=== PATIENT | female | born 1950 | race Caucasian/White ===

== ENCOUNTER 2020-02-29 08:02 | Outpatient (REF) | payer MEDICARE, OTHER, SELFPAY ==
--- NOTE | 2020-02-29 08:07 | MM_ITS ---
EXAMINATION: BONE DENSITOMETRY CLINICAL INDICATION: Age-related osteoporosis without current pathological fracture. COMPARISON: This is the patient's baseline examination. TECHNIQUE: Using a [employer] DXA System (software version: 13.1) manufactured by [employer], dual-energy x-ray absorptiometry was performed of the lumbar spine and left hip. The images are of good technical quality. Summary results are attached. FINDINGS: AP SPINE L1-L4: Current: BMD 1.035 g/cm2, Z-score 0.3, T-score -1.2, osteopenia, 3.2% increase from previous, 4.9% increase from baseline (<5% change is not significant). Prior: BMD 1.003 g/cm2. Baseline: BMD 0.987 g/cm2. LEFT FEMUR, NECK: Current: BMD 0.689 g/cm2, Z-score -1.0, T-score -2.5, osteoporosis. Prior: BMD 0.681 g/cm2. Baseline: BMD 0.738 g/cm2. LEFT FEMUR, TOTAL: Current: BMD 0.679 g/cm2, Z-score -1.3, T-score -2.6, osteoporosis, 3.3% decrease from previous, 9.2% decrease from baseline (<5% change is not significant). Prior: BMD 0.702 g/cm2. Baseline: BMD 0.748 g/cm2. IDENTIFIED RISK FACTORS: Osteoporosis. HISTORY OF FRACTURE: None listed. MEDICATIONS: Calcium supplements or multivitamin, bisphosphonates. MM/XR DEXA axial skeleton IMPRESSION: 1. DIAGNOSIS: Osteoporosis based on the lowest T-score value of -2.6 in the total femur applying World Health Organization criteria. 2. 10-YEAR FRACTURE RISK PREDICTION, FRAX: Major osteoporotic fracture (clinical spine, forearm, hip or shoulder) 14.8%. Hip fracture 3.7%. 3. Treatment Recommendations: NOF guidelines recommend consideration for treatment in postmenopausal women and men age 50 and older presenting with the following: -A hip or vertebral (clinical or morphometric) fracture. -T-score less than or equal to -2.5 at the femoral neck or spine after appropriate evaluation to exclude secondary causes. -Low bone mass at the hip or spine and a 10-year fracture probability by FRAX of greater than or equal to 3% for hip fracture or greater than or equal to 20% for major osteoporotic fracture based on the [place] adapted WHO algorithm. 4. Other Recommendations: All treatment decisions require clinical judgment and consideration of individual patient factors, including patient preferences, comorbidities, previous drug use, risk factors not captured in the FRAX model (e.g. frailty, falls, vitamin D deficiency, increased bone turnover, interval significant decline in bone density) and possible under or overestimation of fracture risk by FRAX. Additional medical evaluation for secondary cause of low bone mineral density may be appropriate. FUTURE SCAN RECOMMENDATION: People with diagnosed cases of osteoporosis or at high risk for fracture should have regular bone mineral density tests. For patients eligible for Medicare, routine testing is allowed once every 2 years. The testing frequency can be increased to one year for patients who have rapidly progressing disease, those who are receiving or discontinuing medical therapy to restore bone mass, or have additional risk factors.
== END 2020-02-29 08:03 | disposition home or self-care (01) ==
LOC: HO.MAMMO 08:02
PROVIDERS: PCP Internal Medicine; Visit Provider Internal Medicine
DX: M81.0 Age-related osteoporosis without current pathological fracture (principal)
CPT/HCPCS: 77080

== ENCOUNTER → 2020-07-25 11:41 | Outpatient (BNVA) | payer MEDICARE, OTHER, SELFPAY | PROVIDERS: PCP Internal Medicine; Visit Provider Internal Medicine | DX: Z13.89 Encounter for screening for other disorder (principal) | CPT/HCPCS: Q3014 ==

== ENCOUNTER 2020-07-29 07:05 | Outpatient (REF) | payer MEDICARE, OTHER, SELFPAY ==
--- NOTE | ~2020-07-29 | MR_ITS ---
EXAMINATION: MR PELVIS WITHOUT AND WITH CONTRAST CLINICAL INFORMATION: Pelvic and perineal pain. Previous exams indicates history of ovarian neoplasm. COMPARISON: Previous CT of the abdomen and pelvis February 2009 and previous pelvic ultrasounds most recent November 2017 TECHNIQUE: Sagittal, axial and coronal sequences through the pelvis with and without gadolinium. The patient received 6.5 mL intravenous Gadavist contrast. FINDINGS: The uterus is normal in size and shape measuring 5.3 x 2.9 x 4.6 cm in sagittal, AP and transverse dimension. No focal uterine lesion is seen. The endometrium does not appear thickened measuring 0.1 cm. There are nabothian cysts in the cervix. There is a small 7 x 8 mm lesion in the left adnexa measuring 7 x 8 mm. This is low signal on T1-weighted sequences, high signal on T2-weighted sequences and does not demonstrate enhancement. Appearance is suggestive of a small left ovarian cyst. The previously identified calcification in the right adnexa is not appreciated by MRI. Adnexa otherwise appear unremarkable. No ascites or adenopathy is seen. Visualized bowel is unremarkable. Vascular structures are unremarkable. No hernia is seen. There is a right hip replacement. There is a small amount of fluid seen in the soft tissues adjacent to the right hip joint anteriorly adjacent to the right iliopsoas muscle. There is severe arthritis at the left hip joint with joint space narrowing, small osteophytes and subchondral cyst formation. The left labrum appears irregular and may be torn. There is edema seen in the left femoral head and neck. A fracture is not appreciated. There are degenerative changes of the visualized lower lumbar spine. MR/MR pelvis wo/w con IMPRESSION: 7 x 8 mm simple left adnexal cyst. Severe left hip arthritis with joint space narrowing and subchondral cyst formation. There is edema in the left femoral head and neck and likely abnormal left labrum. No fracture is appreciated. This could be better evaluated with dedicated left hip MRI if clinically indicated..
[2020-07-29 08:06] LABS: Alanine Aminotransferase 13 U/L (0-31); Albumin Level 4.2 g/dL (3.5-5.0); Alkaline Phosphatase 83 U/L (39-117); Anion Gap 9 (12-20); Aspartate Amino Transferase 15 U/L (5-31); Bilirubin Total 0.8 mg/dL (0.0-1.0); Blood Urea Nitrogen 22 mg/dL (9-16); Calcium 9.3 mg/dL (8.4-10.2); Carbon Dioxide 29 mmol/L (22-29); Chloride 106 mmol/L (96-108); Estimated Glomerular Filt Rate > 60; Glucose Random 79 mg/dL (60-115); Phosphorus 3.3 mg/dL (2.7-4.5); Potassium 3.9 mmol/L (3.3-5.1); Sodium 140 mmol/L (135-145); Total Protein 6.6 g/dL (6.5-8.0)
[2020-07-29 08:26] LABS: Free T4 (Free Thyroxine) 1.32 ng/dL (0.71-1.85); Thyroid Stimulating Hormone 1.04 uIU/mL (0.32-4.0); Vitamin D 25-OH Total 38.3 ng/mL (>30)
[2020-07-30 11:17] LABS: Calcium (PTHI) 9.2 mg/dL (8.6-10.4); PTHI 39 pg/mL (14-64)
[2020-07-31 08:41] LABS: Calcium, Ionized 5.1 mg/dL (4.8-5.6)
[2020-07-31 18:02] LABS: Prot Elec - Albumin 4.2 g/dL (3.8-4.8); Prot Elec - Alpha1 0.3 g/dL (0.2-0.3); Prot Elec - Alpha2 0.6 g/dL (0.5-0.9); Prot Elec - Beta 1 0.3 g/dL (0.4-0.6); Prot Elec - Beta 2 0.3 g/dL (0.2-0.5); Prot Elec - Gamma 0.8 g/dL (0.8-1.7); Prot Elec - Total Protein 6.5 g/dL (6.1-8.1)
[2020-08-02 16:46] LABS: Alkaline Phosphatase Bone 14.9 mcg/L (5.6-29.0)
== END 2020-07-29 07:06 | disposition home or self-care (01) ==
LOC: HO.MRI 07:05
PROVIDERS: Absent Provider Internal Medicine; PCP Internal Medicine; Visit Provider Internal Medicine
DX: R10.2 Pelvic and perineal pain (principal); S39.013A Strain of muscle, fascia and tendon of pelvis, initial encounter; M81.0 Age-related osteoporosis without current pathological fracture; E55.9 Vitamin D deficiency, unspecified
CPT/HCPCS: 36415; 72197; 80053; 82306; 82330; 83970; 84075; 84100; 84155; 84165; 84439; 84443; A9585

== ENCOUNTER 2020-07-31 06:44 | Outpatient (REF) | payer MEDICARE, OTHER, SELFPAY ==
[2020-07-31 11:05] LABS: Creatinine, mg/dL 126.25
[2020-07-31 13:13] LABS: Creatinine, 24Hr Urine 0.7 G/Day (1.0-2.0); Total Volume 24 Hour Urine 575 mL
[2020-08-01 18:37] LABS: Calcium, 24 Hr Urine 71 mg/24 h; Calcium/Creatinine Ratio 108 mg/g creat (30-275); Creatinine 24Hr Urine 0.66 g/24 h (0.50-2.15)
== END 2020-07-31 06:45 | disposition home or self-care (01) ==
LOC: HO.LNP 06:44
PROVIDERS: Visit Provider Internal Medicine
DX: M81.0 Age-related osteoporosis without current pathological fracture (principal)
CPT/HCPCS: 82340; 82570

== ENCOUNTER 2020-07-31 07:00 | Outpatient (RCR) | payer MEDICARE, OTHER, SELFPAY ==
--- NOTE | 2020-07-31 08:07 | MHC.PT.DC ---
[facility] [place] Office [place] Office [place] Office [address] [phone] F: [phone] F: [phone] F: [phone] F: [phone] Physical Therapy Discharge Report Diagnosis: LEFT HIP STRAIN Date of Surgery: NA Date of Evaluation: 05/28/20 Date of Discharge: 07/31/20 Treatments to Date: 16 Cancellations to Date: 0 No Shows to Date: 0 Discharge Status: Achieved Goals Improved Function Independent with HEP Patient Elected to Stop Discharge Summary: Jenelle had a Hip/pelvis MRI and it showed a labral tear and severe hip arthritis. The patient was given a HEP for hip strengthening. We discharged from skilled PT due to pt plateauing with pain levels. She has made improvements in movement patterns and motion, but she was still having pain with certain hip motions, pain upon initial standing. Electronically signed by: Enriqueta King PT DPT Please sign and return to therapist. Thank you for your referral.
== END 2020-09-17 08:00 | disposition home or self-care (01) ==
LOC: HO.PT 07:00
PROVIDERS: PCP Internal Medicine; Visit Provider Physician Assistant
DX: S39.013A Strain of muscle, fascia and tendon of pelvis, initial encounter (principal)
CPT/HCPCS: 97035; 97110; 97112; 97116; 97140; 97162; 97535

== ENCOUNTER 2020-09-10 06:54 | Outpatient (REF) | payer MEDICARE, OTHER, SELFPAY ==
[2020-09-10 08:13] LABS: Alanine Aminotransferase 11 U/L (0-31); Albumin Level 3.9 g/dL (3.5-5.0); Alkaline Phosphatase 72 U/L (39-117); Anion Gap 11 (12-20); Aspartate Amino Transferase 16 U/L (5-31); Bilirubin Total 0.7 mg/dL (0.0-1.0); Blood Urea Nitrogen 20 mg/dL (9-16); Calcium 9.4 mg/dL (8.4-10.2); Carbon Dioxide 27 mmol/L (22-29); Chloride 108 mmol/L (96-108); Cholesterol 222 mg/dL; Estimated Glomerular Filt Rate > 60; Glucose Fasting 101 mg/dL (60-99); HDL Cholesterol 65 mg/dL; LDL Cholesterol Calculated 147 mg/dl; Sodium 142 mmol/L (135-145); Total Protein 6.2 g/dL (6.5-8.0); Triglycerides 51 mg/dL
== END 2020-09-10 06:55 | disposition home or self-care (01) ==
LOC: HO.LAB 06:54
PROVIDERS: Absent Provider Internal Medicine; PCP Internal Medicine; Visit Provider Internal Medicine
DX: E78.5 Hyperlipidemia, unspecified (principal); E78.00 Pure hypercholesterolemia, unspecified; E03.9 Hypothyroidism, unspecified
CPT/HCPCS: 36415; 80053; 80061; 84443

== ENCOUNTER 2020-10-08 06:40 | Day surgery (SDC) | payer MEDICARE, OTHER, SELFPAY ==
--- NOTE | 2020-10-07 09:31 | HO.ANESPROP2 ---
Documented by User: Suzie Burrell 10/07/20 09:31 HPI - Anesthesia Eval Consult details Narrative: 70yo F for Colonoscopy PMFSH Active Problems Active Problems: All Active Problems (Updated 09/12/20 @ 09:09 by Brittney Cruz MD) Dyslipidemia (Acute) Hip pain (Acute) Vitamin D deficiency (Acute) Pelvic pain in female (Acute) Strain of left inguinal muscle (Acute) Osteoporosis (Acute) Depression with anxiety (Acute) Hypothyroidism (Acute) Past Medical History Medical History Depression with anxiety Dyslipidemia Hip pain History of breast cancer Hypothyroidism Osteoporosis Pelvic pain in female Vitamin D deficiency Family History Family History Father FH: prostate cancer Mother Stroke Hypertension Osteoporosis Sister COPD (chronic obstructive pulmonary disease) Surgical History Surgical History History of section History of hip replacement History of lumpectomy of right breast Social History Social History Housing: House Alcohol intake: never Patient Tobacco Use Status: Never used Tobacco Second Hand Smoke Exposure: No Use of substances other than those prescribed or required for medical reasons: No Are you DNR?: No Advance Directives: Yes Advance Directives on File: Yes Advance Directives Date on File: 10/08/20 service: No Current occupational status: employed (self employed) Meds Allergies Allergy/AdvReac Type Severity Reaction Status Date / Time No Known Allergies Allergy Verified 09/12/20 08:18 Home Medications Medication Instructions Recorded Confirmed Last Taken Type aspirin 81 mg tablet,delayed 81 mg PO DAILY 01/04/20 09/12/20 09/24/20 History release Exam Exam Date and Time: October 07, 2020 0931 Pertinent Lab Results Pertinent Lab Results: Laboratory Tests 09/10/20 07:12 Sodium 142 Potassium 4.0 Chloride 108 Carbon Dioxide 27 BUN 20 H Creatinine 0.83 Assessment and Plan Assessment Anesthesia Assessment: Chart Reviewed Documented by User: Kristin Ramirez 10/08/20 08:09 PMFSH Past Medical History Medical History Depression with anxiety Dyslipidemia Hip pain History of breast cancer Hypothyroidism Osteoporosis Pelvic pain in female Vitamin D deficiency Family History Family History Father FH: prostate cancer Mother Stroke Hypertension Osteoporosis Sister COPD (chronic obstructive pulmonary disease) Surgical History Surgical History History of section History of hip replacement History of lumpectomy of right breast Social History Social History Housing: House Alcohol intake: never Patient Tobacco Use Status: Never used Tobacco Second Hand Smoke Exposure: No Use of substances other than those prescribed or required for medical reasons: No Are you DNR?: No Advance Directives: Yes Advance Directives on File: Yes Advance Directives Date on File: 10/08/20 service: No Current occupational status: employed (self employed) Meds Allergies Allergy/AdvReac Type Severity Reaction Status Date / Time No Known Allergies Allergy Verified 09/12/20 08:18 Home Medications Medication Instructions Recorded Confirmed Last Taken Type aspirin 81 mg tablet,delayed 81 mg PO DAILY 01/04/20 09/12/20 09/24/20 History release Exam Airway Mallampati Class: I TM Dist: >3cm Neck ROM: Full Loose/Missing/Broken Teeth: No Heart: RRR Lungs: CTA Assessment and Plan Assessment Anesthesia Assessment: Anesthesia Plan Discussed and Chart Reviewed Final Anesthetic Review NPO: Yes ASA Class: II Final Preanesthetic Review: Meds/Allgs Chart Reviewed, Consent Obtained/Reviewed and Anes Risks/Benef Reviewed Patient Risk: Low Procedure Risk: Low Anesthetic Plan Anesthetic Plan: MAC: Disposition: Standard PACU
[2020-10-08 07:05] VITALS: BP 128/73; PULSE 70; RESP 16; TEMP 36.1; O2SAT 99; BMI 22.5
[2020-10-08] MEDS: Lactated Ringers 1,000 ML 100 ML IVCONT (07:16)
--- NOTE | 2020-10-08 07:59 | MHC.SHP ---
Pre-Procedural Eval Section A Date of Service: 10/08/20 Section B Chief Complaint: Screening Details of Present Illness: see H&P no changes Relevant Family History (Specify if Yes): No Relevant Social History: None Present Medications: see Short Stay Collaborative assessment Medical History: No relevant PMH History of Previous Operations: No relevant previous surgery Allergies: Allergies Allergy/AdvReac Type Severity Reaction Status Date / Time No Known Allergies Allergy Verified 09/12/20 08:18 Review of Systems Sugical H&P ROS: Negative: Constitution, Cardiovascular, Respiratory, Neurological, Psychiatric, Hem-Onc, Allergic/Immunologic, Gastrointestinal, Genitourinary, Musculoskeletal, Integumentary, Endocrine and Eyes/Ears/Nose/Throat Exam Surgical H&P Exam: Normal: HEENT, Normal: Heart, Normal: Lungs, Normal: Extremities, Normal: Abdomen, Normal: Skin and Normal: Neurological Plan Diagnosis/Plan: Unchanged I have reviewed the history and physical and performed a pertinent physical examination on my patient. No changes have occurred unless specified.
[2020-10-08 08:35] VITALS: BP 101/55; PULSE 65; RESP 18; TEMP 36.1; O2SAT 100
--- NOTE | 2020-10-08 08:36 | PM.OP ---
Brief Operative Note Date of Service: 10/08/20 Pre-op diagnosis: screening Post-op diagnosis: same (colon polyp) Procedure: colonoscopy Surgeon: Ankur Hull Anesthesia: MAC Was an Forging Dies Final Finisher used for this Procedure?: No Estimated blood loss (mL): 2 Pathology: other (rectal polyp) Condition: stable Disposition: PACU
[2020-10-08 08:50] VITALS: BP 95/62; PULSE 71; RESP 16; TEMP 36.1; O2SAT 99
--- NOTE | 2020-10-08 08:56 | OP_ITS ---
SURGEON: Ankur Hull MD INDICATIONS: Colon cancer screening and prior history of adenomatous colon polyps. PREOPERATIVE DIAGNOSIS: POSTOPERATIVE DIAGNOSIS: PROCEDURE PERFORMED: ESTIMATED BLOOD LOSS: COMPLICATIONS: ANESTHESIA: ASSISTANTS: SPECIMENS: PROCEDURE: Colonoscopy to the terminal ileum with biopsy. MEDICATIONS: Monitored anesthesia care. DESCRIPTION OF PROCEDURE: History and physical performed. The risks and benefits of the procedure were explained to the patient. Informed consent was obtained. The patient was placed in the left lateral decubitus position. A digital rectal exam was performed and was found to be normal. The Olympus pediatric video colonoscope was introduced into the rectum and advanced to the cecum without difficulty. The cecum was identified by transillumination, palpation, and identification of the ileocecal valve. Examination was performed and the scope was removed. She tolerated the procedure well and was taken to recovery area in stable condition. FINDINGS: The terminal ileum was normal. The visualized colonic mucosa was within normal limits without evidence of masses or ulcers. There was some liquid stool, which was washed and suctioned. A single polyp measuring less than 5 mm that appeared hyperplastic was located in the rectum. This was removed with biopsy forceps. No other polyps were identified. There was very minimal diverticulosis of the sigmoid. Retroflexed examination showed some internal hemorrhoids. IMPRESSION: Colon polyp. RECOMMENDATION: Follow up the biopsy results. MD TORREY Abel/MATT / [id number]
== END 2020-10-08 09:50 | disposition home or self-care (01) ==
PROVIDERS: PCP Internal Medicine; Visit Provider Internal Medicine Gastroenterology
PROC: 0DJD8ZZ Inspection of Lower Intestinal Tract, Via Natural or Artificial Opening Endoscopic (ICD-10-PCS; CPT 45378; principal; 2020-10-08 08:10)
DX: Z12.11 Encounter for screening for malignant neoplasm of colon (principal); Z86.010 Personal history of colon polyps; K62.1 Rectal polyp; K57.30 Diverticulosis of large intestine without perforation or abscess without bleeding; K64.8 Other hemorrhoids; E78.5 Hyperlipidemia, unspecified; E03.9 Hypothyroidism, unspecified; E55.9 Vitamin D deficiency, unspecified; Z85.3 Personal history of malignant neoplasm of breast; Z79.899 Other long term (current) drug therapy; Z79.82 Long term (current) use of aspirin
CPT/HCPCS: 45380; 88305

== ENCOUNTER → 2020-10-09 07:25 | Outpatient (BNVA) | payer MEDICARE, OTHER, SELFPAY | PROVIDERS: PCP Internal Medicine; Visit Provider Internal Medicine | DX: M81.0 Age-related osteoporosis without current pathological fracture (principal); E03.9 Hypothyroidism, unspecified; E55.9 Vitamin D deficiency, unspecified | CPT/HCPCS: 99212 ==

== ENCOUNTER 2021-01-18 08:13 | Outpatient (REF) | payer MEDICARE, OTHER, SELFPAY ==
[2021-01-18 09:17] LABS: Alanine Aminotransferase 44 U/L (0-31); Albumin Level 4.3 g/dL (3.5-5.0); Alkaline Phosphatase 112 U/L (39-117); Anion Gap 12 (12-20); Aspartate Amino Transferase 30 U/L (5-31); Bilirubin Total 0.6 mg/dL (0.0-1.0); Blood Urea Nitrogen 21 mg/dL (9-16); Calcium 9.8 mg/dL (8.4-10.2); Carbon Dioxide 29 mmol/L (22-29); Chloride 105 mmol/L (96-108); Cholesterol 218 mg/dL; Estimated Glomerular Filt Rate > 60; Glucose Fasting 90 mg/dL (60-99); HDL Cholesterol 57 mg/dL; LDL Cholesterol Calculated 149 mg/dl; Potassium 4.8 mmol/L (3.3-5.1); Sodium 141 mmol/L (135-145); Total Protein 7.2 g/dL (6.5-8.0); Triglycerides 64 mg/dL
[2021-01-18 09:38] LABS: TSH reflex Free T4 3.03 uIU/mL (0.32-4.0)
[2021-01-18 09:39] LABS: Thyroid Stimulating Hormone 3.33 uIU/mL (0.32-4.0)
[2021-01-23 17:40] LABS: Vitamin D 25-OH, D2 <4 ng/mL; Vitamin D 25-OH, D3 47 ng/mL; Vitamin D 25-OH, Total 47 ng/mL (30-100)
== END 2021-01-18 08:14 | disposition home or self-care (01) ==
LOC: HO.LAB 08:13
PROVIDERS: PCP Internal Medicine; Visit Provider Internal Medicine
DX: E78.00 Pure hypercholesterolemia, unspecified (principal); E78.5 Hyperlipidemia, unspecified; E55.9 Vitamin D deficiency, unspecified
CPT/HCPCS: 36415; 80053; 80061; 82306; 84443

== ENCOUNTER 2021-06-16 07:12 | Outpatient (REF) | payer MEDICARE, OTHER, SELFPAY ==
[2021-06-16 08:43] LABS: Alanine Aminotransferase 21 U/L (0-31); Albumin Level 4.1 g/dL (3.5-5.0); Alkaline Phosphatase 73 U/L (39-117); Anion Gap 13 (12-20); Aspartate Amino Transferase 19 U/L (5-31); Bilirubin Total 0.9 mg/dL (0.0-1.0); Blood Urea Nitrogen 21 mg/dL (9-16); Calcium 9.7 mg/dL (8.4-10.2); Carbon Dioxide 26 mmol/L (22-29); Chloride 108 mmol/L (96-108); Cholesterol 222 mg/dL; Estimated Glomerular Filt Rate > 60; Glucose Fasting 86 mg/dL (60-99); HDL Cholesterol 62 mg/dL; LDL Cholesterol Calculated 148 mg/dl; Phosphorus 3.5 mg/dL (2.7-4.5); Potassium 4.5 mmol/L (3.3-5.1); Sodium 142 mmol/L (135-145); Total Protein 6.6 g/dL (6.5-8.0); Triglycerides 62 mg/dL
[2021-06-16 09:08] LABS: Free T4 (Free Thyroxine) 1.34 ng/dL (0.71-1.85); Thyroid Stimulating Hormone 0.68 uIU/mL (0.32-4.0); Vitamin D 25-OH Total 41.2 ng/mL (>30)
[2021-06-17 11:56] LABS: Calcium (PTHI) 9.6 mg/dL (8.6-10.4); PTHI 38 pg/mL (16-77)
[2021-06-18 08:20] LABS: Calcium, Ionized 5.2 mg/dL (4.8-5.6)
[2021-06-19 14:16] LABS: Alkaline Phosphatase Bone 14.8 mcg/L (5.6-29.0)
[2021-06-19 18:22] LABS: N-Telopeptide 47 (see note); NTXCreaRU 93 mg/dL (20-275)
== END 2021-06-16 07:13 | disposition home or self-care (01) ==
LOC: HO.LAB 07:12
PROVIDERS: Internal Medicine; PCP Internal Medicine; Visit Provider Internal Medicine
DX: M81.0 Age-related osteoporosis without current pathological fracture (principal); E55.9 Vitamin D deficiency, unspecified; E78.5 Hyperlipidemia, unspecified
CPT/HCPCS: 36415; 80053; 80061; 82306; 82330; 82523; 83970; 84075; 84100; 84439; 84443

== ENCOUNTER 2021-06-18 08:13 | Outpatient (REF) | payer MEDICARE, OTHER, SELFPAY ==
[2021-06-18 14:14] LABS: Creatinine, 24Hr Urine 0.6 G/Day (1.0-2.0); Total Volume 24 Hour Urine 575 mL
[2021-06-20 15:40] LABS: Calcium, 24 Hr Urine 61 mg/24 h; Calcium/Creatinine Ratio 100 mg/g creat (30-275); Creatinine 24Hr Urine 0.61 g/24 h (0.50-2.15)
== END 2021-06-18 08:14 | disposition home or self-care (01) ==
LOC: HO.HMGCLNP 08:13
PROVIDERS: Visit Provider Internal Medicine
DX: M81.0 Age-related osteoporosis without current pathological fracture (principal); E03.9 Hypothyroidism, unspecified; E55.9 Vitamin D deficiency, unspecified
CPT/HCPCS: 82340; 82570; 99212

== ENCOUNTER → 2021-07-31 12:36 | Outpatient (BNVA) | payer MEDICARE, OTHER, SELFPAY | PROVIDERS: PCP Internal Medicine; Visit Provider Internal Medicine Endocrinology, Diabetes & Metabolism | DX: M81.0 Age-related osteoporosis without current pathological fracture (principal) | CPT/HCPCS: 96372; J0897 ==

== ENCOUNTER 2021-09-01 06:57 | Outpatient (REF) | payer MEDICARE, OTHER, SELFPAY ==
[2021-09-01 07:59] LABS: Alanine Aminotransferase 13 U/L (0-31); Albumin Level 4.2 g/dL (3.5-5.0); Alkaline Phosphatase 72 U/L (39-117); Anion Gap 11 (12-20); Aspartate Amino Transferase 14 U/L (5-31); Bilirubin Total 0.6 mg/dL (0.0-1.0); Blood Urea Nitrogen 28 mg/dL (9-16); Calcium 9.8 mg/dL (8.4-10.2); Carbon Dioxide 25 mmol/L (22-29); Chloride 106 mmol/L (96-108); Estimated Glomerular Filt Rate > 60; Glucose Random 118 mg/dL (60-115); Potassium 4.5 mmol/L (3.3-5.1); Sodium 137 mmol/L (135-145); Total Protein 6.7 g/dL (6.5-8.0)
[2021-09-01 08:22] LABS: Free T4 (Free Thyroxine) 1.04 ng/dL (0.71-1.85); Thyroid Stimulating Hormone 2.58 uIU/mL (0.32-4.0); Vitamin D 25-OH Total 38.9 ng/mL (>30)
[2021-09-02 14:16] LABS: Calcium (PTHI) 10.1 mg/dL (8.6-10.4); PTHI 38 pg/mL (16-77)
== END 2021-09-01 06:58 | disposition home or self-care (01) ==
LOC: HO.LAB 06:57
PROVIDERS: PCP Internal Medicine; Visit Provider Internal Medicine
DX: E03.9 Hypothyroidism, unspecified (principal); E55.9 Vitamin D deficiency, unspecified; M81.0 Age-related osteoporosis without current pathological fracture
CPT/HCPCS: 36415; 80053; 82306; 83970; 84439; 84443

== ENCOUNTER 2021-11-05 06:48 | Outpatient (REF) | payer MEDICARE, OTHER, SELFPAY ==
[2021-11-05 07:46] LABS: Alanine Aminotransferase 16 U/L (0-31); Alkaline Phosphatase 46 U/L (39-117); Anion Gap 11 (12-20); Aspartate Amino Transferase 17 U/L (5-31); Bilirubin Total 0.6 mg/dL (0.0-1.0); Blood Urea Nitrogen 17 mg/dL (9-16); Calcium 9.2 mg/dL (8.4-10.2); Carbon Dioxide 27 mmol/L (22-29); Chloride 107 mmol/L (96-108); Cholesterol 207 mg/dL; Estimated Glomerular Filt Rate > 60; Glucose Fasting 91 mg/dL (60-99); HDL Cholesterol 58 mg/dL; LDL Cholesterol Calculated 138 mg/dl; Potassium 4.3 mmol/L (3.3-5.1); Sodium 141 mmol/L (135-145); Total Protein 6.2 g/dL (6.5-8.0); Triglycerides 58 mg/dL
[2021-11-05 08:07] LABS: Thyroid Stimulating Hormone 0.88 uIU/mL (0.32-4.0)
[2021-11-12 20:55] LABS: N-Telopeptide 21 (see note); NTXCreaRU 88 mg/dL (20-275)
== END 2021-11-05 06:49 | disposition home or self-care (01) ==
LOC: HO.LAB 06:48
PROVIDERS: Internal Medicine; PCP Internal Medicine; Visit Provider Internal Medicine
DX: E78.5 Hyperlipidemia, unspecified (principal); E03.9 Hypothyroidism, unspecified; E55.9 Vitamin D deficiency, unspecified; M81.0 Age-related osteoporosis without current pathological fracture
CPT/HCPCS: 36415; 80053; 80061; 82306; 82523; 84443

== ENCOUNTER 2022-02-09 06:48 | Outpatient (REF) | payer MEDICARE, OTHER, SELFPAY ==
[2022-02-09 07:58] LABS: Alanine Aminotransferase 17 U/L (0-31); Albumin Level 4.3 g/dL (3.5-5.0); Alkaline Phosphatase 59 U/L (39-117); Anion Gap 15 (12-20); Aspartate Amino Transferase 19 U/L (5-31); Bilirubin Total 0.9 mg/dL (0.0-1.0); Blood Urea Nitrogen 26 mg/dL (9-16); Calcium 9.7 mg/dL (8.4-10.2); Carbon Dioxide 26 mmol/L (22-29); Chloride 105 mmol/L (96-108); Estimated Glomerular Filt Rate > 60; Glucose Random 85 mg/dL (60-115); Potassium 4.2 mmol/L (3.3-5.1); Sodium 142 mmol/L (135-145); Total Protein 6.7 g/dL (6.5-8.0)
[2022-02-09 08:19] LABS: Thyroid Stimulating Hormone 2.91 uIU/mL (0.32-4.0)
[2022-02-10 10:56] LABS: Calcium (PTHI) 9.8 mg/dL (8.6-10.4); PTHI 35 pg/mL (16-77)
== END 2022-02-09 06:49 | disposition home or self-care (01) ==
LOC: HO.LAB 06:48
PROVIDERS: Internal Medicine; PCP Internal Medicine; Visit Provider Internal Medicine
DX: E03.9 Hypothyroidism, unspecified (principal); M81.0 Age-related osteoporosis without current pathological fracture
CPT/HCPCS: 36415; 80053; 83970; 84443; 96372; J0897

== ENCOUNTER 2022-02-24 07:07 | Outpatient (REF) | payer MEDICARE, OTHER, SELFPAY ==
[2022-02-24 08:33] LABS: Estimated Glomerular Filt Rate > 60
[2022-02-26 14:14] LABS: Calcium (PTHI) 9.4 mg/dL (8.6-10.4); PTHI 60 pg/mL (16-77)
== END 2022-02-24 07:08 | disposition home or self-care (01) ==
LOC: HO.LAB 07:07
PROVIDERS: PCP Internal Medicine; Visit Provider Internal Medicine
DX: M81.0 Age-related osteoporosis without current pathological fracture (principal)
CPT/HCPCS: 36415; 82565; 83970

== ENCOUNTER 2022-05-18 06:45 | Outpatient (REF) | payer MEDICARE, OTHER, SELFPAY ==
[2022-05-18 08:28] LABS: Alanine Aminotransferase 31 U/L (0-31); Albumin Level 3.9 g/dL (3.5-5.0); Alkaline Phosphatase 77 U/L (39-117); Anion Gap 12 (12-20); Aspartate Amino Transferase 24 U/L (5-31); Bilirubin Total 0.5 mg/dL (0.0-1.0); Blood Urea Nitrogen 28 mg/dL (9-16); Calcium 9.3 mg/dL (8.4-10.2); Carbon Dioxide 26 mmol/L (22-29); Chloride 108 mmol/L (96-108); Cholesterol 203 mg/dL; Estimated Glomerular Filt Rate > 60; Glucose Fasting 83 mg/dL (60-99); HDL Cholesterol 56 mg/dL; LDL Cholesterol Calculated 139 mg/dl; Potassium 4.4 mmol/L (3.3-5.1); Sodium 142 mmol/L (135-145); Total Protein 6.4 g/dL (6.5-8.0); Triglycerides 42 mg/dL
[2022-05-18 08:35] LABS: Thyroid Stimulating Hormone 3.67 uIU/mL (0.32-4.0)
== END 2022-05-18 06:46 | disposition home or self-care (01) ==
LOC: HO.LAB 06:45
PROVIDERS: Internal Medicine; PCP Internal Medicine; Visit Provider Internal Medicine
DX: E03.9 Hypothyroidism, unspecified (principal); E78.5 Hyperlipidemia, unspecified; E78.00 Pure hypercholesterolemia, unspecified
CPT/HCPCS: 36415; 80053; 80061; 84443

== ENCOUNTER 2022-08-11 10:56 | Outpatient (REF) | payer MEDICARE, OTHER, SELFPAY ==
[2022-08-11 12:22] LABS: Alanine Aminotransferase 19 U/L (0-31); Albumin Level 4.3 g/dL (3.5-5.0); Alkaline Phosphatase 60 U/L (39-117); Anion Gap 12 (12-20); Aspartate Amino Transferase 20 U/L (5-31); Blood Urea Nitrogen 19 mg/dL (9-16); Calcium 9.7 mg/dL (8.4-10.2); Carbon Dioxide 28 mmol/L (22-29); Chloride 110 mmol/L (96-108); Estimated Glomerular Filt Rate > 60; Glucose Random 88 mg/dL (60-115); Phosphorus 3.5 mg/dL (2.7-4.5); Potassium 4.9 mmol/L (3.3-5.1); Sodium 145 mmol/L (135-145); Total Protein 6.8 g/dL (6.5-8.0)
[2022-08-11 12:38] LABS: Free T4 (Free Thyroxine) 1.13 ng/dL (0.71-1.85); Thyroid Stimulating Hormone 1.52 uIU/mL (0.32-4.0); Vitamin D 25-OH Total 55.5 ng/mL (>30)
[2022-08-12 14:08] LABS: Calcium (PTHI) 9.7 mg/dL (8.6-10.4); PTHI 60 pg/mL (16-77)
== END 2022-08-11 10:57 | disposition home or self-care (01) ==
LOC: HO.LAB 10:56
PROVIDERS: PCP Internal Medicine; Visit Provider Internal Medicine
DX: E03.9 Hypothyroidism, unspecified (principal); M81.0 Age-related osteoporosis without current pathological fracture; E55.9 Vitamin D deficiency, unspecified
CPT/HCPCS: 36415; 80053; 82306; 83970; 84100; 84439; 84443

== ENCOUNTER → 2022-08-12 07:15 | Outpatient (BNVA) | payer MEDICARE, OTHER, SELFPAY | PROVIDERS: PCP Internal Medicine; Visit Provider Internal Medicine | DX: E03.9 Hypothyroidism, unspecified (principal); M81.0 Age-related osteoporosis without current pathological fracture; E55.9 Vitamin D deficiency, unspecified; Z79.620 Long term (current) use of immunosuppressive biologic | CPT/HCPCS: 96372; 99212; J0897 ==

== ENCOUNTER 2022-11-24 07:06 | Outpatient (REF) | payer MEDICARE, OTHER, SELFPAY ==
[2022-11-24 08:16] LABS: Albumin Level 4.2 g/dL (3.5-5.0); Calcium 9.8 mg/dL (8.4-10.2); Estimated Glomerular Filt Rate > 60
[2022-11-25 16:38] LABS: Calcium (PTHI) 9.6 mg/dL (8.6-10.4); PTHI 34 pg/mL (16-77)
== END 2022-11-24 07:07 | disposition home or self-care (01) ==
LOC: HO.LAB 07:06
PROVIDERS: PCP Internal Medicine; Visit Provider Internal Medicine
DX: M81.0 Age-related osteoporosis without current pathological fracture (principal)
CPT/HCPCS: 36415; 82040; 82310; 82565; 83970

== ENCOUNTER 2023-01-19 08:25 | Outpatient (AMB) | payer MEDICARE, OTHER, SELFPAY ==
[2023-01-19 08:32] VITALS: BP 126/72; PULSE 73; O2SAT 99; BMI 23.2
--- NOTE | 2023-01-19 08:32 | A.OFFPC_ITS ---
Vital Signs 01/19/23 08:32 Height 5 ft 7 in Weight 148 lb BMI 23.2 BP 126/72 Blood Pressure Location Lt brachial Position Sitting Pulse 73 Pulse Source Pulse Oximeter Pulse Oximetry (%) 99 Oxygen Delivery Method Room Air Intake Visit Reasons: PE Intake Note: Patient here for a physical exam Machine Wood Sander Required: No Accompanied by: Self / Same As Patient Allergies No Known Allergies Allergy (Verified 01/19/23 08:41) Medication List - Last Reconciled 01/19/23 by Brittney Cruz MD aspirin (Adult Low Dose Aspirin) 81 mg PO DAILY calcium carbonate (Calcium) 1,200 mg PO DAILY citalopram 30 mg (1.5 x 20 mg) PO DAILY 90 days denosumab (Prolia) 60 mg subcut [id number] levothyroxine 100 mcg PO DAILY 90 days omega [id number] oil 60-90-500 mg (Fish Oil) 1 cap PO DAILY propranolol 20 mg PO BID Tobacco use date assessed: 05/20/22 Fall risk assessment: No Falls in past year Last assessed Fall Risk: 01/19/23 Dental Screening Dental Screen Date: 01/19/23 Did you have a dental visit in the last 12 months?: Yes Did you have a dental problem in the last 6 months where you did not have access to dental care?: No Was dental information given to patient?: Patient has dentist HPI HPI Comments History of Present Illness Details This is a 72-year-old female with mild major depression that comes for her physical exam. Depression stable with citalopram. Last mammogram was November 2022 and was normal. Last colonoscopy was 2020 showing hyperplastic polyp. Last bone density was 2019 showing osteoporosis and bone density test will be repeated. Osteoporosis follow by Endocrinology. Denies any chest pain or shortness of breath. No need for Pap smears due to age. [facility] Medical History (Updated 01/19/23 @ 09:59 by Brittney Cruz MD) Right hip pain Pure hypercholesterolemia Constipation by delayed colonic transit Mild major depression, single episode MEHRAN (generalized anxiety disorder) Mass of right hand Dyslipidemia Hip pain Vitamin D deficiency Pelvic pain in female History of breast cancer Osteoporosis Depression with anxiety Hypothyroidism Surgical History History of left hip replacement History of lumpectomy of right breast History of section History of hip replacement Family History Father FH: prostate cancer Mother Stroke Hypertension Osteoporosis Sister COPD (chronic obstructive pulmonary disease) Social History Housing: House Alcohol intake: current Alcohol intake frequency: holidays/special occasions only Alcohol type: wine Patient Tobacco Use Status: Never used Tobacco e-Cigarette/Vaping Use: Never Used Second Hand Smoke Exposure: No Advance Directives Date on File: 10/08/20 service: No Current occupational status: employed Current occupational exposures/hazards: No Cognitive needs: No Hearing needs: No Vision needs: No Questionnaire Thrive Questionnaire Date Thrive assessed: 05/20/22 MEHRAN-7 AMB Questionnaire MEHRAN-7 Date MEHRAN - 7 assessed: 05/20/22 Source: Developed by Drs. Sebastian Mejia, Nazanin Whitt, Martin Wilson and colleagues, with an educational raffi from [employer]. Review of Systems Const All systems reviewed & are unremarkable except as noted in HPI and below Eyes Reports no additional complaints, Denies change in vision and Denies other visual disturbances Card Denies chest pain at rest, Denies chest pain with activity, Denies edema, Denies irregular heart rhythm, Denies claudication, Denies dyspnea, Denies dyspnea on exertion, Denies orthopnea, Denies paroxysmal nocturnal dyspnea and Denies slow heart rate Resp Denies cough, Denies dyspnea and Denies dyspnea on exertion GI Denies abdominal pain, Denies change in bowel habits, Denies excessive flatus, Denies nausea and Denies vomiting Denies urinary incontinence, Denies urinary hesitancy and Denies urinary urgency Musc Denies abnormal gait, Denies atrophy, Denies deformity and Denies limited range of motion Skin/Breast Denies bleeding lesions, Denies changing lesions and Denies rash Neuro Denies abnormal gait, Denies behavioral changes, Denies confusion and Denies lack of coordination Psych Denies behavioral changes and Denies confusion Physical exam (Primary Care) Vital Signs: Last Vital Signs Pulse 73 01/19/23 08:32 BP 126/72 01/19/23 08:32 Pulse Ox 99 01/19/23 08:32 Oxygen Delivery Method Room Air 01/19/23 08:32 BMI result Body Mass Index 23.2 Tobacco/Smoking Status: Tobacco use Status Tobacco use date assessed 05/20/22 01/19/23 08:36 Patient Tobacco Use Status Never used Tobacco 01/19/23 08:36 e-Cigarette/Vaping Use Never Used 01/19/23 08:36 Thrive Assessment: Date of Thrive Assessment Date Thrive assessed 05/20/22 01/19/23 08:36 Const General: No confusion Orientation/consciousness: patient oriented x3 and No confusion HENMT Head: Yes normal to inspection, Yes normocephalic and Yes atraumatic Ears: external ears normal Eyes General: appearance normal, both eyes and all related structures Eyelids: Yes eyelids normal Conjunctivae: conjunctivae normal Neck Neck: Yes normal visual inspection and Yes supple Resp Effort & Inspection: normal respiratory effort Auscultation: clear to auscultation bilaterally Cardio Jugular venous distension: no JVD Rate: regular rate Rhythm: regular rhythm Heart sounds: S1 normal heart sound present and S2 normal heart sound present GI Inspection: Yes normal to inspection Palpation (GI): Soft to palpation and nontender Auscultation: normal bowel sounds Skin General skin exam: no rashes or lesions noted Neuro General: patient oriented x3, no focal motor deficits and No confusion Extrem General: Yes full ROM Psych Appearance: grossly normal Assessment and Plan Assessment & Plan (1) Physical exam: Code(s): Z00.00 - Encounter for general adult medical examination without abnormal findings Plan: Repeat in a year. (2) Mild major depression, single episode: Code(s): F32.0 - Major depressive disorder, single episode, mild Plan: Continue citalopram. Orders: Orders XR DEXA axial skeleton Today N95.9 - Unspecified menopausal and perimenopausal disorder Comprehensive [place]. Panel Fast Today E78.00 - Pure hypercholesterolemia, unspecified Thyroid Stimulating Hormone Today E03.9 - Hypothyroidism, unspecified Lipid Panel Today E78.00 - Pure hypercholesterolemia, unspecified, E78.5 - Hyperlipidemia, unspecified Medications: New sumatriptan succinate do not exceed 8 doses per 24 hrs 25 mg PO Q2-4H PRN 9 tabs 0RF migraine headache 30 days Refilled propranolol 20 mg PO BID 180 tabs 0RF Coding Level of Care Code Est Pt Prev Care >65y(60190) Diagnoses Physical exam Z00.00 Mild major depression, single episode F32.0 Time Spent (min) 31
== END 2023-01-19 08:57 | disposition home or self-care (01) ==
LOC: HO.HMGH 08:25
PROVIDERS: PCP Internal Medicine; Visit Provider Internal Medicine
DX: Z00.00 Encounter for general adult medical examination without abnormal findings (principal); F32.0 Major depressive disorder, single episode, mild
CPT/HCPCS: 99397

== ENCOUNTER 2023-02-04 08:34 | Outpatient (REF) | payer MEDICARE, OTHER, SELFPAY ==
--- NOTE | ~2023-02-04 | MM_ITS ---
EXAMINATION: BONE DENSITOMETRY CLINICAL INDICATION: Menopause. COMPARISON: Previous BD dated 02/29/2020 and baseline BD dated 03/29/2008. TECHNIQUE: Using a [employer] DXA System (software version: 13.1) manufactured by [employer] dual-energy x-ray absorptiometry was performed of the lumbar spine and left forearm radius 33%. Patient with bilateral hip replacements. The images are of good technical quality. Summary results are attached. FINDINGS: AP SPINE L1-L4: Current: BMD 1.115 g/cm2, Z-score 1.1, T-score -0.5, normal, 7.7% increase from previous, 13.0% increase from baseline (<5% change is not significant). Prior: BMD 1.035 g/cm2. Baseline: BMD 0.987 g/cm2. LEFT FOREARM RADIUS 33%: BMD 0.643 g/cm2, Z-score -0.7, T-score -2.7, osteoporosis. IDENTIFIED RISK FACTORS: Menopause, osteoporosis. HISTORY OF FRACTURE: None listed. MEDICATIONS: Calcium, Prolia. MM/XR DEXA axial skeleton IMPRESSION: 1. DIAGNOSIS: Osteoporosis based on the lowest T-score value of -2.7 in the forearm radius 33% applying World Health Organization criteria. 2. 10-YEAR FRACTURE RISK PREDICTION, FRAX: According to the guidelines, FRAX calculation should only be performed on patients in the osteopenia bone density category. Therefore, FRAX was not performed on this patient. 3. Treatment Recommendations: NOF guidelines recommend consideration for treatment in postmenopausal women and men age 50 and older presenting with the following: -A hip or vertebral (clinical or morphometric) fracture. -T-score less than or equal to -2.5 at the femoral neck or spine after appropriate evaluation to exclude secondary causes. -Low bone mass at the hip or spine and a 10-year fracture probability by FRAX of greater than or equal to 3% for hip fracture or greater than or equal to 20% for major osteoporotic fracture based on the [place] adapted WHO algorithm. 4. Other Recommendations: All treatment decisions require clinical judgment and consideration of individual patient factors, including patient preferences, comorbidities, previous drug use, risk factors not captured in the FRAX model (e.g. frailty, falls, vitamin D deficiency, increased bone turnover, interval significant decline in bone density) and possible under or overestimation of fracture risk by FRAX. Additional medical evaluation for secondary cause of low bone mineral density may be appropriate. FUTURE SCAN RECOMMENDATION: People with diagnosed cases of osteoporosis or at high risk for fracture should have regular bone mineral density tests. For patients eligible for Medicare, routine testing is allowed once every 2 years. The testing frequency can be increased to one year for patients who have rapidly progressing disease, those who are receiving or discontinuing medical therapy to restore bone mass, or have additional risk factors.
== END 2023-02-04 08:35 | disposition home or self-care (01) ==
LOC: HO.MAMMO 08:34
PROVIDERS: PCP Internal Medicine; Visit Provider Internal Medicine
DX: Z13.820 Encounter for screening for osteoporosis (principal); Z78.0 Asymptomatic menopausal state
CPT/HCPCS: 77080

== ENCOUNTER 2023-02-09 08:35 | Outpatient (AMB) | payer MEDICARE, OTHER, SELFPAY ==
--- NOTE | 2023-02-09 08:37 | A.OFFVIS_ITS ---
Intake Vital Signs 02/09/23 08:38 Height 5 ft 7 in Weight 150 lb 5.684 oz BMI 23.5 BP 104/64 Blood Pressure Location Lt brachial Position Sitting Pulse 78 Pulse Source Pulse Oximeter Intake Visit Reasons: f/u osteoporosis and prolia Intake Note: Patient present for Osteoporosis and Prolia injection follow up visit. Previously followed by Dr. Kent. 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 The patient last saw Dr. Kent on 08/12/2022 First diagnosed in 2015. Received treatment in the past with Fosamax, from 2015 to 04/2020. Tolerated treatment well without complication. This was stopped by Dr. Rivera after she completed 5 years of therapy. She has Osteoporosis of the hip, and Osteopenia of the spine. Her BMD has worsened and she has failed treatment with Fosamax. After our initial visit she underwent a full biochemical evaluation for secondary causes of Osteoporosis, which was WNL. She then was started on Prolia as of 07/31/2021 and has received this q6 months. She is due for her third dose today. She has tolerated this well. No history of pathologic fracture or ONJ. Has 0-1 servings of dietary calcium per day in the form of yogurt. Takes Calcium supplement 1200 mg PO daily in divided doses. Does not take any Vitamin D currently. Denies ever using PPI, anticoagulant, antiepileptic or glucocorticoid medication. Does weight bearing exercise with [place] 4-5 days per week. 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 Menses was always regular. She is . She breastfed for a total of 18 months. Menopause was age 53. Denies a history of Kidney stones: Mother had a history of Osteoporosis. No Family history of hip fracture. UTD on dental cleanings and sees dentist every 6 months. No planned upcoming dental work or extractions. DXA dated 02/28/2021: FINDINGS: AP SPINE L1-L4: Current: BMD 1.035 g/cm2, Z-score 0.3, T-score -1.2, osteopenia, 3.2% increase from previous, 4.9% increase from baseline (<5% change is not significant). Prior: BMD 1.003 g/cm2. Baseline: BMD 0.987 g/cm2. LEFT FEMUR, NECK: Current: BMD 0.689 g/cm2, Z-score -1.0, T-score -2.5, osteoporosis. Prior: BMD 0.681 g/cm2. Baseline: BMD 0.738 g/cm2. LEFT FEMUR, TOTAL: Current: BMD 0.679 g/cm2, Z-score -1.3, T-score -2.6, osteoporosis, 3.3% decrease from previous, 9.2% decrea se from baseline (<5% change is not significant). Prior: BMD 0.702 g/cm2. Baseline: BMD 0.748 g/cm2. Labs: Laboratory Tests 08/11/22 11:06 Sodium 145 Potassium 4.9 Creatinine 0.88 Estimated GFR > 60 Phosphorus 3.5 Albumin 4.3 25-OH Vitamin D To lyn 55.5 TSH 1.52 Free T4 1.13 PFSH Medical History Right hip pain Pure hypercholesterolemia Constipation by delayed colonic transit Mild major depression, single episode MEHRAN (generalized anxiety disorder) Mass of right hand Dyslipidemia Hip pain Vitamin D deficiency Pelvic pain in female History of breast cancer Osteoporosis Depression with anxiety Hypothyroidism Surgical History History of left hip replacement History of lumpectomy of right breast History of section History of hip replacement Family History Father FH: prostate cancer Mother Stroke Hypertension Osteoporosis Sister COPD (chronic obstructive pulmonary disease) Social History Housing: House Alcohol intake: current Alcohol intake frequency: holidays/special occasions only Alcohol type: wine Patient Tobacco Use Status: Never used Tobacco e-Cigarette/Vaping Use: Never Used Second Hand Smoke Exposure: No Advance Directives Date on File: 10/08/20 service: No Current occupational status: employed Current occupational exposures/hazards: No Cognitive needs: No Hearing needs: No Vision needs: No Assessment & Plan Assessment & Plan (1) Osteoporosis: Code(s): M81.0 - Age-related osteoporosis without current pathological fracture Qualifiers: Osteoporosis type: age-related Presence of current pathological fracture: without current pathological fracture Qualified Code(s): M81.0 - Age- related osteoporosis without current pathological fracture Plan: This 72-year-old white female with a history of osteoporosis treated for 5 years with Fosamax and then Prolia for 1 1/2 years. Her DEXA bone density shows borderline osteoporosis in the hip with a T-score -2.7. Patient has not had fracture. Secondary workup is negative. The plan is to give a 4th dose of Prolia today. Will talk to the patient about transitioning off Prolia in 6 months on to either a dose of zoledronic acid or 1 additional year of alendronate to prevent rebound bone loss. Will check urine NTX prior to next visit Orders: Orders Collagen Crosslinks NTX 6 Months M81.0 - Age-related osteoporosis without current pathological fracture AMB Denosumab Injection Practice Supplied Today M81.0 - Age-related osteoporosis without current pathological fracture Medications: New Prolia (denosumab) 60 mg subcut ONCE 1 mL 0RF NS M81.0 - Age-related osteoporosis without current pathological fracture Coding Level of Care Code Est Pt Level 3 (97599) Diagnoses Age-related osteoporosis without current pathological fracture M81.0 Osteoporosis type: age-related Presence of current pathological fracture: without current pathological fracture
[2023-02-09 08:38] VITALS: BP 104/64; PULSE 78; BMI 23.5
--- NOTE | 2023-02-09 09:22 | AM.OFFVISNUR ---
Intake Vital Signs 02/09/23 08:38 Height 5 ft 7 in Weight 150 lb 5.684 oz BMI 23.5 BP 104/64 Blood Pressure Location Lt brachial Position Sitting Pulse 78 Pulse Source Pulse Oximeter Intake Visit Reasons: f/u osteoporosis and prolia Product Safety Professional Required: No Allergies No Known Allergies Allergy (Verified 02/09/23 08:48) Nursing Note Patient presented to clinic for Prolia injection this morning. She denies any pain, fever, rash, fatigue. She signed the consent form and agreed to the injection. Consent uploaded to patient chart. Office Meds Prolia 60 mg/mL subcutaneous syringe Performing Provider: Sebastian Luther MD Performing Location: [facility] Administered by: Juno Roy RN on 02/09/23 09:23 Dose Route Admin Location Dispensed Lot Number Expiration Date [facility] Lipstick Molder 60 mg subcut L arm 1 mL [id number] 05/19/25 [facility] Coding Diagnoses Age-related osteoporosis without current pathological fracture M81.0 Osteoporosis type: age-related Presence of current pathological fracture: without current pathological fracture Assessment & Plan Assessment & Plan (1) Osteoporosis: Code(s): M81.0 - Age-related osteoporosis without current pathological fracture Qualifiers: Osteoporosis type: age-related Presence of current pathological fracture: without current pathological fracture Qualified Code(s): M81.0 - Age-related osteoporosis without current pathological fracture Plan: Will f/u with Dr. Luther in 5 months. Orders: Orders Collagen Crosslinks NTX 6 Months M81.0 - Age-related osteoporosis without current pathological fracture AMB Denosumab Injection Practice Supplied Today M81.0 - Age-related osteoporosis without current pathological fracture
== END 2023-02-09 09:33 | disposition home or self-care (01) ==
PROVIDERS: PCP Internal Medicine; Visit Provider Internal Medicine Endocrinology, Diabetes & Metabolism
DX: M81.0 Age-related osteoporosis without current pathological fracture (principal)
CPT/HCPCS: 99213

== ENCOUNTER → 2023-02-09 08:35 | Outpatient (BNVA) | payer MEDICARE, OTHER, SELFPAY | PROVIDERS: PCP Internal Medicine; Visit Provider Internal Medicine Endocrinology, Diabetes & Metabolism | DX: M81.0 Age-related osteoporosis without current pathological fracture (principal) | CPT/HCPCS: 96372; 99212; J0897 ==

== ENCOUNTER 2023-08-07 07:13 | Outpatient (REF) | payer MEDICARE, OTHER, SELFPAY ==
[2023-08-07 08:49] LABS: Albumin Level 4.3 g/dL (3.5-5.0); Anion Gap 13 (12-20); Blood Urea Nitrogen 23 mg/dL (9-16); Calcium 9.2 mg/dL (8.4-10.2); Carbon Dioxide 26 mmol/L (22-29); Chloride 105 mmol/L (96-108); Estimated Glomerular Filt Rate > 60; Glucose Random 106 mg/dL (60-115); Potassium 4.3 mmol/L (3.3-5.1); Sodium 140 mmol/L (135-145)
[2023-08-15 22:17] LABS: N-Telopeptide 38 (see note); NTXCreaRU 125 mg/dL (20-275)
== END 2023-08-07 07:14 | disposition home or self-care (01) ==
LOC: HO.LAB 07:13
PROVIDERS: PCP Internal Medicine; Visit Provider Internal Medicine Endocrinology, Diabetes & Metabolism
DX: M81.0 Age-related osteoporosis without current pathological fracture (principal)
CPT/HCPCS: 36415; 80048; 82040; 82523

== ENCOUNTER 2023-08-10 07:33 | Outpatient (AMB) | payer MEDICARE, OTHER, SELFPAY ==
--- NOTE | 2023-08-10 08:22 | AM.OFFVISNUR ---
Intake Intake Visit Reasons: Prolia Allergies No Known Allergies Allergy (Verified 02/09/23 08:48) Office Meds Prolia 60 mg/mL subcutaneous syringe Performing Provider: Sebastian Luther MD Performing [place] [facility] Administered by: Peg Peñaloza RN on 08/10/23 08:22 Dose Route Admin Location Dispensed Lot Number Expiration Date NDC [place] 60 mg subcut Left upper arm 1 mL [id number] 09/18/25 97253-879-04 [facility] Comments: Consent form signed. Pt tolerated well and declines any adverse reactions to past injections. Coding Assessment & Plan Assessment & Plan Orders: Orders AMB Denosumab Injection Practice Supplied Today M81.0 - Age-related osteoporosis without current pathological fracture Medications: New Prolia (denosumab) 60 mg subcut ONCE 1 mL 0RF NS M81.0 - Age-related osteoporosis without current pathological fracture
== END 2023-08-10 08:21 | disposition home or self-care (01) ==
PROVIDERS: PCP Internal Medicine; Visit Provider Internal Medicine Endocrinology, Diabetes & Metabolism
DX: M81.0 Age-related osteoporosis without current pathological fracture (principal)

== ENCOUNTER → 2023-08-10 07:33 | Outpatient (BNVA) | payer MEDICARE, OTHER, SELFPAY | PROVIDERS: PCP Internal Medicine; Visit Provider Internal Medicine Endocrinology, Diabetes & Metabolism | DX: M81.0 Age-related osteoporosis without current pathological fracture (principal) | CPT/HCPCS: 96372; J0897 ==

== ENCOUNTER 2023-10-04 06:39 | Outpatient (REF) | payer MEDICARE, OTHER, SELFPAY ==
[2023-10-04 07:38] LABS: Alanine Aminotransferase 17 U/L (0-31); Albumin Level 4.1 g/dL (3.5-5.0); Alkaline Phosphatase 59 U/L (39-117); Anion Gap 12 (12-20); Aspartate Amino Transferase 19 U/L (5-31); Bilirubin Total 0.5 mg/dL (0.0-1.0); Blood Urea Nitrogen 21 mg/dL (9-16); Calcium 9.2 mg/dL (8.4-10.2); Carbon Dioxide 25 mmol/L (22-29); Chloride 109 mmol/L (96-108); Cholesterol 210 mg/dL (<200); Estimated Glomerular Filt Rate > 60; Glucose Fasting 91 mg/dL (60-99); HDL Cholesterol 63 mg/dL (>40); LDL Cholesterol Calculated 140 mg/dL (<100); Potassium 4.1 mmol/L (3.3-5.1); Sodium 142 mmol/L (135-145); Total Protein 6.6 g/dL (6.5-8.0); Triglycerides 39 mg/dL (<150)
[2023-10-04 07:53] LABS: Thyroid Stimulating Hormone 1.86 uIU/mL (0.32-4.0)
== END 2023-10-04 06:40 | disposition home or self-care (01) ==
LOC: HO.LAB 06:39
PROVIDERS: PCP Internal Medicine; Visit Provider Internal Medicine
DX: M81.0 Age-related osteoporosis without current pathological fracture (principal); E78.00 Pure hypercholesterolemia, unspecified; E78.5 Hyperlipidemia, unspecified; E03.9 Hypothyroidism, unspecified
CPT/HCPCS: 36415; 80053; 80061; 84443; 99212

== ENCOUNTER 2023-10-04 08:27 | Outpatient (AMB) | payer MEDICARE, OTHER, SELFPAY ==
[2023-10-04 08:32] VITALS: BP 110/66; PULSE 94; BMI 23.7
--- NOTE | 2023-10-04 08:32 | A.OFFVIS_ITS ---
Vital Signs 10/04/23 08:32 Height 5 ft 7 in Weight 151 lb 3.794 oz BMI 23.7 BP 110/66 Blood Pressure Location Rt brachial Position Sitting Pulse 94 Pulse Source Pulse Oximeter Intake Visit Reasons: f/u Osteoporosis/LVM Intake Note: Patient present today for Osteoporosis follow up visit. 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 First diagnosed in 2015. Received treatment in the past with Fosamax, from 2015 to 04/2020. Tolerated treatment well without complication. This was stopped by Dr. Rivera after she completed 5 years of therapy. She has Osteoporosis of the hip, and Osteopenia of the spine. Her BMD has worsened and she has failed treatment with Fosamax. After our initial visit she underwent a full biochemical evaluation for secondary causes of Osteoporosis, which was WNL. She then was started on Prolia as of 07/31/2021 and has received this q6 months. She is due for her third dose today. She has tolerated this well. No history of pathologic fracture or ONJ. Has 0-1 servings of dietary calcium per day in the form of yogurt. Takes Calcium supplement 1200 mg PO daily in divided doses. Does not take any Vitamin D currently. Denies ever using PPI, anticoagulant, antiepileptic or glucocorticoid medication. Does weight bearing exercise with [place] 4-5 days per week. 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 Menses was always regular. She is . She breastfed for a total of 18 months. Menopause was age 53. Denies a history of Kidney stones: Mother had a history of Osteoporosis. No Family history of hip fracture. UTD on dental cleanings and sees dentist every 6 months. No planned upcoming dental work or extractions. DXA dated 02/28/2021: FINDINGS: AP SPINE L1-L4: Current: BMD 1.035 g/cm2, Z-score 0.3, T-score -1.2, osteopenia, 3.2% increase from previous, 4.9% increase from baseline (<5% change is not significant). Prior: BMD 1.003 g/cm2. Baseline: BMD 0.987 g/cm2. LEFT FEMUR, NECK: Current: BMD 0.689 g/cm2, Z-score -1.0, T-score -2.5, osteoporosis. Prior: BMD 0.681 g/cm2. Baseline: BMD 0.738 g/cm2. LEFT FEMUR, TOTAL: Current: BMD 0.679 g/cm2, Z-score -1.3, T-score -2.6, osteoporosis, 3.3% decrease from previous, 9.2% decrease from baseline (<5% change is not significant). Prior: BMD 0.702 g/cm2. Baseline: BMD 0.748 g/cm2. Labs: Laboratory Tests 08/11/22 11:06 Sodium 145 Potassium 4.9 Creatinine 0.88 Estimated GFR > 60 Phosphorus 3.5 Albumin 4.3 25-OH Vitamin D Total 55.5 TSH 1.52 Free T4 1.13 last Prolia injection was 08/10/2023 [facility] Medical History Right hip pain Pure hypercholesterolemia Constipation by delayed colonic transit Mild major depression, single episode MEHRAN (generalized anxiety disorder) Mass of right hand Dyslipidemia Hip pain Vitamin D deficiency Pelvic pain in female History of breast cancer Osteoporosis Depression with anxiety Hypothyroidism Surgical History History of left hip replacement History of lumpectomy of right breast History of section History of hip replacement Family History Father FH: prostate cancer Mother Stroke Hypertension Osteoporosis Sister COPD (chronic obstructive pulmonary disease) Social History Housing: House Alcohol intake: current Alcohol intake frequency: holidays/special occasions only Alcohol type: wine Patient Tobacco Use Status: Never used Tobacco e-Cigarette/Vaping Use: Never Used Second Hand Smoke Exposure: No Advance Directives Date on File: 10/08/20 service: No Current occupational status: employed Current occupational exposures/hazards: No Cognitive needs: No Hearing needs: No Vision needs: No Physical Exam Vital Signs: Last Vital Signs Pulse 94 10/04/23 08:32 BP 110/66 10/04/23 08:32 BMI result Body Mass Index 23.7 Assessment & Plan Assessment & Plan (1) Osteoporosis: Code(s): M81.0 - Age-related osteoporosis without current pathological fracture Category: Medical Qualifiers: Osteoporosis type: age-related Presence of current pathological fracture: without current pathological fracture Qualified Code(s): M81.0 - Age- related osteoporosis without current pathological fracture Plan: This 73-year-old white female with a history of osteoporosis treated for 5 years with Fosamax and then Prolia for 1 1/2 years. Her DEXA bone density shows borderline osteoporosis in the hip with a T-score -2.7. Patient has not had fracture. Secondary workup is negative. Last Prolia injection was 07/2023 The plan is to talk to the patient about transitioning off Prolia onto either oral alendronate or Reclast in 12/2023. We have decided to transition to alendronate 70 mg Q weekly and check bone turnover marker urine NTX 2 months afterwards. Orders: Orders Collagen Crosslinks NTX 6 Months M81.0 - Age-related osteoporosis without current pathological fracture Medications: New alendronate 70 mg PO QWEEK 5 tabs 6RF Discontinued denosumab (Prolia) Discontinued Reason: Doctor's Order 60 mg subcut [id number] 1 mL 0RF Coding Level of Care Code Est Pt Level 3 (91207) Diagnoses Age-related osteoporosis without current pathological fracture M81.0 Osteoporosis type: age-related Presence of current pathological fracture: without current pathological fracture
== END 2023-10-04 09:11 | disposition home or self-care (01) ==
PROVIDERS: PCP Internal Medicine; Visit Provider Internal Medicine Endocrinology, Diabetes & Metabolism
DX: M81.0 Age-related osteoporosis without current pathological fracture (principal)
CPT/HCPCS: 99213

== ENCOUNTER 2023-10-06 14:46 | Outpatient (AMB) | payer MEDICARE, OTHER, SELFPAY ==
--- NOTE | 2023-10-06 15:10 | MHC.PC.OV ---
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 Accompanied by: Self / Same As Patient Allergies No Known Allergies Allergy (Verified 10/06/23 15:31) Medication List - Last Reconciled 10/06/23 by Brittney Cruz MD alendronate 70 mg PO QWEEK amoxicillin 2,000 mg (4 x 500 mg) PO DAILY 1 day aspirin (Adult Low Dose Aspirin) 81 mg PO DAILY calcium carbonate (Calcium 600) 1,200 mg PO DAILY citalopram 30 mg (1.5 x 20 mg) PO DAILY 90 days levothyroxine 100 mcg PO DAILY 90 days omega 7-aiv-aeu-fish oil 60-90-500 mg (Fish Oil) 1 cap PO DAILY propranolol 20 mg PO BID Tobacco use date assessed: 05/20/22 Dental Screening Dental Screen Date: 01/19/23 HPI HPI Comments History of Present Illness Details This is a 73-year-old female with hypothyroidism, osteoporosis, pure hypercholesterolemia and mild major depression that comes today complaining of mass in right hand that is nontender but is bothering her. This mass has been going on for few months. TSH was normal. Last DEXA scan was 2022 showing osteoporosis and she was on Prolia but pleat patternmaker wants to change her to alendronate that needs to start in January which will be after 6 months of her last Prolia. Depression stable with citalopram. Denies any chest pain or shortness on breath. She does have elevated cholesterol but her [place] risk score is 3.1% therefore no need for statins. [facility] Medical History (Updated 10/06/23 @ 15:38 by Brittney Cruz MD) Right hip pain Pure hypercholesterolemia Constipation by delayed colonic transit Mild major depression, single episode MEHRAN (generalized anxiety disorder) Mass of right hand Dyslipidemia Hip pain Vitamin D deficiency Pelvic pain in female History of breast cancer Osteoporosis Depression with anxiety Hypothyroidism Surgical History History of left hip replacement History of lumpectomy of right breast History of section History of hip replacement Family History Father FH: prostate cancer Mother Stroke Hypertension Osteoporosis Sister COPD (chronic obstructive pulmonary disease) Social History Housing: House Alcohol intake: current Alcohol intake frequency: holidays/special occasions only Alcohol type: wine Patient Tobacco Use Status: Never used Tobacco e-Cigarette/Vaping Use: Never Used Second Hand Smoke Exposure: No Advance Directives Date on File: 10/08/20 service: No Current occupational status: employed Current occupational exposures/hazards: No Cognitive needs: No Hearing needs: No Vision needs: No Questionnaire PHQ-9 Over the last 2 weeks, how often have you been bothered by any of the following problems? 1. Little interest or pleasure in doing things: not at all 2. Feeling down, depressed, or hopeless: not at all 3. Trouble falling or staying asleep, or sleeping too much: not at all 4. Feeling tired or having little energy: not at all 5. Poor appetite or overeating: not at all 6. Feeling bad about yourself - or that you are a failure or have let yourself or your family down: not at all 7. Trouble concentrating on things, such as reading the newspaper or watching television: not at all 8. Moving or speaking so slowly that other people could have noticed. Or the opposite - being so fidgety or restless that you have been moving around a lot more than usual: not at all 9. Thoughts that you would be better off or of hurting yourself in some way: not at all Total score: 0 Depression Screening Interpretation: Negative Depression Screening Done: Yes 05512 - PHQ-9 Billing: Yes Source: Developed by Drs. Sebastian Mejia, Nazanin Whitt, Martin Wilson and colleagues, with an educational raffi from [employer]. Thrive Questionnaire Date Thrive assessed: 10/06/23 I am a: Patient What is your living situation today?: I have a steady place to live Within the past 12 months, did the food you bought not last and you didn't have the money to get more?: Never true Within the past 12 months, did you worry whether your food would run out before you got money to buy more?: Never true Do you have trouble paying for medicines?: No Do you have trouble getting transportation to medical appointments?: No Do you have trouble paying your heating and electricity bill?: No Do you have trouble taking care of your child, family member or friend?: No Do you have trouble with day-to-day activities such as bathing, preparing meals, shopping, managing finances, etc.?: No Are you currently unemployed and looking for a job?: No Are you interested in more education?: No Please select the resources that you would like help with: None Currently or been in a relationship where the following occur: No concerns reported THRIVE Score: 0 AUDIT C Alcohol Use Questionnaire (AUDIT-C) 1. How often do you have a drink containing alcohol?: Monthly or less 2. How many drinks containing alcohol do you have on a typical day when you are drinking?: 1 or 2 3. How often do you have six or more drinks on one occasion?: Never Total Score: 1 MEHRAN-7 AMB Questionnaire MEHRAN-7 Date MEHRAN - 7 assessed: 10/06/23 Feeling nervous, anxious, or on edge: 0 = Not at all Not being able to stop or control worryin = Not at all Worrying too much about different things: 0 = Not at all Trouble relaxin = Not at all Being so restless that it is hard to sit still: 0 = Not at all Becoming easily annoyed or irritable: 0 = Not at all Feeling afraid as if something awful might happen: 0 = Not at all Total MEHRAN-7 score (0-4 normal; 5-9 mild; 10-14 moderate; 15-21 severe): 0 Source: Developed by Drs. Sebastian Mejia, Nazanin Whitt, Martin Wilson and colleagues, with an educational raffi from [employer]. MEHARN-7 Assessment Billing MEHRAN-7 Assessment Tool: MEHRAN-7 Assessment 82911 Review of Systems Const All systems reviewed & are unremarkable except as noted in HPI and below Card Denies chest pain at rest, Denies chest pain with activity, Denies edema, Denies irregular heart rhythm, Denies claudication, Denies dyspnea, Denies dyspnea on exertion, Denies orthopnea, Denies paroxysmal nocturnal dyspnea and Denies slow heart rate Resp Denies cough, Denies dyspnea and Denies dyspnea on exertion GI Denies abdominal pain, Denies change in bowel habits, Denies excessive flatus, Denies nausea and Denies vomiting Physical exam (Primary Care) Vital Signs: Last Vital Signs BP 120/72 10/06/23 15:12 BMI result Body Mass Index 23.3 Tobacco/Smoking Status: Tobacco use Status Tobacco use date assessed 05/20/22 10/06/23 15:17 Patient Tobacco Use Status Never used Tobacco 10/06/23 15:17 e-Cigarette/Vaping Use Never Used 10/06/23 15:17 PHQ-9: PHQ-9 Score PHQ-9: Total score 0 10/06/23 16:10 Depression Screening Interpretation: Negative Thrive Assessment: Date of Thrive Assessment Date Thrive assessed 10/06/23 10/06/23 15:17 Currently or been in a relationship where the following occur: No concerns reported Resp Effort & Inspection: normal respiratory effort Auscultation: clear to auscultation bilaterally Cardio Jugular venous distension: no JVD Rate: regular rate Rhythm: regular rhythm Heart sounds: S1 normal heart sound present and S2 normal heart sound present Extrem General: Yes full ROM Assessment and Plan Assessment & Plan (1) Subcutaneous mass of right hand: Code(s): R22.31 - Localized swelling, mass and lump, right upper limb Plan: Referred to Ortho. (2) Mild major depression, single episode: Code(s): F32.0 - Major depressive disorder, single episode, mild Plan: Continue citalopram. (3) Pure hypercholesterolemia: Code(s): E78.00 - Pure hypercholesterolemia, unspecified Plan: Start low-cholesterol diet. (4) Osteoporosis: Code(s): M81.0 - Age-related osteoporosis without current pathological fracture Qualifiers: Osteoporosis type: age-related Presence of current pathological fracture: without current pathological fracture Qualified Code(s): M81.0 - Age-related osteoporosis without current pathological fracture Plan: Start alendronate in January. DEXA scan to be repeated 2024. (5) Hypothyroidism: Code(s): E03.9 - Hypothyroidism, unspecified Qualifiers: Hypothyroidism type: acquired Qualified Code(s): E03.9 - Hypothyroidism, unspecified Plan: Continue levothyroxine. Orders: Orders Thyroid Stimulating Hormone 6 Months E03.9 - Hypothyroidism, unspecified Comprehensive [place]. Panel Fast 6 Months E78.00 - Pure hypercholesterolemia, unspecified Lipid Panel 6 Months E78.5 - Hyperlipidemia, unspecified Vitamin D 25-OH Total 6 Months E55.9 - Vitamin D deficiency, unspecified Referrals Orthopedics Referral R22.31 - Localized swelling, mass and lump, right upper limb Coding Level of Care Code Est Pt Level 4 (35873) Complex EM visit Add On G2211 Diagnoses Subcutaneous mass of right hand R22.31 Mild major depression, single episode F32.0 Pure hypercholesterolemia E78.00 Age-related osteoporosis without current pathological fracture M81.0 Osteoporosis type: age-related Presence of current pathological fracture: without current pathological fracture Acquired hypothyroidism E03.9 Hypothyroidism type: acquired Additional Codes MEHRAN-7 Assessment Billing - MEHRAN-7 Assessment Tool: MEHRAN-7 Assessment 38969 ([id number]) Time Spent (min) 23
[2023-10-06 15:12] VITALS: BP 120/72; BMI 23.3
== END 2023-10-06 15:42 | disposition home or self-care (01) ==
PROVIDERS: PCP Internal Medicine; Visit Provider Internal Medicine
DX: R22.31 Localized swelling, mass and lump, right upper limb (principal); F32.0 Major depressive disorder, single episode, mild; E78.00 Pure hypercholesterolemia, unspecified; M81.0 Age-related osteoporosis without current pathological fracture; E03.9 Hypothyroidism, unspecified
CPT/HCPCS: 99214; G2211

== ENCOUNTER 2023-11-10 07:53 | Outpatient (AMB) | payer MEDICARE, OTHER, SELFPAY ==
--- NOTE | 2023-11-10 08:11 | A.OFFVIS_ITS ---
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 Patient denies numbness and tingling. Denies locking of finger. Patient states there is no pain but mainly stiffness affecting most fingers. Denies any prior injuries or surgeries. Allergies No Known Allergies Allergy (Verified 11/10/23 08:16) HPI HPI MACHINE PACKAGING TECHNICIAN-Right hand swelling, no known injury: Details: Jenelle is a 73 year old right hand dominant woman who presents with complaints of right hand stiffness She complains of stiffness in the fingers of her right hand. She also complains of a feeling of tightness in her palm. She has a mass in her palm for several years now. She denies any stiffness or tightness in her left hand. She denies any falls or known injury. She denies any numbness or tingling. She denies any locking or catching. She is planning to have Cataract surgery in December. She works as a therapist. [facility] Medical History Right hip pain Pure hypercholesterolemia Constipation by delayed colonic transit Mild major depression, single episode MEHRAN (generalized anxiety disorder) Mass of right hand Dyslipidemia Hip pain Vitamin D deficiency Pelvic pain in female History of breast cancer Osteoporosis Depression with anxiety Hypothyroidism Surgical History History of left hip replacement History of lumpectomy of right breast History of section History of hip replacement Family History Father FH: prostate cancer Mother Stroke Hypertension Osteoporosis Sister COPD (chronic obstructive pulmonary disease) Social History (Updated 11/10/23 @ 08:48 by GIOVANY Daniels) Housing: House Alcohol intake: current Alcohol intake frequency: holidays/special occasions only Alcohol type: wine Patient Tobacco Use Status: Never used Tobacco e-Cigarette/Vaping Use: Never Used Second Hand Smoke Exposure: No Advance Directives Date on File: 10/08/20 service: No Current occupational status: employed Current occupation: rt handed Current occupational exposures/hazards: No Cognitive needs: No Hearing needs: No Vision needs: No Review of Systems Const All systems reviewed & are unremarkable except as noted in HPI and below Physical Exam Vital Signs: BMI result Body Mass Index 23.3 Const General: cooperative, healthy appearing and no acute distress Orientation/consciousness: patient oriented x3 HEENT Head: Yes normocephalic and Yes atraumatic Eyes EOM: EOMs intact bilaterally Resp Effort & Inspection: normal respiratory effort and able to speak in complete sentences Cardio Jugular venous distension: no JVD Skin General skin exam: turgor normal Rashes: no rashes Neuro General: patient oriented x3 Extrem Other: Evaluation of Right Upper Extremity: The patient is alert, oriented, and in no acute distress Neuro: Median, Ulnar, Radial nerves motor and sensory intact and sensation is normal to the tips of all digits Vascular: Cap refill brisk ROM: She can bring her fingers closed to a fist No locking or catching She can fully extend her thumb, ring, and small fingers She is unable to place her hand flat on the table There is a Dupuytrens cord extending from the mid-palm into the 2nd webspace, with a cord extending into both the index & middle fingers Index & middle finger: MCP 20/PIP 0 Skin: No lacerations or abrasions. General: No Ecchymosis. No Erythema or evidence of infection. Radiographs: 3 views of the right hand were taken and viewed by me today in clinic. They show no fractures or dislocations. There is some Basal joint osteoarthritis and mild general arthritic changes. Psych Appearance: grossly normal Affect: normal affect Attitude: cooperative Assessment & Plan Assessment & Plan (1) Dupuytren's contracture of right hand: Comment: IF & MF Code(s): 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 Right Index finger Dupuytrens contracture MCP 20/PIP 0 2. Right middle finger Dupuytrens contracture MCP 20/PIP 0 With a cord extending from the mid-palm into the 2nd webspace I educated her about this condition I discussed operative and non-operative treatment options The patient would like to proceed with surgery. She has Cataract surgery scheduled for December, and would like to have this scheduled for no sooner than January I directed her to the [email or web address] website for more information The risks and benefits of operative treatment were discussed with the patient and the patient wishes to proceed with surgery. These risks include, but are not limited to risk of damage to blood vessels, nerves, tendons, infection, recurrence, incomplete relief of preoperative symptoms, persistent pain, possible need for further surgery and the risks associated with regional blocks and anesthesia. This may be able to be performed under local instead of general, but we will re- evaluate on DOS The plan is to take the patient to the operating room sometime in the next few weeks for the following procedures: 1. Right index finger partial dupuytrens fasciectomy, under general 2. Right middle finger partial dupuytrens fasciectomy, under general All of the preoperative paperwork including the consent was reviewed today. All the patient's questions were answered. The patient understands that they will be contacted by our stenotype machine operator soon to schedule this procedure She denies Diabetes, blood thinners, asthma, heart, lung, kidney issues Scribed for Marian Hall MD by Aman Curtis, medical staff manager, on 11/10/23 at 8:45 AM, EST. Orders: Orders XR hand RT min 3V Today M79.641 - Pain in right hand Coding Level of Care Code New Pt Level 4 (38145) Diagnoses Dupuytren's contracture of right hand M72.0
[2023-11-10 08:15] VITALS: BMI 23.3
== END 2023-11-10 09:08 | disposition home or self-care (01) ==
PROVIDERS: PCP Internal Medicine; Visit Provider Orthopaedic Surgery
DX: M72.0 Palmar fascial fibromatosis [Dupuytren] (principal)
CPT/HCPCS: 99204

== ENCOUNTER 2023-11-10 13:38 | Outpatient (REF) | payer MEDICARE, OTHER, SELFPAY ==
--- NOTE | ~2023-11-10 | XR_ITS ---
EXAMINATION: XR HAND, RIGHT CLINICAL INFORMATION: Pain. COMPARISON: None available. TECHNIQUE: PA, lateral, and oblique views of the right hand. FINDINGS: There is mild bony demineralization. There is mild arthritic change of the second through fourth distal interphalangeal joints and of the third through fifth proximal interphalangeal joints. Marginal erosions are noted of the third proximal and distal interphalangeal joints and of the second metacarpophalangeal joint. There is moderate arthritic change of the first carpometacarpal joint. The proximal and distal carpal rows are intact. There is no focal soft tissue swelling, gas or foreign body. XR/XR hand RT min 3V IMPRESSION: There are multi-focal arthritic changes of the right hand and wrist. The presence of marginal erosions of the third distal interphalangeal joint and of the second metacarpophalangeal joint raise the possibility of erosive osteoarthritis, psoriasis, Juana's syndrome, gout or rheumatoid arthritis. Please correlate clinically. No fracture or dislocation is seen. Electronically signed by: Cl Velez MD 12/02/2023 11:23 PM EDT
== END 2023-11-10 13:39 | disposition home or self-care (01) ==
LOC: HO.HOSX 13:38
PROVIDERS: Visit Provider Orthopaedic Surgery
DX: M79.641 Pain in right hand (principal); M72.0 Palmar fascial fibromatosis [Dupuytren]
CPT/HCPCS: 73130; 99202

== ENCOUNTER 2023-12-21 09:23 | Outpatient (AMB) | payer MEDICARE, OTHER, SELFPAY ==
[2023-12-21 09:44] VITALS: BP 120/76; PULSE 71; O2SAT 97; BMI 23.3
--- NOTE | 2023-12-21 09:44 | A.OFFPC_ITS ---
Vital Signs 12/21/23 09:44 Height 5 ft 7 in Weight 149 lb BMI 23.3 BP 120/76 Blood Pressure Location Lt brachial Position Sitting Pulse 71 Pulse Source Pulse Oximeter Pulse Oximetry (%) 97 Oxygen Delivery Method Room Air Intake Visit Reasons: preop surgery [facility] Flight Dispatcher Required: No Accompanied by: Self / Same As Patient Allergies No Known Allergies Allergy (Verified 12/21/23 09:55) Medication List - Last Reconciled 12/21/23 by William Hanna PA-C aspirin (Adult Low Dose Aspirin) 81 mg PO DAILY calcium carbonate (Calcium 600) 1,200 mg (2 x 600 mg calcium (1,500 mg)) PO DAILY 90 days citalopram 30 mg (1.5 x 20 mg) PO DAILY 90 days levothyroxine 100 mcg PO DAILY 90 days omega 5-xrn-fsc-fish oil 60-90-500 mg (Fish Oil) 1 cap PO DAILY propranolol 20 mg PO BID Tobacco use date assessed: 12/21/23 Fall risk assessment: No Falls in past year Last assessed Fall Risk: 12/21/23 Dental Screening Dental Screen Date: 12/21/23 Did you have a dental visit in the last 12 months?: Yes Did you have a dental problem in the last 6 months where you did not have access to dental care?: No Was dental information given to patient?: Patient has dentist HPI preop surgery [facility] HPI Details Patient is a 73-year-old female here today for preop visit. Patient has a past medical history significant for hyperlipidemia, anxiety, hypothyroidism. Patient has no past history of CVA, Congestive heart failure or NM. Patient is not on any anticoagulation therapy at this time. Does take aspirin .. Hypothyroidism: Patient continues on levothyroxine 100 mcg daily, most recent TSH has been stable. .. Hyperlipidemia: Most recent lipid panel showing borderline high total cholesterol and LDL. 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 She continues to be very physically active and watches her diet very closely. Laboratory Tests 10/04/23 06:48 Creatinine 0.86 LDL Cholesterol, C alc 140 H TSH 1.86 [facility] Medical History Right hip pain Pure hypercholesterolemia Constipation by delayed colonic transit Mild major depression, single episode MEHRAN (generalized anxiety disorder) Mass of right hand Dyslipidemia Hip pain Vitamin D deficiency Pelvic pain in female History of breast cancer Osteoporosis Depression with anxiety Hypothyroidism Surgical History History of left hip replacement History of lumpectomy of right breast History of section History of hip replacement Family History Father FH: prostate cancer Mother Stroke Hypertension Osteoporosis Sister COPD (chronic obstructive pulmonary disease) Social History Housing: House Alcohol intake: current Alcohol intake frequency: holidays/special occasions only Alcohol type: wine Patient Tobacco Use Status: Never used Tobacco e-Cigarette/Vaping Use: Never Used Second Hand Smoke Exposure: No Advance Directives Date on File: 10/08/20 service: No Current occupational status: employed Current occupation: rt handed Current occupational exposures/hazards: No Cognitive needs: No Hearing needs: No Vision needs: Yes Questionnaire Thrive Questionnaire Date Thrive assessed: 10/06/23 Are you currently unemployed and looking for a job?: No MEHRAN-7 AMB Questionnaire MEHRAN-7 Date MEHRAN - 7 assessed: 10/06/23 Source: Developed by Drs. Sebastian Mejia, Nazanin Whitt, Martin Wilson and colleagues, with an educational raffi from [employer]. Review of Systems Const Denies headache(s) Eyes Denies loss of vision ENT Denies vertigo, Denies dizziness, Denies headache(s) and Denies sore throat Card Denies chest pain, Denies leg edema and Denies lightheadedness Resp Denies cough, Denies hemoptysis and Denies wheezing GI Denies abdominal pain, Denies melena, Denies constipation, Denies diarrhea and Denies vomiting Denies urinary frequency, Denies dysuria and Denies urinary urgency Musc Denies arthralgias, Denies joint swelling, Denies numbness and Denies tingling Neuro Denies Abnormal speech present, Denies behavioral changes, Denies vertigo, Denies dizziness, Denies headache(s), Denies loss of vision, Denies memory loss, Denies numbness and Denies tingling Psych Denies anxiety, Denies behavioral changes, Denies depression, Denies memory loss and Denies panic attacks Natan/Lymph Denies easy bleeding and Denies easy bruising Aller/Immun Denies wheezing Physical exam (Primary Care) Vital Signs: Last Vital Signs Pulse 71 12/21/23 09:44 BP 120/76 12/21/23 09:44 Pulse Ox 97 12/21/23 09:44 Oxygen Delivery Method Room Air 12/21/23 09:44 BMI result Body Mass Index 23.3 Tobacco/Smoking Status: Tobacco use Status Tobacco use date assessed 12/21/23 12/21/23 09:49 Patient Tobacco Use Status Never used Tobacco 12/21/23 09:49 e-Cigarette/Vaping Use Never Used 12/21/23 09:49 Thrive Assessment: Date of Thrive Assessment Date Thrive assessed 10/06/23 12/21/23 09:49 Const General: healthy appearing, no acute distress, alert and awake Nutritional Appearance: well nourished Orientation/consciousness: oriented to person, oriented to place and oriented to time HENMT Ears: TM's normal bilaterally General nose exam: Normal nasal mucous membranes and turbinates present Eyes Conjunctivae: conjunctivae normal Sclerae: sclerae normal Pupils: Equal, round and reactive pupils present Neck Neck: Yes no lymphadenopathy and Yes no JVD Thyroid: Thyroid normal Carotids: no bruits Resp Effort & Inspection: normal respiratory effort and not tachypneic Auscultation: no crackles, no rales, no rhonchi and no wheezes Cardio Rate: regular rate Rhythm: regular rhythm Heart sounds: no murmurs and normal S1 and S2 GI Palpation (GI): Soft to palpation, nontender, no hepatomegaly and no splenomegal y Auscultation: normal bowel sounds Skin General skin exam: no rashes or lesions noted and dry skin Neuro General: oriented to person, oriented to place and oriented to time Cranial nerves: Yes Equal, round and reactive pupils present Speech: No Abnormal speech present Gait exam (Neuro): Normal gait present Motor exam (neuro): no tremor noted Extrem Right upper extremity: full ROM Left upper extremity: full ROM Right lower extremity: full ROM; no edema Left lower extremity: full ROM; no edema Psych Mental Status: mental status grossly normal Speech and movement: Normal speech and movement present Affect: normal affect Attitude: cooperative Thought process: Normal thought process present Office Procedures Flu Questionnaire Does the patient have a severe egg allergy?: No Immunizations Fluarix Triv [id number] (PF) 45 mcg (15 mcg x 3)/0.5 mL IM syringe Performing Provider: William Hanna PA-C [facility] Documented (not given) by: GIOVANY Melendez on 12/21/23 09:52 Reason Not Given: Patient Refused Coding Level of Care Code Est Pt Level 3 (07954) Diagnoses Pre-op evaluation Z01.818 Age-related cataract of both eyes, unspecified age-related cataract type H25.9 Cataract type: age-related Age-related cataract type: unspecified Laterality: bilateral Assessment & Plan Assessment & Plan (1) Pre-op evaluation: Code(s): Z01.818 - Encounter for other preprocedural examination Category: Medical Plan: Patient's most recent labs and vitals stable today in office. Has no history of cardiovascular disease. Patient medically clear for needed cataract removal procedure. (2) Cataract: Code(s): H26.9 - Unspecified cataract Category: Medical Qualifiers: Cataract type: age-related Age-related cataract type: unspecified Laterality: bilateral Qualified Code(s): H25.9 - Unspecified age-related cataract Plan: As above Orders: Orders Influenza [id number] Immunization Today Z23 - Encounter for immunization
== END 2023-12-21 10:10 | disposition home or self-care (01) ==
PROVIDERS: PCP Internal Medicine; Visit Provider Physician Assistant
DX: Z01.818 Encounter for other preprocedural examination (principal); H25.9 Unspecified age-related cataract; Z23 Encounter for immunization

== ENCOUNTER → 2023-12-21 09:23 | Outpatient (BNVA) | payer MEDICARE, OTHER, SELFPAY | PROVIDERS: PCP Internal Medicine; Visit Provider Physician Assistant | DX: Z01.818 Encounter for other preprocedural examination (principal); Z23 Encounter for immunization; H26.9 Unspecified cataract | CPT/HCPCS: 90471; 99212 ==

== ENCOUNTER 2023-12-27 10:00 | Day surgery (SDC) | payer MEDICARE, OTHER, SELFPAY ==
[2023-12-22 06:52] VITALS: BMI 23.3
[2023-12-22 06:53] VITALS: BMI 23.3
--- NOTE | 2023-12-23 15:09 | HO.ANESPROP2 ---
Documented by User: Suzie Burrell NP 12/23/23 15:10 HPI - Anesthesia Eval Consult details Narrative: 73yo F for Right Cataract Extraction IOL Insertion No previous cataract on record PMFSH Active Problems Active Problems: All Active Problems Cataract (Acute) Pre-op evaluation (Acute) Dupuytren's contracture of right hand (Acute) Subcutaneous mass of right hand (Acute) Physical exam (Acute) Right hip pain (Acute) Pure hypercholesterolemia (Acute) Constipation by delayed colonic transit (Acute) Mild major depression, single episode (Acute) MEHRAN (generalized anxiety disorder) (Acute) Mass of right hand (Acute) Hip pain (Acute) Vitamin D deficiency (Acute) Pelvic pain in female (Acute) Strain of left inguinal muscle (Acute) Osteoporosis (Acute) Hypothyroidism (Acute) Past Medical History Medical History Right hip pain Pure hypercholesterolemia Constipation by delayed colonic transit Mild major depression, single episode MEHRAN (generalized anxiety disorder) Mass of right hand Dyslipidemia Hip pain Vitamin D deficiency Pelvic pain in female History of breast cancer Osteoporosis Depression with anxiety Hypothyroidism Family History Family History Father FH: prostate cancer Mother Stroke Hypertension Osteoporosis Sister COPD (chronic obstructive pulmonary disease) Surgical History Surgical History History of left hip replacement History of lumpectomy of right breast History of section History of hip replacement Social History Social History Housing: House Alcohol intake: current Alcohol intake frequency: holidays/special occasions only Alcohol type: wine Patient Tobacco Use Status: Never used Tobacco e-Cigarette/Vaping Use: Never Used Second Hand Smoke Exposure: No Use of substances other than those prescribed or required for medical reasons: No Advance Directives: Yes Advance Directives Information Provided: No Advance Directives on File: Yes Advance Directives Date on File: 10/08/20 Recently lost weight without trying: No Nutrition Risks: No Nutritional Risk Patient : No : No service: No Current occupational status: employed Current occupation: rt handed Current occupational exposures/hazards: No Cognitive needs: No Hearing needs: No Vision needs: Yes Meds Allergies Allergy/AdvReac Type Severity Reaction Status Date / Time No Known Allergies Allergy Verified 12/27/23 10:55 Home Medications ?Medication ?Instructions ?Recorded ?Confirmed ?Last Taken ?Type aspirin 81 mg tablet,delayed 81 mg PO DAILY 01/04/20 12/27/23 09/24/20 History release (Adult Low Dose Aspirin) omega 3-apf-woh-fish oil 60 mg-90 1 cap PO DAILY 06/19/21 12/27/23 Unknown History mg-500 mg capsule (Fish Oil) Exam Height,Weight and Vital Signs: Height 5 ft 7 in Weight 67.585 kg Assessment and Plan Assessment Anesthesia Assessment: Chart Reviewed Documented by User: Mabel Calhoun MD 12/27/23 11:34 PMFSH Past Medical History Medical History Right hip pain Pure hypercholesterolemia Constipation by delayed colonic transit Mild major depression, single episode MEHRAN (generalized anxiety disorder) Mass of right hand Dyslipidemia Hip pain Vitamin D deficiency Pelvic pain in female History of breast cancer Osteoporosis Depression with anxiety Hypothyroidism Family History Family History Father FH: prostate cancer Mother Stroke Hypertension Osteoporosis Sister COPD (chronic obstructive pulmonary disease) Family history of problems with anesthesia: No Surgical History Surgical History History of left hip replacement History of lumpectomy of right breast History of section History of hip replacement History of Problems with Anesthesia: No Social History Social History Housing: House Alcohol intake: current Alcohol intake frequency: holidays/special occasions only Alcohol type: wine Patient Tobacco Use Status: Never used Tobacco e-Cigarette/Vaping Use: Never Used Second Hand Smoke Exposure: No Use of substances other than those prescribed or required for medical reasons: No Advance Directives: Yes Advance Directives Information Provided: No Advance Directives on File: Yes Advance Directives Date on File: 10/08/20 Recently lost weight without trying: No Nutrition Risks: No Nutritional Risk Patient : No : No service: No Current occupational status: employed Current occupation: rt handed Current occupational exposures/hazards: No Cognitive needs: No Hearing needs: No Vision needs: Yes Meds Allergies Allergy/AdvReac Type Severity Reaction Status Date / Time No Known Allergies Allergy Verified 12/27/23 10:55 Home Medications ?Medication ?Instructions ?Recorded ?Confirmed ?Last Taken ?Type aspirin 81 mg tablet,delayed 81 mg PO DAILY 01/04/20 12/27/23 09/24/20 History release (Adult Low Dose Aspirin) omega 4-xhk-zhs-fish oil 60 mg-90 1 cap PO DAILY 06/19/21 12/27/23 Unknown History mg-500 mg capsule (Fish Oil) Exam Airway Mallampati Class: II TM Dist: >3cm Neck ROM: Full Heart: rrr Lungs: cta Assessment and Plan Assessment Anesthesia Assessment: Anesthesia Plan Discussed Final Anesthetic Review Family History of Problems with Anesthesia: No History of Problems with Anesthesia: No NPO: Yes ASA Class: II Final Preanesthetic Review: No Changes in Pt Med Stat, Meds/Allgs Chart Reviewed, Consent Obtained/Reviewed and Anes Risks/Benef Reviewed Patient Risk: Low Procedure Risk: Low Anesthetic Plan Anesthetic Plan: MAC: Disposition: Standard PACU
[2023-12-27 10:57] VITALS: BP 142/73; PULSE 68; RESP 16; TEMP 36.2; O2SAT 99; BMI 23.4
[2023-12-27] MEDS: Tetracaine HCl/PF 0.5% Oph Sol 4 ML DROPS 1 DROP EYE-RIGHT (11:00)
[2023-12-27] MEDS: Cyclopentolate 1 % Ophth Sol 2 ML DRPBTL 1 DROP EYE-RIGHT ×3 (11:01→11:17)
[2023-12-27] MEDS: Lactated Ringers 500 ML 50 ML IV (11:03)
[2023-12-27] MEDS: Tropicamide 1 % Ophth Sol 3 ML BTL 1 DROP EYE-RIGHT ×3 (11:03→11:19)
[2023-12-27] MEDS: Ketorolac Tromethamine 0.5% Op 10 ML DROPS 1 DROP EYE-RIGHT ×3 (11:05→11:21)
[2023-12-27] MEDS: Phenylephrine HCL 2.5% Oph SoL 2 ML BOTTLE 1 DROP EYE-RIGHT ×3 (11:07→11:23)
--- NOTE | 2023-12-27 12:41 | P.PCNO_ITS ---
Ophthalmology Procedure Procedure Date of Service: 12/27/23 Ophthalmology Viscoelastic: Healon Duet Dual Pack Pro Ophthalmology Lenses: IOL Acrysof MP - [id number] (18) Procedure Notes: PREOPERATIVE DIAGNOSIS: Decreased visual acuity right eye secondary to cataract POSTOPERATIVE DIAGNOSIS: Same PROCEDURE: Right cataract extraction with intraocular lens insertion SURGEON: Nilton Crum M.D. ANESTHESIA: Topical/MAC ESTIMATED BLOOD LOSS: None COMPLICATIONS: None After obtaining informed consent, the patient was brought to the operating room suite and placed in the supine position. After adequate sedation per anesthesia, topical drops of Tetracaine were given to the right eye. The eye was then prepped and draped in the usual sterile fashion. The operating room microscope was then positioned over the operative eye and a lid speculum placed. A paracentesis was created. Viscoelastic was then instilled into the anterior chamber. A three plane incision was then created temporally, utilizing a 2.85 mm keratome. Capsulotomy forceps were then utilized to create a circular tear capsulotomy. Hydrodissection and hydrodelineation were carried out until adequate mobilization of the nucleus occurred. Phacoemulsification was then utilized to remove the dense central nucl eus followed by removal of the cortical material utilizing the automated aspiration irrigation unit. Viscoelastic was instilled into the posterior capsular bag followed by placement of a posterior chamber intraocular lens without difficulty. The residual Viscoelastic was then removed utilizing the automated IA machine. The wound was checked and found to be watertight. The patient tolerated the procedure well and the lid speculum was removed. Intracameral injection of Vigamox 0.1 mL followed by a subtenon injection of Kenalog-40 0.2 mL were administered. The patient will be seen in the a.m.
--- NOTE | 2023-12-27 12:41 | MHC.SHP ---
Pre-Procedural Eval Section A - 24 Hr Update-Section A only Date of Service: 12/27/23 The patient is an INPATIENT: No Changes since office visit: No Cold of Flu in the past 2 weeks, No New Medical Problems, No Changes in Medication and No Patient answered all questions The patient has been examined within 24 hours of the surgical procedure. The History & Physical has been completed within 30 days and I have reviewed it.: Yes Section B - Complete if H&P > 30 days Chief Complaint: Age-related nuclear cataract, right eye Allergies: Allergies Allergy/AdvReac Type Severity Reaction Status Date / Time No Known Allergies Allergy Verified 12/27/23 10:55 Plan Diagnosis/Plan: Unchanged I have reviewed the history and physical and performed a pertinent physical examination on my patient. No changes have occurred unless specified. Time Spent With Patient Time: Total time managing care of this patient today ____ minutes.
[2023-12-27 13:12] VITALS: BP 120/97; PULSE 70; RESP 16; TEMP 36.1; O2SAT 97
== END 2023-12-27 13:20 | disposition home or self-care (01) ==
PROVIDERS: PCP Internal Medicine; Visit Provider Ophthalmology
PROC: (CPT 66985; principal; 2023-12-27 12:30)
DX: H25.11 Age-related nuclear cataract, right eye (principal); H54.7 Unspecified visual loss; E03.9 Hypothyroidism, unspecified; E78.00 Pure hypercholesterolemia, unspecified; M81.0 Age-related osteoporosis without current pathological fracture; F41.1 Generalized anxiety disorder; Z85.3 Personal history of malignant neoplasm of breast; Z79.82 Long term (current) use of aspirin; Z79.899 Other long term (current) drug therapy; Z98.890 Other specified postprocedural states
CPT/HCPCS: 66984; J2250; J3301; V2630

== ENCOUNTER 2024-01-10 08:38 | Day surgery (SDC) | payer MEDICARE, OTHER, SELFPAY ==
[2023-12-22 06:57] VITALS: BMI 23.3
--- NOTE | 2024-01-06 14:07 | P.CONAN_ITS ---
Documented by User: Suzie Burrell NP 01/06/24 14:08 HPI - Anesthesia Eval Consult details Narrative: 73yo F for Left Cataract Extraction IOL Insertion Right eye 12/27/23: Midaz 2 PMFSH Active Problems Active Problems: All Active Problems Cataract (Acute) Pre-op evaluation (Acute) Dupuytren's contracture of right hand (Acute) Subcutaneous mass of right hand (Acute) Physical exam (Acute) Right hip pain (Acute) Pure hypercholesterolemia (Acute) Constipation by delayed colonic transit (Acute) Mild major depression, single episode (Acute) MEHRAN (generalized anxiety disorder) (Acute) Mass of right hand (Acute) Hip pain (Acute) Vitamin D deficiency (Acute) Pelvic pain in female (Acute) Strain of left inguinal muscle (Acute) Osteoporosis (Acute) Hypothyroidism (Acute) Past Medical History Medical History Right hip pain Pure hypercholesterolemia Constipation by delayed colonic transit Mild major depression, single episode MEHRAN (generalized anxiety disorder) Mass of right hand Dyslipidemia Hip pain Vitamin D deficiency Pelvic pain in female History of breast cancer Osteoporosis Depression with anxiety Hypothyroidism Family History Family History Father FH: prostate cancer Mother Stroke Hypertension Osteoporosis Sister COPD (chronic obstructive pulmonary disease) Family history of problems with anesthesia: No Surgical History Surgical History History of left hip replacement History of lumpectomy of right breast History of section History of hip replacement History of Problems with Anesthesia: No Social History Social History Housing: House Alcohol intake: current Alcohol intake frequency: holidays/special occasions only Alcohol type: wine Patient Tobacco Use Status: Never used Tobacco e-Cigarette/Vaping Use: Never Used Second Hand Smoke Exposure: No Use of substances other than those prescribed or required for medical reasons: No Advance Directives: Yes Advance Directives Information Provided: No Advance Directives on File: Yes Advance Directives Date on File: 10/08/20 Recently lost weight without trying: No Nutrition Risks: No Nutritional Risk Patient : No : No service: No Current occupational status: employed Current occupation: rt handed Current occupational exposures/hazards: No Cognitive needs: No Hearing needs: No Vision needs: Yes Meds Allergies Allergy/AdvReac Type Severity Reaction Status Date / Time No Known Allergies Allergy Verified 12/27/23 10:55 Home Medications ?Medication ?Instructions ?Recorded ?Confirmed ?Last Taken ?Type aspirin 81 mg tablet,delayed 81 mg PO DAILY 01/04/20 12/27/23 09/24/20 History release (Adult Low Dose Aspirin) omega 9-cka-kya-fish oil 60 mg-90 1 cap PO DAILY 06/19/21 12/27/23 Unknown History mg-500 mg capsule (Fish Oil) propranolol 20 mg tablet 20 mg PO BID PRN Anxiety 01/10/24 12/22/23 Unknown History Exam Height,Weight and Vital Signs: Height 5 ft 7 in Weight 67.585 kg Assessment and Plan Assessment Anesthesia Assessment: Chart Reviewed Final Anesthetic Review Family History of Problems with Anesthesia: No History of Problems with Anesthesia: No Documented by User: Mabel Calhoun MD 01/10/24 10:00 [facility] Past Medical History Medical History Right hip pain Pure hypercholesterolemia Constipation by delayed colonic transit Mild major depression, single episode MEHRAN (generalized anxiety disorder) Mass of right hand Dyslipidemia Hip pain Vitamin D deficiency Pelvic pain in female History of breast cancer Osteoporosis Depression with anxiety Hypothyroidism Family History Family History Father FH: prostate cancer Mother Stroke Hypertension Osteoporosis Sister COPD (chronic obstructive pulmonary disease) Surgical History Surgical History History of left hip replacement History of lumpectomy of right breast History of section History of hip replacement Social History Social History Housing: House Alcohol intake: current Alcohol intake frequency: holidays/special occasions only Alcohol type: wine Patient Tobacco Use Status: Never used Tobacco e-Cigarette/Vaping Use: Never Used Second Hand Smoke Exposure: No Use of substances other than those prescribed or required for medical reasons: No Advance Directives: Yes Advance Directives Information Provided: No Advance Directives on File: Yes Advance Directives Date on File: 10/08/20 Recently lost weight without trying: No Nutrition Risks: No Nutritional Risk Patient : No : No service: No Current occupational status: employed Current occupation: rt handed Current occupational exposures/hazards: No Cognitive needs: No Hearing needs: No Vision needs: Yes Meds Allergies Allergy/AdvReac Type Severity Reaction Status Date / Time No Known Allergies Allergy Verified 12/27/23 10:55 Home Medications ?Medication ?Instructions ?Recorded ?Confirmed ?Last Taken ?Type aspirin 81 mg tablet,delayed 81 mg PO DAILY 01/04/20 12/27/23 09/24/20 History release (Adult Low Dose Aspirin) omega 0-yed-vom-fish oil 60 mg-90 1 cap PO DAILY 06/19/21 12/27/23 Unknown History mg-500 mg capsule (Fish Oil) propranolol 20 mg tablet 20 mg PO BID PRN Anxiety 01/10/24 12/22/23 Unknown History Exam Airway Mallampati Class: II TM Dist: >3cm Neck ROM: Full Heart: rrr Lungs: cta Assessment and Plan Assessment Anesthesia Assessment: Anesthesia Plan Discussed Final Anesthetic Review NPO: Yes ASA Class: II Final Preanesthetic Review: No Changes in Pt Med Stat, Meds/Allgs Chart Reviewed, Consent Obtained/Reviewed and Anes Risks/Benef Reviewed Patient Risk: Low Procedure Risk: Low Anesthetic Plan Anesthetic Plan: MAC: Disposition: Standard PACU
[2024-01-10 09:33] VITALS: BMI 22.9
[2024-01-10] MEDS: Tetracaine HCl/PF 0.5% Oph Sol 4 ML DROPS 1 DROP EYE-LEFT (09:51)
[2024-01-10] MEDS: Cyclopentolate 1 % Ophth Sol 2 ML DRPBTL 1 DROP EYE-LEFT ×3 (09:57→10:22)
[2024-01-10] MEDS: Ketorolac Tromethamine 0.5% Op 10 ML DROPS 1 DROP EYE-LEFT ×3 (09:59→10:25)
[2024-01-10] MEDS: Tropicamide 1 % Ophth Sol 3 ML BTL 1 DROP EYE-LEFT ×3 (10:09→10:26)
[2024-01-10] MEDS: Phenylephrine HCL 2.5% Oph SoL 2 ML BOTTLE 1 DROP EYE-LEFT ×3 (10:09→10:28)
[2024-01-10] MEDS: Lactated Ringers 500 ML 50 ML IV (10:11)
[2024-01-10 10:12] VITALS: BP 121/66; PULSE 62; RESP 16; TEMP 37.1; O2SAT 98
--- NOTE | 2024-01-10 10:57 | MHC.SHP ---
Pre-Procedural Eval Section A - 24 Hr Update-Section A only Date of Service: 01/10/24 The patient is an INPATIENT: No Changes since office visit: No Cold of Flu in the past 2 weeks, No New Medical Problems, No Changes in Medication and No Patient answered all questions The patient has been examined within 24 hours of the surgical procedure. The History & Physical has been completed within 30 days and I have reviewed it.: Yes Section B - Complete if H&P > 30 days Chief Complaint: Age-related nuclear cataract, left eye Allergies: Allergies Allergy/AdvReac Type Severity Reaction Status Date / Time No Known Allergies Allergy Verified 12/27/23 10:55 Plan Diagnosis/Plan: Unchanged I have reviewed the history and physical and performed a pertinent physical examination on my patient. No changes have occurred unless specified. Time Spent With Patient Time: Total time managing care of this patient today ____ minutes.
--- NOTE | 2024-01-10 10:58 | HO.PNOPHT ---
Ophthalmology Procedure Procedure Date of Service: 01/10/24 Ophthalmology Viscoelastic: Healon Duet Dual Pack Pro Ophthalmology Lenses: IOL Acrysof MP - [id number] (19) Procedure Notes: PREOPERATIVE DIAGNOSIS: Decreased visual acuity left eye secondary to cataract POSTOPERATIVE DIAGNOSIS: Same PROCEDURE: Left cataract extraction with intraocular lens insertion SURGEON: Nilton Crum M.D. ANESTHESIA: Topical/MAC ESTIMATED BLOOD LOSS: None COMPLICATIONS: None After obtaining informed consent, the patient was brought to the operation room suite and placed in the supine position. After adequate sedation per anesthesia, topical drops of Tetracaine were given to the left eye. The eye was then prepped and draped in the usual sterile fashion. The operating room microscope was then positioned over the operative eye and a lid speculum placed. A paracentesis was created. Viscoelastic was then instilled into the anterior chamber. A three plane incision was then created temporally, utilizing a 2.85 mm keratome. Capsulotomy forceps were then utilized to create a circular tear capsulotomy. Hydrodissection and hydrodelineation were carried out until adequate mobilization of the nucleus occurred. Phacoemulsification was then utilized to remove the dense central nucleus followed by removal of the cortical material utilizing the automated aspiration irrigation unit. Viscoat elastic was instilled into the posterior capsular bag followed by placement of a posterior chamber intraocular lens without difficulty. The residual Viscoat elastic was then removed utilizing the automated IA machine. The wound was check and found to be watertight. The patient tolerated the procedure well and the lid speculum was removed. Intracameral injection of Vigamox 0.1 mL followed by a subtenon injection of Kenalog-40 0.2 mL were administered. The patient will be seen in the a.m.
[2024-01-10 11:25] VITALS: BP 142/83; PULSE 72; RESP 18; TEMP 36.3; O2SAT 97
== END 2024-01-10 11:36 | disposition home or self-care (01) ==
PROVIDERS: PCP Internal Medicine; Visit Provider Ophthalmology
PROC: (CPT 66985; principal; 2024-01-10 11:00)
DX: H25.12 Age-related nuclear cataract, left eye (principal); H54.7 Unspecified visual loss; E03.9 Hypothyroidism, unspecified; M81.0 Age-related osteoporosis without current pathological fracture; E78.5 Hyperlipidemia, unspecified; F41.9 Anxiety disorder, unspecified; Z96.643 Presence of artificial hip joint, bilateral; Z79.899 Other long term (current) drug therapy; Z79.82 Long term (current) use of aspirin
CPT/HCPCS: 66984; J2250; J3010; J3301; V2630

== ENCOUNTER 2024-01-18 08:00 | Outpatient (REF) | payer MEDICARE, OTHER, SELFPAY ==
[2024-01-18 09:26] LABS: Alanine Aminotransferase 25 U/L (0-31); Albumin Level 4.2 g/dL (3.5-5.0); Alkaline Phosphatase 56 U/L (39-117); Anion Gap 13 (12-20); Aspartate Amino Transferase 27 U/L (5-31); Bilirubin Total 0.4 mg/dL (0.0-1.0); Blood Urea Nitrogen 27 mg/dL (9-16); Calcium 9.7 mg/dL (8.4-10.2); Carbon Dioxide 27 mmol/L (22-29); Chloride 108 mmol/L (96-108); Estimated Glomerular Filt Rate > 60; Glucose Random 90 mg/dL (60-115); Phosphorus 3.4 mg/dL (2.7-4.5); Potassium 4.9 mmol/L (3.3-5.1); Sodium 143 mmol/L (135-145); Total Protein 6.7 g/dL (6.5-8.0)
[2024-01-18 09:46] LABS: Thyroid Stimulating Hormone 2.73 uIU/mL (0.32-4.0); Vitamin D 25-OH Total 55.7 ng/mL (>30)
[2024-01-29 15:18] LABS: N-Telopeptide 35 (see note); NTXCreaRU 98 mg/dL (20-275)
== END 2024-01-18 08:01 | disposition home or self-care (01) ==
LOC: HO.LAB 08:00
PROVIDERS: Internal Medicine; Internal Medicine Endocrinology, Diabetes & Metabolism; PCP Internal Medicine; Visit Provider Internal Medicine
DX: E03.9 Hypothyroidism, unspecified (principal); E55.9 Vitamin D deficiency, unspecified; M81.0 Age-related osteoporosis without current pathological fracture
CPT/HCPCS: 36415; 80053; 82306; 82523; 84100; 84439; 84443

== ENCOUNTER 2024-01-25 08:11 | Outpatient (AMB) | payer MEDICARE, OTHER, SELFPAY ==
--- NOTE | 2024-01-25 08:24 | MHC.PC.OV ---
Vital Signs 01/25/24 08:26 Height 5 ft 7 in Weight 149 lb BMI 23.3 BP 130/82 Blood Pressure Location Lt brachial Position Sitting Intake Visit Reasons: Annual Exam Intake Note: Patient here for a physical exam Car Porter Required: No Accompanied by: Self / Same As Patient Allergies No Known Allergies Allergy (Verified 01/25/24 08:49) Medication List - Last Reconciled 01/25/24 by Brittney Cruz MD amoxicillin 1,000 mg PO BID aspirin (Adult Low Dose Aspirin) 81 mg PO DAILY calcium carbonate (Calcium 600) 1,200 mg (2 x 600 mg calcium (1,500 mg)) PO DAILY 90 days citalopram 30 mg (1.5 x 20 mg) PO DAILY 90 days levothyroxine 100 mcg PO DAILY 90 days omega 1-oww-bbc-fish oil 60-90-500 mg (Fish Oil) 1 cap PO DAILY propranolol 20 mg PO BID PRN Tobacco use date assessed: 12/21/23 Fall risk assessment: No Falls in past year Last assessed Fall Risk: 01/25/24 Dental Screening Dental Screen Date: 12/21/23 HPI HPI Comments History of Present Illness Details This is a 73-year-old female with mild major depression that comes for her physical exam. Depression stable with medications. Mammogram done today at [facility] and results are still pending. Colonoscopy done 2020 showing hyperplastic polyp. Denies any chest pain or shortness on breath. [facility] Medical History (Updated 01/25/24 @ 10:29 by Brittney Cruz MD) Cataract Pre-op evaluation Right hip pain Pure hypercholesterolemia Constipation by delayed colonic transit Mild major depression, single episode MEHRAN (generalized anxiety disorder) Mass of right hand Dyslipidemia Hip pain Vitamin D deficiency Pelvic pain in female History of breast cancer Osteoporosis Depression with anxiety Hypothyroidism Surgical History (Updated 01/25/24 @ 08:55 by Brittney Cruz MD) Cataract extraction status of eye History of left hip replacement History of lumpectomy of right breast History of section History of hip replacement Family History Father FH: prostate cancer Mother Stroke Hypertension Osteoporosis Sister COPD (chronic obstructive pulmonary disease) Social History Housing: House Alcohol intake: current Alcohol intake frequency: holidays/special occasions only Alcohol type: wine Patient Tobacco Use Status: Never used Tobacco e-Cigarette/Vaping Use: Never Used Second Hand Smoke Exposure: No Advance Directives Date on File: 10/08/20 service: No Current occupational status: employed Current occupation: rt handed Current occupational exposures/hazards: No Cognitive needs: No Hearing needs: No Vision needs: Yes Questionnaire PHQ-9 Over the last 2 weeks, how often have you been bothered by any of the following problems? 1. Little interest or pleasure in doing things: not at all 2. Feeling down, depressed, or hopeless: not at all 3. Trouble falling or staying asleep, or sleeping too much: not at all 4. Feeling tired or having little energy: not at all 5. Poor appetite or overeating: not at all 6. Feeling bad about yourself - or that you are a failure or have let yourself or your family down: not at all 7. Trouble concentrating on things, such as reading the newspaper or watching television: not at all 8. Moving or speaking so slowly that other people could have noticed. Or the opposite - being so fidgety or restless that you have been moving around a lot more than usual: not at all 9. Thoughts that you would be better off or of hurting yourself in some way: not at all Total score: 0 Depression Screening Interpretation: Negative Depression Screening Done: Yes 59806 - PHQ-9 Billing: Yes Source: Developed by Drs. Sebastian Mejia, Nazanin Whitt, Martin Wilson and colleagues, with an educational raffi from [employer]. Thrive Questionnaire Date Thrive assessed: 01/18/24 I am a: Patient What is your living situation today?: I have a steady place to live Within the past 12 months, did the food you bought not last and you didn't have the money to get more?: Never true Within the past 12 months, did you worry whether your food would run out before you got money to buy more?: Never true Do you have trouble paying for medicines?: No Do you have trouble getting transportation to medical appointments?: No Do you have trouble paying your heating and electricity bill?: No Do you have trouble taking care of your child, family member or friend?: No Do you have trouble with day-to-day activities such as bathing, preparing meals, shopping, managing finances, etc.?: No Are you currently unemployed and looking for a job?: No Are you interested in more education?: No Please select the resources that you would like help with: None Currently or been in a relationship where the following occur: No concerns reported THRIVE Score: 0 AUDIT C Alcohol Use Questionnaire (AUDIT-C) 3. How often do you have six or more drinks on one occasion?: Never Total Score: 0 MEHRAN-7 AMB Questionnaire MEHRAN-7 Date MEHRAN - 7 assessed: 10/06/23 Feeling nervous, anxious, or on edge: 0 = Not at all Not being able to stop or control worryin = Not at all Worrying too much about different things: 0 = Not at all Trouble relaxin = Not at all Being so restless that it is hard to sit still: 0 = Not at all Becoming easily annoyed or irritable: 0 = Not at all Feeling afraid as if something awful might happen: 0 = Not at all Total MEHRAN-7 score (0-4 normal; 5-9 mild; 10-14 moderate; 15-21 severe): 0 Source: Developed by Drs. Sebastian Mejia, Nazanin hWitt, Martin Wilson and colleagues, with an educational raffi from [employer]. MEHRAN-7 Assessment Billing MEHRAN-7 Assessment Tool: MEHRAN-7 Assessment 85424 Review of Systems Const All systems reviewed & are unremarkable except as noted in HPI and below Card Denies chest pain at rest, Denies chest pain with activity, Denies edema, Denies irregular heart rhythm, Denies claudication, Denies dyspnea, Denies dyspnea on exertion, Denies orthopnea, Denies paroxysmal nocturnal dyspnea and Denies slow heart rate Resp Denies cough, Denies dyspnea and Denies dyspnea on exertion Musc Denies abnormal gait, Denies atrophy, Denies deformity and Denies limited range of motion Skin/Breast Denies bleeding lesions, Denies changing lesions and Denies rash Neuro Denies abnormal gait, Denies behavioral changes and Denies lack of coordination Psych Denies behavioral changes Physical exam (Primary Care) Vital Signs: Last Vital Signs BP 130/82 01/25/24 08:26 BMI result Body Mass Index 23.3 Tobacco/Smoking Status: Tobacco use Status Tobacco use date assessed 12/21/23 01/25/24 08:25 Patient Tobacco Use Status Never used Tobacco 01/25/24 08:25 e-Cigarette/Vaping Use Never Used 01/25/24 08:25 PHQ-9: PHQ-9 Score PHQ-9: Total score 0 01/25/24 08:52 Depression Screening Interpretation: Negative Thrive Assessment: Date of Thrive Assessment Date Thrive assessed 01/18/24 01/25/24 08:25 Currently or been in a relationship where the following occur: No concerns reported HENMT Head: Yes normal to inspection, Yes normocephalic and Yes atraumatic Ears: external ears normal Eyes General: appearance normal, both eyes and all related structures Eyelids: Yes eyelids normal Conjunctivae: conjunctivae normal Neck Neck: Yes normal visual inspection and Yes supple Resp Effort & Inspection: normal respiratory effort Auscultation: clear to auscultation bilaterally Cardio Jugular venous distension: no JVD Rate: regular rate Rhythm: regular rhythm Heart sounds: S1 normal heart sound present and S2 normal heart sound present GI Inspection: Yes normal to inspection Palpation (GI): Soft to palpation and nontender Auscultation: normal bowel sounds Skin General skin exam: no rashes or lesions noted Neuro General: no focal motor deficits Extrem General: Yes full ROM Psych Appearance: grossly normal Coding Level of Care Code Est Pt Prev Care >65y(80670) Diagnoses Physical exam Z00.00 Mild major depression, single episode F32.0 Additional Codes MEHRAN-7 Assessment Billing - MEHRAN-7 Assessment Tool: MEHRAN-7 Assessment 78259 ([id number]) Time Spent (min) 31 Assessment & Plan Assessment & Plan (1) Physical exam: Code(s): Z00.00 - Encounter for general adult medical examination without abnormal findings Category: Medical Plan: Repeat in a year. (2) Mild major depression, single episode: Code(s): F32.0 - Major depressive disorder, single episode, mild Category: Medical Plan: Continue citalopram. Orders: Orders Rubella IgG Antibody Today Z23 - Encounter for immunization Lipid Panel Today E78.5 - Hyperlipidemia, unspecified Rubeola IgG (Measles) Today Z23 - Encounter for immunization Mumps Virus IgG Antibody Today Z23 - Encounter for immunization Medications: New amoxicillin 2,000 mg (4 x 500 mg) PO ONCE 4 caps 0RF 1 day doxycycline hyclate 100 mg PO BID 7 days 14 caps 0RF doxycycline hyclate 100 mg PO BID 14 caps 0RF 7 days poliovirus vaccine 0.5 mL IM ONCE 5 mL 0RF 1 day
[2024-01-25 08:26] VITALS: BP 130/82; BMI 23.3
== END 2024-01-25 09:05 | disposition home or self-care (01) ==
LOC: HO.HMCH 08:12
PROVIDERS: PCP Internal Medicine; Visit Provider Internal Medicine
DX: Z00.00 Encounter for general adult medical examination without abnormal findings (principal); F32.0 Major depressive disorder, single episode, mild

== ENCOUNTER → 2024-01-25 08:11 | Outpatient (BNVA) | payer MEDICARE, OTHER, SELFPAY | PROVIDERS: PCP Internal Medicine; Visit Provider Internal Medicine | DX: Z00.00 Encounter for general adult medical examination without abnormal findings (principal); F32.0 Major depressive disorder, single episode, mild | CPT/HCPCS: 96127; 99397 ==

== ENCOUNTER 2024-02-09 06:47 | Outpatient (REF) | payer MEDICARE, OTHER, SELFPAY ==
[2024-02-09 07:49] LABS: Calcium 9.8 mg/dL (8.4-10.2); Cholesterol 226 mg/dL (<200); HDL Cholesterol 67 mg/dL (>40); LDL Cholesterol Calculated 150 mg/dL (<100); Triglycerides 46 mg/dL (<150)
[2024-02-11 01:39] LABS: Mumps Virus IgG Antibody >300.00 AU/mL; Rubeola IgG (Measles) >300.00 AU/mL
== END 2024-02-09 06:48 | disposition home or self-care (01) ==
LOC: HO.LAB 06:47
PROVIDERS: Internal Medicine Endocrinology, Diabetes & Metabolism; PCP Internal Medicine; Visit Provider Internal Medicine
DX: M81.0 Age-related osteoporosis without current pathological fracture (principal); E78.5 Hyperlipidemia, unspecified; Z01.84 Encounter for antibody response examination
CPT/HCPCS: 36415; 80061; 82310; 86735; 86762; 86765

== ENCOUNTER 2024-03-24 13:31 | Outpatient (REF) | payer MEDICARE, OTHER, SELFPAY ==
[2024-03-24 14:58] LABS: Alanine Aminotransferase 24 U/L (0-31); Albumin Level 4.1 g/dL (3.5-5.0); Alkaline Phosphatase 68 U/L (39-117); Anion Gap 11 (12-20); Aspartate Amino Transferase 24 U/L (5-31); Bilirubin Total 0.5 mg/dL (0.0-1.0); Blood Urea Nitrogen 23 mg/dL (9-16); Calcium 9.2 mg/dL (8.4-10.2); Carbon Dioxide 27 mmol/L (22-29); Chloride 108 mmol/L (96-108); Cholesterol 237 mg/dL (<200); Estimated Glomerular Filt Rate > 60; Glucose Fasting 87 mg/dL (60-99); HDL Cholesterol 68 mg/dL (>40); LDL Cholesterol Calculated 156 mg/dL (<100); Potassium 4.2 mmol/L (3.3-5.1); Sodium 142 mmol/L (135-145); Total Protein 6.5 g/dL (6.5-8.0); Triglycerides 67 mg/dL (<150)
--- OUTSIDE RECORDS SUMMARY | 2024-03-24 15:03 | XMS_ITS | Patient Health Record ---
Author Organization [facility] Address [address] [place] [id number] Care Team Providers Care Wall And Floor Tiler Name Role Phone Brittney Figueroa Primary Care Provider Ankur Miramontes Jr Unavailable [phone] ALLERGIES No Known Allergies REASON FOR REFERRAL No Information MEDICATIONS Medication SIG (Take, Route, Fr equency, Duration) Notes Start Date End Date Status Fish Oil Active Multi Vitamin Daily Active Levothyroxine Sodium Active Vitamin C Active Prolia 60 MG/ML as directed Subcutaneous Active Calcium Active Citalopram Hydrobromide Active IMMUNIZATIONS Vaccine Route Administration Date Status Comme nts Influenza Unknown 01/03/2020 Administered Influenza Unknown 02/10/2022 Administered SOCIAL HISTORY Sex Assigned At : Social History Observation Description Sex Assigned At Unknown PROBLEMS Problem Type ICD Code Onset Dates Problem Status W/U Status Risk SNOMED Code Notes Problem Colon cancer screening (Z12.11) Active confirmed 573477361 Problem Abdominal bloating (R14.0) Active confirmed 497613269 Problem Constipation, unspecified constipation type (K59.00) Active confirmed 16117349 Problem Other specified pre-operative examination (Z01.818) Active confirmed 29296422 Problem Long-term current use of high risk medication other than anticoagulant (Z79.899) Active confirmed 898552582 Problem Pelvic pain (R10.2) Active confirmed 67154931 Problem Abdominal discomfort (R10.9) Active confirmed 42185039 PLAN OF TREATMENT Future Test Test Name Order Date COLONOSCOPY 01/25/2015 COLONOSCOPY 07/01/2020 Insurance Providers Payer Name Payer Address Payer Phone Subscriber Number Group Number Insured Name Patient Relationship to Insured Coverage Start Date Coverage End Date MEDICARE OF HEATHER [address] [place] [id number] [phone] [id number] DENILSON NINO Self - patient is the insured FOR LIFE [address] [place] [address] [id number] DENILSON NINO Self - patient is the insured MEDICAL (GENERAL) HISTORY Medical History History ICD Code Colonoscopy 10/08/20, hyperpl astic polyp, ten-year followup optional based on age anxiety/depression elevated cholesterol Osteoporosis Hypothyroidism Surgical History Surgery Date(Month/Year) total hip replacement, right 2010 lumpectomy, right breast total hip replacement, left 11/09
[2024-03-24 15:15] LABS: Thyroid Stimulating Hormone 3.09 uIU/mL (0.32-4.0); Vitamin D 25-OH Total 48.6 ng/mL (>30)
== END 2024-03-24 13:32 | disposition home or self-care (01) ==
LOC: HO.LAB 13:31
PROVIDERS: PCP Internal Medicine; Visit Provider Internal Medicine Endocrinology, Diabetes & Metabolism
DX: E78.00 Pure hypercholesterolemia, unspecified (principal); E03.9 Hypothyroidism, unspecified; E55.9 Vitamin D deficiency, unspecified; E78.5 Hyperlipidemia, unspecified
CPT/HCPCS: 36415; 80053; 80061; 82306; 84443

== ENCOUNTER 2024-03-25 08:37 | Outpatient (REF) | payer MEDICARE, OTHER, SELFPAY ==
--- OUTSIDE RECORDS SUMMARY | 2024-03-25 08:39 | XMS_ITS | Patient Health Record ---
Author Organization [facility] Address [address] [place] [id number] Care Team Providers Care Customer Complaint Clerk Name Role Phone Brittney Figueroa Primary Care Provider Ankur Miramontes Jr Unavailable ALLERGIES No Known Allergies REASON FOR REFERRAL [...] Problem Colon cancer screening (Z12.11) Active confirmed 472155589 Problem Abdominal bloating (R14.0) Active confirmed 796436025 Problem Constipation, unspecified constipation type (K59.00) Active confirmed 38701137 Problem Other specified pre-operative examination (Z01.818) Active confirmed 54362904 Problem Long-term current use of high risk medication other than anticoagulant (Z79.899) Active confirmed 666273101 Problem Pelvic pain (R10.2) Active confirmed 35628040 Problem Abdominal discomfort (R10.9) Active confirmed 93317540 PLAN OF TREATMENT Future Test Test Name Order Date COLONOSCOPY 01/25/2015 COLONOSCOPY 07/01/2020 Insurance Providers Payer Name Payer Address Payer Phone Subscriber Number Group Number Insured Name Patient Relationship to Insured Coverage Start Date Coverage End Date MEDICARE OF [address]ATHER [address] [place] [id number] DENILSON NINO Self - patient is the insured FOR LIFE [address] [place] [address] [phone] [id number] DENILSON NINO Self - patient is the insured MEDICAL (GENERAL) HISTORY Medical History History ICD Code Colonoscopy 10/08/20, hyperpl astic polyp, ten-year followup optional based on age anxiety/depression elevated cholesterol Osteoporosis Hypothyroidism Surgical History Surgery Date(Month/Year) total hip replacement, right 2010 lumpectomy, right breast total hip replacement, left 11/09
[2024-03-30 18:27] LABS: N-Telopeptide 55 (see note); NTXCreaRU 70 mg/dL (20-275)
== END 2024-03-25 08:38 | disposition home or self-care (01) ==
LOC: HO.LNP 08:37
PROVIDERS: Visit Provider Internal Medicine Endocrinology, Diabetes & Metabolism
DX: M81.0 Age-related osteoporosis without current pathological fracture (principal)
CPT/HCPCS: 82523

== ENCOUNTER 2024-05-03 08:19 | Outpatient (AMB) | payer MEDICARE, OTHER, SELFPAY ==
--- NOTE | 2024-05-03 08:25 | A.OFFVIS_ITS ---
Vital Signs 05/03/24 08:28 Height 5 ft 5.94 in Weight 149 lb 11.102 oz BMI 24.2 BP 120/68 Blood Pressure Location Rt brachial Position Sitting Pulse 75 Pulse Source Pulse Oximeter Pulse Oximetry (%) 98 Oxygen Delivery Method Room Air Intake Visit Reasons: Osteoporosis Intake Note: Patient present today for Osteoporosis follow up visit. Agronomy Research Manager Required: No Accompanied by: Self / Same As Patient Allergies No Known Allergies Allergy (Verified 05/03/24 08:28) Medication List - Last Reconciled 05/03/24 by Sebastian Luther MD alendronate 70 mg PO QWEEK amoxicillin 2,000 mg (4 x 500 mg) PO ONCE 1 day aspirin (Adult Low Dose Aspirin) 81 mg PO DAILY calcium carbonate (Calcium 600) 1,200 mg (2 x 600 mg calcium (1,500 mg)) PO DAILY 90 days citalopram 30 mg (1.5 x 20 mg) PO DAILY 90 days doxycycline hyclate 100 mg PO BID 7 days levothyroxine 100 mcg PO DAILY 90 days omega 4-rau-ztc-fish oil 60-90-500 mg (Fish Oil) 1 cap PO DAILY poliovirus vaccine 0.5 mL IM ONCE 1 day propranolol 20 mg PO BID PRN HPI Comments Details: 74 YO Female with PMHx Osteoporosis who is seen in F/U for Osteoporosis. First diagnosed in 2015. Received treatment in the past with Fosamax, from 2015 to 04/2020. Tolerated treatment well without complication. This was stopped by Dr. Rivera after she completed 5 years of therapy. She has Osteoporosis of the hip, and Osteopenia of the spine. Her BMD has worsened and she has failed treatment with Fosamax. After our initial visit she underwent a full biochemical evaluation for se condary causes of Osteoporosis, which was WNL. She then was started on Prolia as of 07/31/2021 and has received this q6 months. She is due for her third dose today. She has tolerated this well. No history of pathologic fracture or ONJ. Has 0-1 servings of dietary calcium per day in the form of yogurt. Takes Calcium supplement 1200 mg PO daily in divided doses. Does not take any Vitamin D currently. Denies ever using PPI, anticoagulant, antiepileptic or glucocorticoid medication. Does weight bearing exercise with [place] 4-5 days per week. Fracture history: Denies Height loss: 0.5 inches ASSOCIATE DIRECTOR DATA & ANALYTICS history: Menarche was age 13. Menses was always regular. She is . She breastfed for a total of 18 months. Menopause was age 53. Denies a history of Kidney stones: Mother had a history of Osteoporosis. No Family history of hip fracture. UTD on dental cleanings and sees dentist every 6 months. No planned upcoming dental work or extractions. DXA dated 02/28/2021: FINDINGS: AP SPINE L1-L4: Current: BMD 1.035 g/cm2, Z-score 0.3, T-score -1.2, osteopenia, 3.2% increase from previous, 4.9% increase from baseline (<5% change is not significant). Prior: BMD 1.003 g/cm2. Baseline: BMD 0.987 g/cm2. LEFT FEMUR, NECK: Current: BMD 0.689 g/cm2, Z-score -1.0, T-score -2.5, osteoporosis. Prior: BMD 0.681 g/cm2. Baseline: BMD 0.738 g/cm2. LEFT FEMUR, TOTAL: Current: BMD 0.679 g/cm2, Z-score -1.3, T-score -2.6, osteoporosis, 3.3% decrease from previous, 9.2% decrease from baseline (<5% change is not significant). Prior: BMD 0.702 g/cm2. Baseline: BMD 0.748 g/cm2. Labs: Laboratory Tests 08/11/22 11:06 Sodium 145 Potassium 4.9 Creatinine 0.88 Estimated GFR > 60 Phosphorus 3.5 Albumin 4.3 25-OH Vitamin D Total 55.5 TSH 1.52 Free T4 1.13 last Prolia injection was 08/10/2023 . Received a dose of Reclast. No fracture since last visit. Urine NTX did increase but still in premenopausal range on alendronate 70 mg qwkly [facility] Medical History (Updated 01/25/24 @ 10:29 by Brittney Cruz MD) Cataract Pre-op evaluation Right hip pain Pure hypercholesterolemia Constipation by delayed colonic transit Mild major depression, single episode MEHRAN (generalized anxiety disorder) Mass of right hand Dyslipidemia Hip pain Vitamin D deficiency Pelvic pain in female History of breast cancer Osteoporosis Depression with anxiety Hypothyroidism Surgical History Cataract extraction status of eye History of left hip replacement History of lumpectomy of right breast History of section History of hip replacement Family History Father FH: prostate cancer Mother Stroke Hypertension Osteoporosis Sister COPD (chronic obstructive pulmonary disease) Social History Housing: House Alcohol intake: current Alcohol intake frequency: holidays/special occasions only Alcohol type: wine Patient Tobacco Use Status: Never used Tobacco e-Cigarette/Vaping Use: Never Used Second Hand Smoke Exposure: No Advance Directives Date on File: 10/08/20 service: No Current occupational status: employed Current occupation: rt handed Current occupational exposures/hazards: No Cognitive needs: No Hearing needs: No Vision needs: Yes Physical Exam Vital Signs: Last Vital Signs Pulse 75 05/03/24 08:28 BP 120/68 05/03/24 08:28 Pulse Ox 98 05/03/24 08:28 Oxygen Delivery Method Room Air 05/03/24 08:28 BMI result Body Mass Index 24.2 Assessment & Plan Assessment & Plan (1) Osteoporosis: Code(s): M81.0 - Age-related osteoporosis without current pathological fracture Category: Medical Qualifiers: Osteoporosis type: age-related Presence of current pathological fracture: without current pathological fracture Qualified Code(s): M81.0 - Age- related osteoporosis without current pathological fracture Plan: This 73-year-old white female with a history of osteoporosis treated for 5 years with Fosamax and then Prolia for 1 1/2 years. Her DEXA bone density shows borderline osteoporosis in the hip with a T-score -2.7. Patient has not had fracture. Secondary workup is negative. Last Prolia injection was 07/2023 and on alendronate since 01/2024 . Urine NTX increase but still in premenopausal range The plan is to continue to observe on calcium and vitamin-D and alendronate . Will recheck urine NTX in 6 months' time Orders: Orders Collagen Crosslinks NTX 6 Months M81.0 - Age-related osteoporosis without current pathological fracture Coding Level of Care Code Est Pt Level 3 (06310) Diagnoses Age-related osteoporosis without current pathological fracture M81.0 Osteoporosis type: age-related Presence of current pathological fracture: without current pathological fracture
[2024-05-03 08:28] VITALS: BP 120/68; PULSE 75; O2SAT 98; BMI 24.2
--- OUTSIDE RECORDS SUMMARY | 2024-05-03 08:53 | XMS_ITS | Clinical Summary ---
Author Organization [facility] Address [address] [place] [address] Care Team Providers Care Change Control Analyst Name Role Phone Unavailable Primary Care Provider Unavailabl e Allergies No known active allergies Medications Medication Sig Dispensed Refills Start Date End Date Status propranolol (INDERAL) 20 MG tablet 2 09/14/2014 Active citalopram (CELEXA) 20 MG tablet 6 10/04/2014 Active levothyroxine (SYNTHROID, LEVOTHROID) 100 MCG tablet Take 100 mcg by mouth every morning on an empty stomach. 0 Active clobetasol (TEMOVATE) 0.05 % external solution Apply topically 2 (two) times a day. 50 mL 1 11/16/2014 Active Clobetasol Propionate 0.05 % shampoo Apply 1 application topically daily. 118 mL 2 11/16/2014 Active Social History Tobacco Use Types Packs/Day Years Used Date Smoking Tobacco: Never Assessed Sex and Gender Information Value Date Recorded Sex Assigned at Not on file Gender Identity Not on file Sexual Orientation Not on file Plan of Treatment Health Maintenance Due Date Last Done Comments Hepatitis C Screening 1950 COVID-19 Vaccine (#1) 1951 Depression Screening 1963 Preventative Health Evaluation 1969 DTap / Tdap / Td (1 - Tdap) 1970 Colon Cancer Screening (Colonoscopy) 1996 Breast Cancer Screening (Mammogram) 2001 Shingrix-Zoster Vaccine (1 of 2) 2001 Fall Risk Assessment 2016 Osteoporosis Screening (DEXA Scan) 2016 Pneumococcal Vaccine (1 of 1 - PCV) 2016 Influenza Vaccine (#1) 2023 RSV Adult > 60+ Yrs or Pregn ant (1 - 1-dose 75+ series) 2026 Hepatitis B Vaccines Aged Out No long er eligible based on patient's age to complete this topic RSV Ped < 20 months Aged Out No longe r eligible based on patient's age to complete this topic
--- OUTSIDE RECORDS SUMMARY | 2024-05-03 08:53 | XMS_ITS | Patient Health Record ---
Author Organization [facility] Address [address] [place] [id number] Care Team Providers Care Kiln Car Unloader Name Role Phone Brittney Figueroa Primary Care [...] Problem Colon cancer screening (Z12.11) Active confirmed 263598479 Problem Abdominal bloating (R14.0) Active confirmed 308705214 Problem Constipation, unspecified constipation type (K59.00) Active confirmed 60048209 Problem Other specified pre-operative examination (Z01.818) Active confirmed 26343878 Problem Long-term current use of high risk medication other than anticoagulant (Z79.899) Active confirmed 613446992 Problem Pelvic pain (R10.2) Active confirmed 17722690 Problem Abdominal discomfort (R10.9) Active confirmed 52662823 PLAN OF TREATMENT Future Test Test Name Order Date COLONOSCOPY 01/25/2015 COLONOSCOPY 07/01/2020 Insurance Providers Payer Name Payer Address Payer Phone Subscriber Number Group Number Insured Name Patient Relationship to Insured Coverage Start Date Coverage End Date MEDICARE OF HEATHER [address] [place] [id number] [phone] [id number] DENILSON NINO Self - patient is the insured FOR LIFE [address] [place] [address] [id number] DENILSON NINO Self - patient is the insured MEDICAL (GENERAL) HISTORY Medical History History ICD Code Colonoscopy 10/08/20, hyperpl astic polyp, ten-year followup optional based on age anxiety/depression elevated cholesterol Osteoporosis Hypothyroidism Surgical History Surgery Date(Month/Year) total hip replacement, right 2010 lumpectomy, right breast total hip replacement, left 11/09
--- OUTSIDE RECORDS SUMMARY | 2024-05-03 08:53 | XMS_ITS | Data Portability ---
Author Organization [place] - [facility], [facility] Address [address] [place] [address] Assessment Encounter Date Assessment Date Assessment LastModified by Organization Details LastModified Time 10/15/2023 10/15/2023 Assessment: Elizabeth best hand Dupuytren's contracture, initial diagnosis Plan: We have discussed in detail the pathophysiology of this problem and treatment options. We have discussed needle aponeurotomy versus Xiaflex injection versus surgical treatment. She will continue with activities as tolerated and will follow-up when symptoms become bothersome enough that she would like to pursue treatment. This may very well involve a surgical treatment and we have discussed to some degree today what would be involved with the surgery and the anticipated recovery including the involvement of a hand therapist. She understands that Dupuytren's can be recurrent after any of the treatment modalities. renny Not available 10/15/2023 11:32:31 Plan of Treatment Reminders Order Date Submit Date Provider Last Modified By Organization Details Last Modified Time Details Appointments None record ed. Lab None record ed. Referral None record ed. Procedures None record ed. Surgeries None record ed. Imaging None record ed. Medication Orders None record ed. Patient TargetsNo targets recorded. Patient InstructionsNo instructions recorded. Reason for Referral None Reported. Results Created Date Observation Date Name Description Value Unit Range Abnormal Flag Note LastModifiedBy Organization Detail LastModifiedTime 11/19/19 24 07/29/2020 imagi ng/onel deshpande tic pastora t No observ ation record ed. [email or web address] Not Available 10/22 22:29:35 Result Notes None recorded. Procedures Surgical History None recorded. Imaging Results Imaging Date Name Status LastModified by Organiz ation Details LastModified Time 07/29/2020 imaging/diag nostic result completed [email or web address] Information not available 11/19/2023 22:29:35 Procedure Notes None recorded. Medical Equipment None Reported. Allergies No known drug allergies Medications Name Sig Start Date Stop Date Status Note LastModified by Organization Details LastModified Time amoxicillin 500 mg capsule TAKE 4 CAPSULES BY MOUTH 1 HOURS BEFORE PROCEDURE active Not Available Not Available No t Available clonidine HCl 0.1 mg tablet TAKE 1 TABLET BY MOUTH EVERY 8 HOURS NEEDED FOR ANXIETY OR INSOMNIA active Not Available Not Available No t Available azithromycin 250 mg tablet active Not Available Not Available Not Available sumatriptan 25 mg tablet TAKE 1 TABLET BY MOUTH EVERY 2-4 HOURS NEEDED FOR MIGRAINE HEADACHE. DO NOT EXCEED 8 DOSES OH 24 HOURS active Not Available Not Available No t Available alendronate 70 mg tablet TAKE 1 TABLET BY MOUTH EVERY WEEK active Not Available Not Available No t Available Synthroid 100 mcg tablet active Not Available Not Available Not Available sumatriptan 50 mg tablet active Not Available Not Available Not Available amoxicillin 500 mg tablet TAKE 4 TABLETS BY MOUTH DAILY FOR 1 DAY active Not Available Not Available No t Available citalopram 20 mg tablet TAKE 1 AND 1/2 TABLETS BY MOUTH EVERY DAY active Not Available Not Available No t Available methylpredni solone 4 mg tablets in a dose pack FOLLOW PACKAGE DIRECTIONS active Not Available Not Available N ot Available albuterol sulfate HFA 90 mcg/actuatio n aerosol inhaler INHALE 2 PUFFS INTO THE LUNGS FOUR TIMES DAILY NEEDED active Not Available Not Available No t Available propranolol 20 mg tablet TAKE 1 TABLET BY MOUTH EVERY 12 HOURS DIRECTED active Not Available Not Available No t Available Vitals Date Recorded Body height Body mass index (BMI) Body weight Provider Name and Address Organization Details Last Updated DateTime 10/15/2023 170.18 cm 22.7 kg/m2 90729.89 g AIMEE AKBAR [place] - [facility] 10/15/2023 10:42:46 Social History None recorded. Functional Status None recorded. Mental Status None recorded. Family History Nothing Reported. Medical History No medical history recorded. Gynecological HistoryNo gynecological history recorded. Obstetrics History GPAL:G 0 P 0 0 0 0 Past Encounters Encounter ID Performer Location Encounter Start Date Encounter Closed Date Diagnosis/Indication Diagnosis SNOMED-CT Code Diagnosis ICD10 Code Diagnosis Note [id number] MD [facility] [address] [place] [address] 10/15/2023 10:00:31 11/02/2023 12:59:14 Dupuytren's disease of palm [id number] M72.0 Health Concerns Section Related Observation LastModified by Organization Detai ls LastModified Time None Recorded Concern Status LastModified by Organization Details LastModified Time None Recorded Advance Directives Directive None Recorded Payers Encounter Date Sequence Insurance Name Policy Number Policy Mandujano Covered Member ID Mandujano Member ID Guarantor Name 10/15/2023 2 [employer] - FOR LIFE (MEDICARE SUPPLEMENT) Jenelle Griffith [id number] Jenellearianne Griffith 10/15/2023 1 [place] [employer] Jenelle Griffith [id number] Jenelle Gladis Notes Date Note Type Note Provider Name and Address Organization Details Recorded Time 10/15/2023 text/html 73 yo RHD female seen for initial eval of developing R palm Dupuytren's contracture, 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 Has noted developing tightening and contracture development over the past year. Denies numbness or tingling. Denies pain. Uma Chong MD [facility] [address], [place], [address], [facility] - [facility] 10/15/2023 11:33:19 OBGyn Episode No OBEpisode recorded.
--- OUTSIDE RECORDS SUMMARY | 2024-05-03 08:53 | XMS_ITS | Clinical Summary ---
Author Organization [facility] Address [address] [place] [address] Phone Care Team Providers Care [employer] Faculty Name Role Phone Brittney Cruz MD Primary Care Provider [phone] Allergies No known active allergies Medications aspirin 325 mg EC tablet Take 1 tablet (325 mg total) by mouth 2 (two) times a day. START AFTER SURGERY 11/14/2020 Active citalopram (CeleXA) 20 mg tablet 12/03/2020 Active levothyroxine (SYNTHROID, LEVOTHROID) 100 mcg tablet 12/03/2020 Active propranoloL (INDERAL) 20 mg tablet 01/19/2023 Active Active Problems Problem Noted Date Diagnosed Date Hypothyroidism 08/26/2018 Osteopenia 08/26/2018 Overview (01/26/2024): 04/2012 Dexascan: T score spine -1.5, hip -2.1 Surgical History Surgery Date Site/Laterality Comments BREAST LUMPECTOMY 02/01/2008 Right PROCEDURE: HISTORICAL BREAST LUMPECTOMY; COMMENT: biopsy w/lumpectomy; ductal carcinoma in situ BREAST BIOPSY 02/24/2008 Left PROCEDURE: BX BREAST; PERC NEEDLE CORE W/IMAG GUID; COMMENT: no evidence of malignancy OTHER SURGICAL HISTORY 02/13/2008 Right PROCEDURE: BREAST TISSUE EXCISIONAL PATHOLOGY EXAM; COMMENT: high grade ductal carcinoma in situ SECTION PROCEDURE: HISTORICAL Medical History Medical History Date Comments History of breast cancer 02/01/2008 DX:Hist ory of breast cancer; COMMENT: 2007 S/p right lumpectomy, radiation & Tamoxifen 5yrs (high grade ER + DCIS) Hypothyroidism 08/26/2018 DX:Hypothyroidis m Osteopenia 08/26/2018 DX:Osteopenia; C OMMENT: 04/2012 Dexascan: T score spine -1.5, hip -2.1 Family History Medical History Relation Name Comments Prostate cancer Father Relation Name Status Comments Father Social History Tobacco Use Types Packs/Day Years Used Date Smoking Tobacco: Never Smokeless Tobacco: Never Comments No Sex and Gender Information Value Date Recorded Sex Assigned at Not on file Legal Sex Female 10:26 PM EST Gender Identity Not on file Sexual Orientation Not on file Travel History Travel Start Travel End [place] 04/11/2024 04/22/2024 Obstetrics History Para Term AB IAB SAB Ectopic Multiple Livin g Live Births 3 Last Filed Vital Signs Vital Sign Reading Time Taken Comments Blood Pressure 130/80 03/03/2023 8:20 AM EST Pulse 77 03/03/2023 8:20 AM EST Temperature - - Respiratory Rate - - Oxygen Saturation - - Inhaled Oxygen Concentration - - Weight 67.1 kg (148 lb) 01/25/2024 7:18 AM EST Height 170.2 cm (5' 7 ) 01/25/2024 7:18 AM EST Body Mass Index 23.18 01/25/2024 7:18 AM EST Plan of Treatment Upcoming Encounters Date Type Department Care Team (Late st Contact Info) Description 05/08/2024 1:15 PM EST Office Visit General Surgery - [place] [address] [facility] [address] [place] [phone] Johnnie Harrell MD [address] [facility] [place] [address] [place] [id number] Health Maintenance Due Date Last Done Comments Colorectal Cancer Screening: Colonoscopy 02/22/2022 Depression Screening 02/22/2022 Falls Risk Assessment 02/22/2022 Hepatitis C Screening 02/22/2022 Medicare Annual Wellness Visit 02/22/2022 Osteoporosis Screening (Bone Density Screening) 02/22/2022 Social Influencers of Health Screening 02/22/2022 Breast Cancer Screening 01/24/2026 01/25/20 24, 12/01/2022, 11/18/2021, Additional history exists RSV Immunization Patients 60+ Years Old (1 - 1-dose 75+ series) 2026 DTaP,Tdap,and Td Vaccines (3 - Td or Tdap) 01/23/2034 01/24/2024, 09/07/2014 Hepatitis B Vaccines Completed 10/26/2007, 02/22/2007, 01/25/2007 Zoster Vaccines Completed 11/03/2019, 03/23, 12/21/2016 Pneumococcal Vaccine: 50+ Years Completed 12/25/2019, 07/20/2016 COVID-19 Vaccine Completed 12/31/2023, 05/2022, 07/13/2022, Additional history exists Influenza Vaccine Completed 12/31/2023, , 01/01/2022, Additional history exists Hepatitis A Vaccines Aged Out 01/24/2024, 10/26/2007, 02/22/2007, Additional history exists No longer eligible based on patient's age to complete this topic HIB Vaccines Aged Out No longer eligi ble based on patient's age to complete this topic HPV Vaccines Aged Out No longer eligi ble based on patient's age to complete this topic IPV Vaccines Aged Out No longer eligi ble based on patient's age to complete this topic MMR Vaccines Aged Out No longer eligi ble based on patient's age to complete this topic Meningococcal ACWY Vaccine Aged Out N o longer eligible based on patient's age to complete this topic Meningococcal B Vacine Aged Out No lo nger eligible based on patient's age to complete this topic RSV Immunization Patients Under 20 months Aged Out No longer eligible based on patient's age to complete this topic Varicella Vaccines Aged Out No longer eligible based on patient's age to complete this topic Procedures Procedure Name Priority Date/Time Associated Diagnosis Comments MG MAMMO DIGITAL SCREENING W SISI BILAT Routine 01/25/2024 7:52 AM EST Encounter for screening mammogram for breast cancer from Last 3 Months or Most Recently Relevant to Health Maintenance Results * MG Mammo Digital Screening w Sisi bilat (01/25/2024 7:52 AM EST) Anatomical Region Laterality Modality Breast Bilateral Mammography 01/25/2024 8:18 AM EST Impressions 01/25/2024 8:25 AM EST No mammographic evidence of malignancy. ?? No suspicious interval change. A negative mammogram in the presence of a clinically suspicious palpable abnormality does not preclude the possibility of malignancy or alter the indications for biopsy. ASSESSMENT: ?? BI-RADS 2: BENIGN RECOMMENDATION(S): 1: Routine screening mammogram BILATERAL in 1 year. -------- FINAL REPORT -------- Dictated By: Ken Fleming Dictated Date: 01/25/2024 08:18 ET Assigned Physician: Ken Fleming Reviewed and Electronically Signed By: Ken Fleming Signed Date: 01/25/2024 08:25 ET Workstation ID: [id number] Transcribed By: Self Edit Transcribed Date: 01/25/2024 08:18 ET Narrative 01/25/2024 8:25 AM EST EXAM: ??SCREENING MAMMOGRAPHY, BILATERAL HISTORY: ??SCREENING. ??Personal history of breast cancer. ??Right lumpectomy 2007. ??Radiation and TAMOXIFEN. COMPARISON: ??12/01/2022, 11/18/2021, 11/14/2020, 10/31/2019 TECHNIQUE: Synthesized CC and MLO projections of each breast. ??Tomosynthesis of each breast in the CC and MLO projections. ADDITIONAL IMAGING: Craniocaudal view of the right breast exaggerated 20 axilla Computer-aided detection was employed with the iCAD ??profound AI 3-D. TISSUE DENSITY: There are scattered areas of fibroglandular density. (BI-RADS category B) FINDINGS: RIGHT BREAST: There is unchanged architectural distortion in the 8 o'clock region consistent with prior lumpectomy. ??No change in the region of the biopsy site marker. ??No additional suspicious right breast findings LEFT BREAST: No suspicious mass. No suspicious calcification. No distortion. ?? No change in the region of a biopsy site marker Procedure Note Ken Fleming MD - 01/25/2024 EXAM: SCREENING MAMMOGRAPHY, BILATERAL HISTORY: SCREENING. Personal history of breast cancer. Right [id number]. Radiation and TAMOXIFEN. COMPARISON: 12/01/2022, 11/18/2021, 11/14/2020, 10/31/2019 TECHNIQUE: Synthesized CC and MLO projections of each breast.Tomosynthesis of each breast in the CC and MLO projections. ADDITIONAL IMAGING: Craniocaudal view of the right breast exaggerated 20axilla Computer-aided detection was employed with the iCAD profound AI 3-D. TISSUE DENSITY: There are scattered areas of fibroglandular density.(BI-RADS category B) FINDINGS: RIGHT BREAST: There is unchanged architectural distortion in the 8 o'clock regionconsistent with prior lumpectomy. No change in the region of the biopsysite marker. No additional suspicious right breast findings LEFT BREAST: No suspicious mass. No suspicious calcification. No distortion. Nochange in the region of a biopsy site marker IMPRESSION: No mammographic evidence of malignancy. No suspicious interval change. A negative mammogram in the presence of a clinically suspicious palpableabnormality does not preclude the possibility of malignancy or alter theindications for biopsy. ASSESSMENT: BI-RADS 2: BENIGN RECOMMENDATION(S): 1: Routine screening mammogram BILATERAL in 1 year. -------- FINAL REPORT -------- Dictated By: Ken Fleming Dictated Date: 01/25/2024 08:18 ET Assigned Physician: Ken Fleming Reviewed and Electronically Signed By: Ken Fleming Signed Date: 01/25/2024 08:25 ET Workstation ID: [id number] Transcribed By: Self Edit Transcribed Date: 01/25/2024 08:18 ET us Self Referral Sppl IMG BI PROCEDURES Final Resul t from Last 3 Months or Most Recently Relevant to [place] [id number] Care Teams [employer] Faculty Relationship Specialty Start Date End Date Brittney Cruz MD [address] [place] [address] , [address] [facility] HEATHER Ding PCP - General Internal Medicine 04/05/18
== END 2024-05-03 08:52 | disposition home or self-care (01) ==
PROVIDERS: PCP Internal Medicine; Visit Provider Internal Medicine Endocrinology, Diabetes & Metabolism
DX: M81.0 Age-related osteoporosis without current pathological fracture (principal)
CPT/HCPCS: 99213

== ENCOUNTER → 2024-05-03 08:19 | Outpatient (BNVA) | payer MEDICARE, OTHER, SELFPAY | PROVIDERS: PCP Internal Medicine; Visit Provider Internal Medicine Endocrinology, Diabetes & Metabolism | DX: M81.0 Age-related osteoporosis without current pathological fracture (principal) | CPT/HCPCS: 99212 ==

== ENCOUNTER 2024-06-12 07:41 | Outpatient (AMB) | payer MEDICARE, OTHER, SELFPAY ==
--- NOTE | 2024-06-12 07:44 | MHC.PC.OV ---
Vital Signs 06/12/24 07:49 Height 5 ft 5.94 in Weight 146 lb BMI 23.6 BP 122/70 Blood Pressure Location Lt brachial Position Sitting Intake Visit Reasons: thyroid,lipids Intake Note: Patient here for a follow up thyroid, lipids House Repairer Required: No Accompanied by: Self / Same As Patient Allergies No Known Allergies Allergy (Verified 06/12/24 08:10) Medication List - Last Reconciled 06/12/24 by Brittney Cruz MD alendronate 70 mg PO QWEEK amoxicillin 2,000 mg (4 x 500 mg) PO ONCE 1 day aspirin (Adult Low Dose Aspirin) 81 mg PO DAILY calcium carbonate (Calcium 600) 1,200 mg (2 x 600 mg calcium (1,500 mg)) PO DAILY 90 days citalopram 30 mg (1.5 x 20 mg) PO DAILY 90 days doxycycline hyclate 100 mg PO BID 7 days levothyroxine 100 mcg PO DAILY 90 days omega 3-kal-wpv-fish oil 60-90-500 mg (Fish Oil) 1 cap PO DAILY poliovirus vaccine 0.5 mL IM ONCE 1 day propranolol 20 mg PO BID PRN Tobacco use date assessed: 06/12/24 Dental Screening Dental Screen Date: 12/21/23 HPI HPI Comments History of Present Illness Details The patient is a 74-year-old female presenting with management of recurring tension-type headaches. Historically, she experienced migraines before menopause, but post-menopause, these ceased until she began experiencing tension-like headaches. She reports these occur at least three times weekly, often surpassing 12 episodes monthly. Affected by stress, these headaches are typically localized and do not carry symptoms like light sensitivity seen in migraines. Tylenol occasionally offers partial relief, whereas sumatriptan is more effective. 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 No sinus problems or other neurological symptoms were reported. She has pure hypercholesterolemia in which dietary changes were advised and lipid panel will be repeated in 4 months. Also has hypothyroidism well controlled with a normal TSH. She also has mild major depression that is stable with citalopram. Last DEXA scan done 2022 shows osteoporosis on alendronate once a week and this is follow by Endocrinology. [facility] Medical History (Updated 06/12/24 @ 10:05 by Brittney Cruz MD) Cataract Pre-op evaluation Right hip pain Pure hypercholesterolemia Constipation by delayed colonic transit Mild major depression, single episode MEHRAN (generalized anxiety disorder) Mass of right hand Dyslipidemia Hip pain Vitamin D deficiency Pelvic pain in female History of breast cancer Osteoporosis Depression with anxiety Hypothyroidism Surgical History Cataract extraction status of eye History of left hip replacement History of lumpectomy of right breast History of section History of hip replacement Family History Father FH: prostate cancer Mother Stroke Hypertension Osteoporosis Sister COPD (chronic obstructive pulmonary disease) Social History Housing: House Alcohol intake: current Alcohol intake frequency: holidays/special occasions only Alcohol type: wine Patient Tobacco Use Status: Never used Tobacco e-Cigarette/Vaping Use: Never Used Second Hand Smoke Exposure: No Advance Directives Date on File: 10/08/20 service: No Current occupational status: employed Current occupation: rt handed Current occupational exposures/hazards: No Cognitive needs: No Hearing needs: No Vision needs: Yes Questionnaire PHQ-9 Over the last 2 weeks, how often have you been bothered by any of the following problems? 1. Little interest or pleasure in doing things: not at all 2. Feeling down, depressed, or hopeless: not at all 3. Trouble falling or staying asleep, or sleeping too much: not at all 4. Feeling tired or having little energy: not at all 5. Poor appetite or overeating: not at all 6. Feeling bad about yourself - or that you are a failure or have let yourself or your family down: not at all 7. Trouble concentrating on things, such as reading the newspaper or watching television: not at all 8. Moving or speaking so slowly that other people could have noticed. Or the opposite - being so fidgety or restless that you have been moving around a lot more than usual: not at all 9. Thoughts that you would be better off or of hurting yourself in some way: not at all Total score: 0 Depression Screening Interpretation: Negative Depression Screening Done: Yes 62295 - PHQ-9 Billing: Yes Source: Developed by Drs. Sebastian L. Nazanin Mejia Kurt Kroenke and colleagues, with an educational raffi from [employer]. Thrive Questionnaire Date Thrive assessed: 06/12/24 I am a: Patient What is your living situation today?: I have a steady place to live Within the past 12 months, did the food you bought not last and you didn't have the money to get more?: Never true Within the past 12 months, did you worry whether your food would run out before you got money to buy more?: Never true Do you have trouble paying for medicines?: No Do you have trouble getting transportation to medical appointments?: No Do you have trouble paying your heating and electricity bill?: No Do you have trouble taking care of your child, family member or friend?: No Do you have trouble with day-to-day activities such as bathing, preparing meals, shopping, managing finances, etc.?: No Are you currently unemployed and looking for a job?: No Are you interested in more education?: No Please select the resources that you would like help with: None Currently or been in a relationship where the following occur: No concerns reported THRIVE Score: 0 AUDIT C Alcohol Use Questionnaire (AUDIT-C) 1. How often do you have a drink containing alcohol?: Never Total Score: 0 MEHRAN-7 AMB Questionnaire MEHRAN-7 Date MEHRAN - 7 assessed: 06/12/24 Feeling nervous, anxious, or on edge: 0 = Not at all Not being able to stop or control worryin = Not at all Worrying too much about different things: 0 = Not at all Trouble relaxin = Not at all Being so restless that it is hard to sit still: 0 = Not at all Becoming easily annoyed or irritable: 0 = Not at all Feeling afraid as if something awful might happen: 0 = Not at all Total MEHRAN-7 score (0-4 normal; 5-9 mild; 10-14 moderate; 15-21 severe): 0 Source: Developed by Drs. Sebastian Mejia, Martin Malone and colleagues, with an educational raffi from [employer]. MEHRAN-7 Assessment Billing MEHRAN-7 Assessment Tool: MEHRAN-7 Assessment 51440 Review of Systems Const All systems reviewed & are unremarkable except as noted in HPI and below Reports headache(s) ENT Reports headache(s) Card Denies chest pain at rest, Denies chest pain with activity, Denies edema, Denies irregular heart rhythm, Denies claudication, Denies dyspnea, Denies dyspnea on exertion, Denies orthopnea, Denies paroxysmal nocturnal dyspnea and Denies slow heart rate Resp Denies cough, Denies dyspnea and Denies dyspnea on exertion GI Denies abdominal pain, Denies change in bowel habits, Denies excessive flatus, Denies nausea and Denies vomiting Neuro Reports headache(s) Physical exam (Primary Care) Vital Signs: Last Vital Signs BP 122/70 06/12/24 07:49 BMI result Body Mass Index 23.6 Tobacco/Smoking Status: Tobacco use Status Tobacco use date assessed 06/12/24 06/12/24 07:47 Patient Tobacco Use Status Never used Tobacco 06/12/24 07:47 e-Cigarette/Vaping Use Never Used 06/12/24 07:47 PHQ-9: PHQ-9 Score PHQ-9: Total score 0 06/12/24 08:18 Depression Screening Interpretation: Negative Thrive Assessment: Date of Thrive Assessment Date Thrive assessed 06/12/24 06/12/24 07:47 Currently or been in a relationship where the following occur: No concerns reported Resp Effort & Inspection: normal respiratory effort Auscultation: clear to auscultation bilaterally Cardio Jugular venous distension: no JVD Rate: regular rate Rhythm: regular rhythm Heart sounds: S1 normal heart sound present and S2 normal heart sound present Extrem General: Yes full ROM Psych Appearance: grossly normal Coding Level of Care Code Est Pt Level 4 (47452) Complex EM visit Add On G2211 Diagnoses Episodic tension-type headache, not intractable G44.219 Headache chronicity pattern: episodic headache Intractability: not intractable Mild major depression, single episode F32.0 Pure hypercholesterolemia E78.00 Acquired hypothyroidism E03.9 Hypothyroidism type: acquired Age-related osteoporosis without current pathological fracture M81.0 Osteoporosis type: age-related Presence of current pathological fracture: without current pathological fracture Additional Codes MEHRAN-7 Assessment Billing - MEHRAN-7 Assessment Tool: MEHRAN-7 Assessment 56224 ([id number]) PHQ-9 - 95650 - PHQ-9 Billing: Yes ([id number]) Time Spent (min) 23 Assessment & Plan Assessment & Plan (1) Tension-type headache: Code(s): G44.209 - Tension-type headache, unspecified, not intractable Category: Medical Qualifiers: Headache chronicity pattern: episodic headache Intractability: not intractable Qualified Code(s): G44.219 - Episodic tension-type headache, not intractable (2) Mild major depression, single episode: Code(s): F32.0 - Major depressive disorder, single episode, mild Category: Medical (3) Pure hypercholesterolemia: Code(s): E78.00 - Pure hypercholesterolemia, unspecified Category: Medical (4) Hypothyroidism: Code(s): E03.9 - Hypothyroidism, unspecified Category: Medical Qualifiers: Hypothyroidism type: acquired Qualified Code(s): E03.9 - Hypothyroidism, unspecified (5) Osteoporosis: Code(s): M81.0 - Age-related osteoporosis without current pathological fracture Category: Medical Qualifiers: Osteoporosis type: age-related Presence of current pathological fracture: without current pathological fracture Qualified Code(s): M81.0 - Age-related osteoporosis without current pathological fracture Plan A daily regimen of propranolol is recommended for headache prevention, as the patient has tolerated it previously. Sumatriptan remains available for acute headache episodes. Magnesium oxide is introduced as supplemental therapy with the potential to assist with headache control, noting the possibility of gastrointestinal side effects. The patient should continue dietary modifications and exercise to address elevated cholesterol, with her levels re-evaluated in four months to determine the effectiveness of lifestyle changes or the need for medication. Patient was informed and verbally consented to the use of an ambient scribe for clinic note documentation during this visit. I discussed with the patient the diagnosis of tension-type headaches and the plan for management, emphasizing benefits and potential side effects of propranolol. Benefits include reduced headache frequency without expected interactions with current medications. Sumatriptan will manage acute episodes. Magnesium oxide might assist in headache control, despite potential minor risks like diarrhea. We discussed dietary changes and physical activity to address her elevated cholesterol, agreeing on monitoring the impact over four months before considering medication. The patient understands the plan, agrees, and noted her active role in lifestyle modifications. Orders: Orders Lipid Panel 4 Months E78.5 - Hyperlipidemia, unspecified Thyroid Stimulating Hormone 4 Months E03.9 - Hypothyroidism, unspecified Comprehensive [place]. Panel Fast 4 Months E78.00 - Pure hypercholesterolemia, unspecified Medications: New sumatriptan succinate do not exceed 8 doses per 24 hrs 25 mg PO Q2-4H PRN 27 tabs 1RF migraine headache 90 days magnesium oxide 420 mg PO BEDTIME 90 tabs 1RF 90 days Changed From propranolol 20 mg PO BID PRN Anxiety To propranolol 20 mg PO BID 180 tabs 1RF 90 days Patient Instructions: - Start daily propranolol as prescribed for headache prevention. - Continue to use sumatriptan as needed for acute headache relief. - Consider taking magnesium oxide at bedtime, aware it may cause soft stools. - Maintain a balanced diet, focusing on limiting dairy intake, and continue regular exercise. - Follow up cholesterol testing in four months; aim for dietary modifications. - Reach out if headaches worsen or other symptoms arise.
[2024-06-12 07:49] VITALS: BP 122/70; BMI 23.6
== END 2024-06-12 08:29 | disposition home or self-care (01) ==
LOC: HO.HMCH 07:42
PROVIDERS: PCP Internal Medicine; Visit Provider Internal Medicine
DX: G44.219 Episodic tension-type headache, not intractable (principal); F32.0 Major depressive disorder, single episode, mild; E78.00 Pure hypercholesterolemia, unspecified; E03.9 Hypothyroidism, unspecified; M81.0 Age-related osteoporosis without current pathological fracture

== ENCOUNTER → 2024-06-12 07:41 | Outpatient (BNVA) | payer MEDICARE, OTHER, SELFPAY | PROVIDERS: PCP Internal Medicine; Visit Provider Internal Medicine | DX: G44.219 Episodic tension-type headache, not intractable (principal); F32.0 Major depressive disorder, single episode, mild; E78.00 Pure hypercholesterolemia, unspecified; E03.9 Hypothyroidism, unspecified; M81.0 Age-related osteoporosis without current pathological fracture | CPT/HCPCS: 96127; 99212 ==

== ENCOUNTER 2024-07-19 08:23 | Outpatient (AMB) | payer MEDICARE, OTHER, SELFPAY ==
--- NOTE | 2024-07-19 08:33 | MHC.OFFVIS ---
Vital Signs 07/19/24 08:38 Height 5 ft 5 in Weight 146 lb BMI 24.3 Intake Visit Reasons: Pre-Rt Dupuytrens 07/24/24 Intake Note: Jenelle 74 year old female presents today for her pre op visit for her right hand dupuytrens repair that is scheduled for 07/24/[address] [place]. Consent signed and all questions have been answered. Allergies No Known Allergies Allergy (Verified 07/19/24 08:34) HPI HPI Pre-Rt Dupuytrens 07/24/24: Details: Jenelle is a 74 year old right hand dominant woman who returns to discuss her right hand Dupuytrens contractures She continues to have contractures of her right index & middle fingers. She denies any stiffness or tightness in her left hand. She denies any falls or known injury. She denies any numbness or tingling. She denies any locking or catching. She works as a therapist. [facility] Medical History (Updated 07/19/24 @ 14:55 by Uma Cid RN) Right hip pain Pure hypercholesterolemia Constipation by delayed colonic transit Mild major depression, single episode MEHRAN (generalized anxiety disorder) Mass of right hand Dyslipidemia Hip pain Vitamin D deficiency History of breast cancer Osteoporosis Depression with anxiety Hypothyroidism Surgical History (Updated 07/19/24 @ 14:55 by Uma Cid RN) H/O colonoscopy Cataract extraction status of eye History of left hip replacement History of lumpectomy of right breast History of section History of hip replacement Family History Father FH: prostate cancer Mother Stroke Hypertension Osteoporosis Sister COPD (chronic obstructive pulmonary disease) Social History Housing: House Are you a primary animal care technician to a significant other at home: No Alcohol intake: current Alcohol intake frequency: holidays/special occasions only Alcohol type: wine Patient Tobacco Use Status: Never used Tobacco e-Cigarette/Vaping Use: Never Used Second Hand Smoke Exposure: No Advance Directives Date on File: 10/08/20 service: No Current occupational status: employed Current occupation: rt handed Current occupational exposures/hazards: No Cognitive needs: No Hearing needs: No Vision needs: Yes Physical Exam Vital Signs: BMI result Body Mass Index 24.3 Extrem Other: Evaluation of Right Upper Extremity: The patient is alert, oriented, and in no acute distress Neuro: Median, Ulnar, Radial nerves motor and sensory intact and sensation is normal to the tips of all digits Vascular: Cap refill brisk ROM: She can bring her fingers closed to a fist No locking or catching She can fully extend her thumb, ring, and small fingers She is unable to place her hand flat on the table There is a Dupuytrens cord extending from the mid-palm into the 2nd webspace, with a cord extending into both the index & middle fingers Index MCP 25/PIP 0 Middle finger: MCP 20/PIP 0 Assessment & Plan Assessment & Plan (1) Dupuytren's contracture of right hand: Comment: IF & MF Code(s): 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 Right Index finger Dupuytrens contracture MCP 25/PIP 0 2. Right middle finger Dupuytrens contracture MCP 20/PIP 0 With a cord extending from the mid-palm into the 2nd webspace I educated her about this condition I discussed operative and non-operative treatment options The patient would like to proceed with surgery. The risks and benefits of operative treatment were discussed with the patient and the patient wishes to proceed with surgery. These risks include, but are not limited to risk of damage to blood vessels, nerves, tendons, infection, recurrence, incomplete relief of preoperative symptoms, persistent pain, possible need for further surgery and the risks associated with regional blocks and anesthesia. The plan is to take the patient to the operating room sometime on 07/24/24 for the following procedures: 1. Right index finger partial dupuytrens fasciectomy, under general 2. Right middle finger partial dupuytrens fasciectomy, under general All of the preoperative paperwork including the consent was reviewed today. All the patient's questions were answered. The patient understands that they will be contacted by our plastic surgery manager soon to schedule this procedure She will need a same day appointment with OT hand therapy following her first post-op visit, to have a custom finger splint made She denies Diabetes, blood thinners, asthma, heart, lung, kidney issues Scribed for Marian [place] MD by Aman Curtis registered medical assistant, on 07/19/24 at 8:45 AM, EST. Coding Level of Care Code Est Pt Level 4 (73003) Diagnoses Dupuytren's contracture of right hand M72.0
[2024-07-19 08:38] VITALS: BMI 24.3
--- OUTSIDE RECORDS SUMMARY | 2024-07-19 08:39 | XMS_ITS | Clinical Summary ---
Author Organization [facility] Address [address] [place] [address] Care Team Providers Care Fashion Director Name Role Phone Unavailable Primary Care Provider [...]
--- OUTSIDE RECORDS SUMMARY | 2024-07-19 08:39 | XMS_ITS | Clinical Summary ---
Author Organization [facility] Address [address] [place] [address] Phone Care Team Providers Care Physicians And Surgeons Name Role Phone Brittney Cruz MD Primary Care Provider [phone] Allergies No known active allergies Medications aspirin [...] 1:15 PM EST Office Visit General Surgery [address] [place] [address] Johnnie Harrell MD History of [...] 8:15 AM EST Office Visit General Surgery [facility] [address] [facility] [address] [place] [address] Johnnie Harrell MD [address] [facility] [address] [place] [address] Health Maintenance Due Date Last Done Comments Colorectal Cancer Screening: Colonoscopy 02/22/2022 Depression Screening 02/22/2022 Falls Risk Assessment 02/22/2022 Hepatitis C Screening 02/22/2022 Medicare Annual Wellness Visit 02/22/2022 Osteoporosis Screening (Bone Density Screening) 02/22/2022 Social Influencers of Health Screening 02/22/2022 IPV Vaccines (2 of 3 - Adult catch-up series) 2024 03/21/2024 COVID-19 Vaccine (9 - Pfizer risk 2023- season) 2024 12/31/2023, 12/22/2022, 07/13/2022, Additional history exists Breast Cancer Screening 01/24/2026 01/25/20, 12/01/2022, 11/18/2021, Additional history exists RSV Immunization Adult Patients (1 - 1-dose 75+ series) 2026 DTaP,Tdap,and Td Vaccines (3 - Td or Tdap) 01/23/2034 01/24/2024, 09/07/2014 Zoster Vaccines Completed 11/03/2019, 03/23, 12/21/2016 Pneumococcal Vaccine: 50+ Years Completed 12/25/2019, 07/20/2016 Influenza Vaccine Completed 12/31/2023, , 02/10/2022, Additional [...] Signed Date: 01/25/2024 08:25 ET Workstation ID: [id number] Transcribed By: Self Edit Transcribed Date: 01/25/2024 [...] SCREENING. Personal history of breast cancer. Right [id number]. Radiation and TAMOXIFEN. COMPARISON: 12/01/2022, 11/18/2021, 11/14/2020, 10/31/2019 TECHNIQUE: Synthesized CC and MLO projections of each breast.Tomosynthesis of each breast in the CC and MLO projections. 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 TISSUE DENSITY: There are scattered [...] Signed Date: 01/25/2024 08:25 ET Workstation ID: [id number] Transcribed By: Self Edit Transcribed Date: 01/25/2024 08:18 ET us Self Referral Sppl IMG BI PROCEDURES Final Resul t from Last 3 Months or Most Recently Relevant to Health Maintenance Insurance MEDICARE Care Teams Physicians And Surgeons Relationship Specialty Start Date End Date Brittney Cruz MD [address] [place] [address] , [address] Physician Associ D/B/A: [facility] [place] Ding PCP - General Internal Medicine 04/05/18
== END 2024-07-19 09:00 | disposition home or self-care (01) ==
LOC: HO.HOS 08:24
PROVIDERS: PCP Internal Medicine; Visit Provider Orthopaedic Surgery
DX: M72.0 Palmar fascial fibromatosis [Dupuytren] (principal)
CPT/HCPCS: 99024

== ENCOUNTER → 2024-07-19 08:23 | Outpatient (BNVA) | payer MEDICARE, OTHER, SELFPAY | PROVIDERS: PCP Internal Medicine; Visit Provider Orthopaedic Surgery | DX: M72.0 Palmar fascial fibromatosis [Dupuytren] (principal) | CPT/HCPCS: 99212 ==

== ENCOUNTER 2024-07-24 07:09 | Day surgery (SDC) | payer MEDICARE, OTHER, SELFPAY ==
--- OUTSIDE RECORDS SUMMARY | 2024-06-28 15:50 | XMS_ITS | Clinical Summary ---
Author Organization [facility] Address [address] [place] [address] Phone Care Team Providers Care Gas Compressor Turbine Operator Name Role Phone Brittney Cruz MD Primary Care Provider [phone] Allergies No known active allergies Medications aspirin 325 mg EC tablet Take 1 tablet (325 mg total) by mouth 2 (two) times a day. START AFTER SURGERY 11/14/2020 Active citalopram (CeleXA) 20 mg tablet 12/03/2020 Active levothyroxine (SYNTHROID, LEVOTHROID) 100 mcg tablet 12/03/2020 Active propranoloL (INDERAL) 20 mg tablet 01/19/2023 Active alendronate (FOSAMAX) 70 mg tablet Take 1 tablet (70 mg total) by mouth. Active Active Problems Problem Noted Date Diagnosed Date Hypothyroidism 08/26/2018 Osteopenia 08/26/2018 Overview (01/26/2024): 04/2012 Dexascan: T score spine -1.5, hip -2.1 Encounters Date Type Department Care Team Description 05/08/2024 1:15 PM EST Office Visit General Surgery [address] [place] [address] Johnnie Harrell MD History of right breast cancer (Primary Dx); History of partial mastectomy of right breast; Encounter for screening mammogram for malignant neoplasm of breast from Last 3 Months Surgical History Surgery Date Site/Laterality Comments BREAST [...] on file Sexual Orientation Not on file Obstetrics History Para Term AB IAB SAB Ectopic Multiple Livin g Live Births 3 Last Filed Vital Signs Vital Sign Reading Time Taken Comments Blood Pressure 134/59 05/08/2024 12:55 PM EST Pulse 82 05/08/2024 12:55 PM EST Temperature - - Respiratory Rate - - Oxygen Saturation - - Inhaled Oxygen Concentration - - Weight 67.6 kg (149 lb) 05/08/2024 12:55 PM EST Height 170.2 cm (5' 7 ) 05/08/2024 12:55 PM EST Body Mass Index 23.34 05/08/2024 12:55 PM EST Plan of Treatment Upcoming Encounters Date Type Department Care Team (Late st Contact Info) Description 05/21/2025 8:15 AM EST Office Visit General Surgery [facility] [address] [facility] [address] [place] [phone] Johnnie Harrell MD [address] [facility] [address] [place] [address] Health Maintenance Due Date Last Done Comments Colorectal Cancer Screening: Colonoscopy 02/21/2022 Depression Screening 02/21/2022 Falls Risk Assessment 02/21/2022 Hepatitis C Screening 02/21/2022 Medicare Annual Wellness Visit 02/21/2022 Osteoporosis Screening (Bone Density Screening) 02/21/2022 Social Influencers of Health Screening 02/21/2022 IPV Vaccines (2 of 3 - Adult catch-up series) 2024 03/21/2024 Breast Cancer Screening 01/24/2026 01/25/20, 12/01/2022, 11/18/2021, Additional history exists RSV Immunization Adult Patients (1 - 1-dose 75+ series) 2026 DTaP,Tdap,and Td Vaccines (3 - Td or Tdap) 01/23/2034 01/24/2024, 09/07/2014 Zoster Vaccines Completed 11/03/2019, 03/23, 12/21/2016 Pneumococcal Vaccine: 50+ Years Completed 12/25/2019, 07/20/2016 COVID-19 Vaccine Completed 12/31/2023, 05/2022, 07/13/2022, Additional history exists Influenza Vaccine Completed 12/31/2023, , 02/10/2022, Additional history exists Hepatitis A Vaccines Aged Out 01/24/2024, 10/26/2007, 02/22/2007, Additional history exists No longer eligible based on patient's age to complete this topic Hepatitis B Vaccines Completed 03/31/2024, 10/26/2007, 02/22/2007, Additional history exists HIB Vaccines Aged Out No longer eligi [...] age to complete this topic Meningococcal B Vaccine Aged Out No l onger eligible based on patient's age to complete [...] Signed Date: 01/25/2024 08:25 ET Workstation ID: [id number] Transcribed By: Self Edit Transcribed Date: 01/25/2024 08:18 ET Narrative 01/25/2024 8:25 AM EST EXAM: ??SCREENING MAMMOGRAPHY, BILATERAL HISTORY: ??SCREENING. ??Personal history of breast cancer. ??Right lumpectomy 2008. ??Radiation and TAMOXIFEN. COMPARISON: ??12/01/2022, 11/18/2021, 11/14/2020, [...] SCREENING. Personal history of breast cancer. Right [id number]. Radiation and TAMOXIFEN. COMPARISON: 12/01/2022, 11/18/2021, 11/14/2020, 10/31/2019 TECHNIQUE: Synthesized CC and MLO projections of each breast.Tomosynthesis of each breast in the CC and MLO projections. 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 TISSUE DENSITY: There are scattered [...] Signed Date: 01/25/2024 08:25 ET Workstation ID: [id number] Transcribed By: Self Edit Transcribed Date: 01/25/2024 08:18 ET us Self Referral Sppl IMG BI PROCEDURES Final Resul t from Last 3 Months or Most Recently Relevant to Health Maintenance Insurance MEDICARE Care Teams Gas Compressor Turbine Operator Relationship Specialty Start Date End Date Brittney Cruz MD 2 [facility] , [address] Physician Associ D/B/A: [facility] [place] Ding PCP - General Internal Medicine 04/05/18
--- OUTSIDE RECORDS SUMMARY | 2024-06-28 15:50 | XMS_ITS | Data Portability ---
Author Organization [place] - [facility], [facility] Address [address] [place] [address] Assessment Encounter Date Assessment Date Assessment LastModified [...] MIGRAINE HEADACHE. DO NOT EXCEED 8 DOSES MS 24 HOURS active Not Available Not Available [...] Updated DateTime 10/15/2023 170.18 cm 22.7 kg/m2 19131.89 g AIMEE AKBAR [place] - [facility] 10/15/2023 10:42:46 Social History None recorded. Functional Status None recorded. Mental Status None recorded. Family History Nothing Reported. Medical History No medical history recorded. Gynecological HistoryNo gynecological history recorded. Obstetrics History GPAL:G 0 P 0 0 0 0 Past Encounters Encounter ID Performer Location Encounter Start Date Encounter Closed Date Diagnosis/Indication Diagnosis SNOMED-CT Code Diagnosis ICD10 Code Diagnosis Note [id number] MD Rom[facility] Romo [address] [place] [address] 10/15/2023 10:00:31 11/02/2023 12:59:14 Dupuytren's disease of palm 987903390 M72.0 Health Concerns Section Related Observation LastModified by Organization Detai ls LastModified Time None Recorded Concern Status LastModified by Organization Details LastModified Time None Recorded Advance Directives Directive None Recorded Payers Encounter Date Sequence Insurance Name Policy Number Policy Mandujano Covered Member ID Mandujano Member ID Guarantor Name 10/15/2023 2 [employer] - FOR LIFE (MEDICARE SUPPLEMENT) Jenelle Griffith [id number] Jenellearianne Griffith 10/15/2023 1 [place]IC[place] B-[place]: [employer] Jenellearianne Griffith [id number] Jenelle Gladis Notes Date Note Type Note Provider Name and Address Organization Details Recorded Time 10/15/2023 text/html 73 yo RHD female seen for initial eval of developing R palm Dupuytren's contracture, 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 Has noted developing tightening and contracture development over the past year. Denies numbness or tingling. Denies pain. Uma Chong MD [facility] [address], [place], [place], [address], [facility] - [facility] 10/15/2023 11:33:19 OBGyn Episode No OBEpisode recorded.
--- OUTSIDE RECORDS SUMMARY | 2024-06-28 15:51 | XMS_ITS | Patient Health Record ---
Author Organization [facility] Address [address] [place] [phone] Care Team Providers Care Manufacturing Assistant Name Role Phone Brittney Figueroa Primary Care Provider Ankur Miramontes Jr Unavailable Allergies No Known Allergies Reason For Referral No Information Medications Medication SIG (Take, Route, Fr equency, Duration) Notes Start Date End Date Status Fish Oil Active Multi Vitamin Daily Active Levothyroxine Sodium Active Vitamin C Active Prolia 60 MG/ML as directed Subcutaneous Active Calcium Active Citalopram Hydrobromide Active Immunizations Vaccine Route Administration Date Status Comme nts Influenza Unknown 01/03/2020 Administered Influenza Unknown 02/10/2022 Administered Problems Problem Type SNOMED Code ICD Code Onset Dates Problem Status W/U Status Risk Notes Problem 189021770 Colon cancer screening (Z12.11) Active confirmed Problem 541735347 Abdominal bloati ng (R14.0) Active confirmed Problem 54154230 Constipation, unspecified constipation type (K59.00) Active confirmed Problem 84662146 Other specified pre-operative examination (Z01.818) Active confirmed Problem 049792648 Long-term curren t use of high risk medication other than anticoagulant (Z79.899) Active confirmed Problem 53665170 Pelvic pain (R10.2) Active confirmed Problem 90063402 Abdominal discomfort (R10.9) Active confirmed Plan Of Treatment Future Test Test Name Order Date COLONOSCOPY 01/25/2015 COLONOSCOPY 07/01/2020 Insurance Providers Payer Name Payer Address Payer Phone Subscriber Number Group Number Insured Name Patient Relationship to Insured Coverage Start Date Coverage End Date MEDICARE OF [place] [address] JANELLE RODRIGUEZ [id number] DENILSON NINO Self - patient is the insured FOR LIFE [address] [place] [address] [id number] DENILSON NINO Self - patient is the insured Medical (General) History Medical History History ICD Code Colonoscopy 10/08/20, hyperpl astic polyp, ten-year followup optional based on age anxiety/depression elevated cholesterol Osteoporosis Hypothyroidism Surgical History Surgery Date(Month/Year) total hip replacement, right 2010 lumpectomy, right breast total hip replacement, left 11/09
[2024-07-19 15:02] VITALS: BMI 24.3
[2024-07-19 15:12] VITALS: BMI 24.3
--- NOTE | 2024-07-20 10:20 | P.CONAN_ITS ---
Documented by User: Suzie Burrell NP 07/20/24 10:22 HPI - Anesthesia Eval Consult details Narrative: 74yo F for RIGHT Index Finger partial Dupuytrens Fasciectomy,RIGHT Middle Finger partial Dupuytrens Fasciectomy PMFSH Active Problems Active Problems: All Active Problems Tension-type headache (Acute) Dupuytren's contracture of right hand (Acute) Subcutaneous mass of right hand (Acute) Physical exam (Acute) Strain of left inguinal muscle (Acute) Right hip pain (Acute) Pure hypercholesterolemia (Acute) Constipation by delayed colonic transit (Acute) Mild major depression, single episode (Acute) MEHRAN (generalized anxiety disorder) (Acute) Mass of right hand (Acute) Hip pain (Acute) Vitamin D deficiency (Acute) Pelvic pain in female (Acute) Osteoporosis (Acute) Hypothyroidism (Acute) Past Medical History Medical History Right hip pain Pure hypercholesterolemia Constipation by delayed colonic transit Mild major depression, single episode MEHRAN (generalized anxiety disorder) Mass of right hand Dyslipidemia Hip pain Vitamin D deficiency History of breast cancer Osteoporosis Depression with anxiety Hypothyroidism Family History Family History Father FH: prostate cancer Mother Stroke Hypertension Osteoporosis Sister COPD (chronic obstructive pulmonary disease) Family history of problems with anesthesia: No Surgical History Surgical History H/O colonoscopy Cataract extraction status of eye History of left hip replacement History of lumpectomy of right breast History of section History of hip replacement History of Problems with Anesthesia: No Social History Social History Housing: House Are you a primary health and social care teacher to a significant other at home: No Alcohol intake: current Alcohol intake frequency: holidays/special occasions only Alcohol type: wine Patient Tobacco Use Status: Never used Tobacco e-Cigarette/Vaping Use: Never Used Second Hand Smoke Exposure: No Use of substances other than those prescribed or required for medical reasons: No Have you been hit, kicked, punched, or otherwise hurt by someone within the past year? If so, by whom?: No Spiritual Healthcare Practices: no Christian Healthcare Practices: no-Christian Cultural Healthcare Practices: no Advance Directives: Yes Advance Directives Information Provided: Yes Advance Directives on File: Yes Advance Directives Date on File: 10/08/20 FDLMP: n/a Poor oral hygiene: No service: No Current occupational status: employed Current occupation: rt handed Current occupational exposures/hazards: No Cognitive needs: No Hearing needs: No Vision needs: Yes Meds Allergies Allergy/AdvReac Type Severity Reaction Status Date / Time No Known Allergies Allergy Verified 07/24/24 07:38 Home Medications ?Medication ?Instructions ?Recorded ?Confirmed ?Last Taken ?Type aspirin 81 mg tablet,delayed 81 mg PO DAILY 01/04/20 07/24/24 07/21/24 History release (Adult Low Dose Aspirin) omega 4-qwh-ahv-fish oil 60 mg-90 1 cap PO DAILY 06/19/21 07/24/24 Unknown History mg-500 mg capsule (Fish Oil) propranolol 20 mg tablet 20 mg PO BID 07/19/24 07/24/24 Unknown History Exam Height,Weight and Vital Signs: Height 5 ft 5 in Weight 66.224 kg Pertinent Lab Results Pertinent Lab Results: Laboratory Tests 03/24/24 13:48 Sodium 142 Potassium 4.2 Chloride 108 Carbon Dioxide 27 BUN 23 H Creatinine 0.89 Assessment and Plan Assessment Anesthesia Assessment: Chart Reviewed Final Anesthetic Review Family History of Problems with Anesthesia: No History of Problems with Anesthesia: No Documented by User: Lily Brown MD 07/24/24 08:41 [facility] Past Medical History Medical History Right hip pain Pure hypercholesterolemia Constipation by delayed colonic transit Mild major depression, single episode MEHRAN (generalized anxiety disorder) Mass of right hand Dyslipidemia Hip pain Vitamin D deficiency History of breast cancer Osteoporosis Depression with anxiety Hypothyroidism Family History Family History Father FH: prostate cancer Mother Stroke Hypertension Osteoporosis Sister COPD (chronic obstructive pulmonary disease) Surgical History Surgical History H/O colonoscopy Cataract extraction status of eye History of left hip replacement History of lumpectomy of right breast History of section History of hip replacement Social History Social History Housing: House Are you a primary health and social care teacher to a significant other at home: No Alcohol intake: current Alcohol intake frequency: holidays/special occasions only Alcohol type: wine Patient Tobacco Use Status: Never used Tobacco e-Cigarette/Vaping Use: Never Used Second Hand Smoke Exposure: No Use of substances other than those prescribed or required for medical reasons: No Have you been hit, kicked, punched, or otherwise hurt by someone within the past year? If so, by whom?: No Spiritual Healthcare Practices: no Christian Healthcare Practices: no-Christian Cultural Healthcare Practices: no Advance Directives: Yes Advance Directives Information Provided: Yes Advance Directives on File: Yes Advance Directives Date on File: 10/08/20 FDLMP: n/a Poor oral hygiene: No service: No Current occupational status: employed Current occupation: rt handed Current occupational exposures/hazards: No Cognitive needs: No Hearing needs: No Vision needs: Yes Meds Allergies Allergy/AdvReac Type Severity Reaction Status Date / Time No Known Allergies Allergy Verified 07/24/24 07:38 Home Medications ?Medication ?Instructions ?Recorded ?Confirmed ?Last Taken ?Type aspirin 81 mg tablet,delayed 81 mg PO DAILY 01/04/20 07/24/24 07/21/24 History release (Adult Low Dose Aspirin) omega 8-cjn-vjn-fish oil 60 mg-90 1 cap PO DAILY 06/19/21 07/24/24 Unknown History mg-500 mg capsule (Fish Oil) propranolol 20 mg tablet 20 mg PO BID 07/19/24 07/24/24 Unknown History Exam Airway Mallampati Class: II TM Dist: >3cm Neck ROM: Full Assessment and Plan Assessment Anesthesia Assessment: Anesthesia Plan Discussed Final Anesthetic Review NPO: Yes ASA Class: II Final Preanesthetic Review: No Changes in Pt Med Stat, Meds/Allgs Chart Reviewed, Consent Obtained/Reviewed and Anes Risks/Benef Reviewed Patient Risk: Intermediate Procedure Risk: Low Anesthetic Plan Anesthetic Plan: GA Disposition: Standard PACU
[2024-07-24 08:15] VITALS: BP 131/76; PULSE 64; RESP 14; TEMP 36.6; O2SAT 99
[2024-07-24] MEDS: Lactated Ringers 1,000 ML 100 ML IVCONT (08:15)
--- NOTE | 2024-07-24 10:32 | MHC.SHP ---
Pre-Procedural Eval Section A - 24 Hr Update-Section A only Date of Service: 07/24/24 The patient is an INPATIENT: No Changes since office visit: No Cold of Flu in the past 2 weeks, No New Medical Problems, No Changes in Medication and No Patient answered all questions The patient has been examined within 24 hours of the surgical procedure. The History & Physical has been completed within 30 days and I have reviewed it.: Yes Section B - Complete if H&P > 30 days Chief Complaint: Palmar fascial fibromatosis [Dupuytren] Allergies: Allergies Allergy/AdvReac Type Severity Reaction Status Date / Time No Known Allergies Allergy Verified 07/24/24 07:38 Plan I have reviewed the history and physical and performed a pertinent physical examination on my patient. No changes have occurred unless specified. Time Spent With Patient Time: Total time managing care of this patient today ____ minutes.
--- NOTE | 2024-07-24 10:33 | W.PM.OPN ---
Operative Note Operative Note Date of Service: 07/24/24 Narrative: Preop diagnosis: 1. Right index finger Dupuytren's contracture 2. Right middle finger Dupuytren's contracture Postop diagnosis: Same Procedure: 1. Right index finger Partial Dupuytren's fasciectomy 2. Right middle finger partial Dupuytren's fasciectomy in the palm only Surgeon: Marian Hall MD Boarding House Cook: None Anesthesia: General anesthesia plus regional block Findings: Dupuytren's cord extending from the palm to the proximal phalanx of the right index finger. Another cord extended off of the palmar cord extending to the proximal phalanx of the middle finger. Full extension at the MCP, PIP and D IP joints of the index and middle fingers after partial Dupuytren's fasciectomies. Implants: None Tourniquet time: 55 minutes EBL: 5.0 ml Specimen: Dupuytren's cords Drains: None Complications: None Disposition: Brought to the recovery room in stable condition Plan: Follow-up in 10-14 days for wound check, suture removal and to check pathology OT appt on day of f/u to make a custom night spint and to begin OT Indications: The patient is 74 years old with Dupuytren's contractures affecting the MCP joints of the right index and middle fingers . The risks and benefits of operative treatment, including but not limited to risk of damage to blood vessels, nerves, tendons, infection, recurrence, persistent pain or numbness, incomplete resolution of preoperative symptoms, or need for further surgery were discussed with the patient and they wished to proceed with surgery. Procedure: Once consent was obtained patient was brought back to the operating suite and placed in the operating table in a supine position. . Perioperative antibiotics and anesthesia was administered by the anesthesia team. A tourniquet was applied to the proximal aspect of the right upper extremity and the limb was prepped and draped in a standard surgical fashion. The limb was elevated exsanguinated with Esmarch bandage and the tourniquet inflated to 250 mm of mercury for a total tourniquet time of 55 minutes. I made an interrupted Andrea type incision extending along the Dupuytren's cord from the mid palm to the mid proximal phalanx of the right index finger. The Andrea incision in the palm was continued also towards the middle finger extending to the palmar digital crease. The incisions were made with a 15. Blade through the skin the subcutaneous tissues. I then carefully dissected down to the level of the Dupuytren's cord beginning at the proximal aspect of the incision. This was done using tenotomy and iris scissors. Care was taken to protect the nearby neurovascular structures. Using the distal portion of the interrupted Andrea's incision to the index finger I dissected down to the level of the Dupuytren's cord which passed along the ulnar aspect of the digit, then extending more centrally in the digit as it passed distal to the palmar digital crease. While protecting the neurovascular bundle this portion of the Dupuytren's cord was carefully excised using tenotomy and iris scissors under direct visualization. It was placed on the back table. I then turned my attention back to the Dupuytren's cord in the palm as it extended to the middle finger. The Dupuytren's cord was cut at its proximal aspect using tenotomy scissors. It was then grasped with an Allis clamp. The Dupuytren's cord was then carefully dissected free in a proximal to distal direction using tenotomy scissors and again taking care to protect the nearby neurovascular structures. This cord was dissected free from the flexor tendon sheath and skin as it extended to the proximal phalanx to the point of the palmar digital crease. Cord was then excised and placed on the back table to be sent for histopathology. At this point both the index finger and middle finger could be fully extended at the MCP, PIP and D IP joints. The tourniquet was deflated and hemostasis obtained with a brief period of local pressure . The wounds were copiously irrigated with normal saline. The skin edges were reapproximated with 5-0 Prolene suture. The wounds were infiltrated with some 1% lidocaine with epinephrine for postop pain control and a sterile dressing was applied. The patient appears to have tolerated the procedure well and with no complications. All digits were well vascularized conclusion of the case
[2024-07-24] MEDS: ceFAZolin Sodium/Dextrose,Iso 2 GM/50 ML PIGGYBACK IV (10:40)
[2024-07-24] MEDS: Acetaminophen 1,000 MG/100 ML PIGGYBACK 400 MG IV (10:56)
[2024-07-24 12:29] VITALS: BP 129/75; PULSE 75; RESP 16; TEMP 36.2; O2SAT 100
[2024-07-24 12:34] VITALS: BP 127/69; PULSE 98; RESP 17; O2SAT 95
[2024-07-24 12:39] VITALS: BP 131/70; PULSE 88; RESP 16; O2SAT 99
[2024-07-24 12:49] VITALS: BP 127/59; PULSE 87; RESP 17; O2SAT 96
[2024-07-24 13:07] VITALS: BP 120/63; PULSE 79; RESP 18; TEMP 36.1; O2SAT 98
== END 2024-07-24 13:35 | disposition home or self-care (01) ==
PROVIDERS: PCP Internal Medicine; Visit Provider Orthopaedic Surgery
PROC: (CPT 26045; principal; 2024-07-24 09:40)
DX: M72.0 Palmar fascial fibromatosis [Dupuytren] (principal); F41.1 Generalized anxiety disorder; F32.0 Major depressive disorder, single episode, mild; E78.5 Hyperlipidemia, unspecified; E03.9 Hypothyroidism, unspecified; E55.9 Vitamin D deficiency, unspecified; Z85.3 Personal history of malignant neoplasm of breast; M81.0 Age-related osteoporosis without current pathological fracture; Z79.82 Long term (current) use of aspirin; Z79.899 Other long term (current) drug therapy; Z96.643 Presence of artificial hip joint, bilateral; Z98.890 Other specified postprocedural states
CPT/HCPCS: 26121; 88304; J0131; J0690; J1100; J2003; J2004; J2405; J2704; J3010

== ENCOUNTER → 2024-07-24 07:09 | Outpatient (BNV) | payer MEDICARE, OTHER, SELFPAY | PROVIDERS: PCP Internal Medicine; Visit Provider Orthopaedic Surgery | DX: M72.0 Palmar fascial fibromatosis [Dupuytren] (principal) | CPT/HCPCS: 26123; 26125 ==

== ENCOUNTER 2024-08-07 09:32 | Outpatient (AMB) | payer MEDICARE, OTHER, SELFPAY ==
--- NOTE | 2024-08-07 09:40 | MHC.OFFVIS ---
Intake Visit Reasons: PO-Rt Dupuytrens 07/24/24 Intake Note: Jenelle 74 year old - hand dominant female who presents today post-operatively status post right hand dupuytrens repair, DOS: 07/24/[address] Hall. Sutures removed in office and steri-strips applied. States she is doing well, reports no pain. Allergies No Known Allergies Allergy (Verified 08/07/24 09:50) PFSH Medical History Right hip pain Pure hypercholesterolemia Constipation by delayed colonic transit Mild major depression, single episode MEHRAN (generalized anxiety disorder) Mass of right hand Dyslipidemia Hip pain Vitamin D deficiency History of breast cancer Osteoporosis Depression with anxiety Hypothyroidism Surgical History H/O colonoscopy Cataract extraction status of eye History of left hip replacement History of lumpectomy of right breast History of section History of hip replacement Family History Father FH: prostate cancer Mother Stroke Hypertension Osteoporosis Sister COPD (chronic obstructive pulmonary disease) Social History Housing: House Are you a primary school childcare attendant to a significant other at home: No Alcohol intake: current Alcohol intake frequency: holidays/special occasions only Alcohol type: wine Patient Tobacco Use Status: Never used Tobacco e-Cigarette/Vaping Use: Never Used Second Hand Smoke Exposure: No Advance Directives Date on File: 10/08/20 service: No Current occupational status: employed Current occupation: rt handed Current occupational exposures/hazards: No Cognitive needs: No Hearing needs: No Vision needs: Yes Assessment & Plan Assessment & Plan (1) Dupuytren's contracture of right hand: Comment: IF & MF Code(s): 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 The surgery was recently conducted by Dr. Hall, and the patient has adhered to care instructions postoperatively. Currently, the incisions are healing well. The patient reports minimal discomfort described as a tightness, with no infection symptoms such as redness or discharge. She is able to extend her fingers significantly postoperatively and can form a fist, though this produces mild discomfort. The range of motion is notably improved, and sensation in the hand remains normal. A noticeable dog ear has developed near the surgical site, suggesting the need to possibly prolong suture retention, which will be confirmed during further evaluation. The patient initially refrained from washing the affected area with soap and water, following recommendations, but is now allowed to do so without submersion. Review of Systems - Musculoskeletal: Reports tightness in the hand, no significant pain requiring intervention, and improved range of motion postoperatively. - Neurological: Denies any changes in sensation; reports normal sensation in the hand. Systems reviewed and are negative except as per HPI and below Physical Exam - Musculoskeletal- Incisions from Dupuytren's contracture release show no redness, discharge, or swelling. Normal sensation in the hand. Improved range of motion with near full finger extension and ability to form a fist with slight discomfort. Notable small area of prominence over the third MC. Results Procedure - Suture Removal: Plan to proceed with alternating suture removal pending the evaluation of the surgical site for potential separation. All sutures removed without difficulty, Steri-Strips applied. Plan The current focus is on the postoperative management of Dupuytren's contracture release. The patient will attend occupational therapy for fitting of a night splint that aids in preventing stiffening of the fingers. Suture management is planned with moderation, awaiting further evaluation. Incisions are healing well, but the patient is advised on cautious post-surgical practices including cleansing without submersion. Following progress review, follow-up is anticipated in one to two weeks, contingent on healing trajectory and incision condition. Patient was informed and verbally consented to the use of an ambient scribe for clinic note documentation during this visit. Discussion Notes During this visit, I discussed with the patient the successful outcome of her Dupuytren's contracture release. I emphasized the importance of initiating occupational therapy session today to procure a custom night splint, beneficial in maintaining finger extension and preventing stiffness. I explained the procedure for suture removal and mentioned the contingency based on incisional healing and potential separation concerns that could alter the timeline of care. Washing the surgical site with soap and water is now permissible; however, I advised against immersion in water to minimize infection risk. I outlined factors influencing follow-up scheduling based on healing progress to ensure optimal recovery. Patient understanding was confirmed, and they expressed satisfaction with postoperative care guidance. Patient Instructions - Attend occupational therapy immediately after this visit for a night splint fitting. - Wear the splint at night only to prevent stiffness. - Wash the surgical area gently with soap and water, no immersion in water (e.g., no hot tubs, baths, or pools). - Avoid heavy use of the hand, including washing dishes, for at least one more week. - Return for follow-up evaluation in two weeks, based on healing and reevaluation. - Monitor the surgical site for any signs of infection such as redness, discharge, or increased swelling. 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
--- OUTSIDE RECORDS SUMMARY | 2024-08-07 09:51 | XMS_ITS | Patient Health Record ---
Author Organization [facility] [place] Address [address] [place] [address] Care Team Providers Care Assisted Living Housekeeper Name Role Phone Brittney Figueroa Primary Care [...] Problem Status W/U Status Risk Notes Problem 724603147 Colon cancer screening (Z12.11) Active confirmed Problem 379555450 Abdominal bloati ng (R14.0) Active confirmed Problem 12370272 Constipation, unspecified constipation type (K59.00) Active confirmed Problem 95370166 Other specified pre-operative examination (Z01.818) Active confirmed Problem 162634613 Long-term curren t use of high risk medication other than anticoagulant (Z79.899) Active confirmed Problem 28417012 Pelvic pain (R10.2) Active confirmed Problem 87702665 Abdominal discomfort (R10.9) Active confirmed Plan Of Treatment Future Test Test Name Order Date COLONOSCOPY 01/25/2015 COLONOSCOPY 07/01/2020 Insurance Providers Payer Name Payer Address Payer Phone Subscriber Number Group Number Insured Name Patient Relationship to Insured Coverage Start Date Coverage End Date MEDICARE OF [place] [address] JANELLE RODRIGUEZ [id number] DENILSON NINO Self - patient is the insured FOR LIFE [address] [place] [address] [phone] [id number] DENILSON NINO Self - patient is the insured Medical (General) History Medical History History ICD Code Colonoscopy 10/08/20, hyperpl astic polyp, ten-year followup optional based on age anxiety/depression elevated cholesterol Osteoporosis Hypothyroidism Surgical History Surgery Date(Month/Year) total hip replacement, right 2010 lumpectomy, right breast total hip replacement, left 11/09
--- OUTSIDE RECORDS SUMMARY | 2024-08-07 09:51 | XMS_ITS | Clinical Summary ---
Author Organization [facility] Address [address] [place] [phone] Phone Care Team Providers Care Web Design Intern Name Role Phone Brittney Cruz MD Primary Care Provider [phone] Allergies No known active allergies Medications aspirin [...] 8:15 AM EST Office Visit General Surgery - [place] [address] [facility] [address] [place] [phone] Johnnie Harrell MD [address] [facility] [place] [address] [place] [id number] Health Maintenance Due Date Last Done Comments [...] Additional history exists Breast Cancer Screening 01/24/2026 01/25/20 24, 12/01/2022, [...] Signed Date: 01/25/2024 08:25 ET Workstation ID: [id number] Transcribed By: Self Edit Transcribed Date: 01/25/2024 [...] SCREENING. Personal history of breast cancer. Right [id number]. Radiation and TAMOXIFEN. COMPARISON: 12/01/2022, 11/18/2021, 11/14/2020, [...] Signed Date: 01/25/2024 08:25 ET Workstation ID: [id number] Transcribed By: Self Edit Transcribed Date: 01/25/2024 08:18 ET us Self Referral Sppl IMG BI PROCEDURES Final Resul t from Last 3 Months or Most Recently Relevant to Health Maintenance Insurance MEDICARE Care Teams Web Design Intern Relationship Specialty Start Date End Date Brittney Cruz MD [address] [place] [address] , [address] [facility] D[facility]A: [facility] HEATHER Ding PCP - General Internal Medicine 04/05/18
--- OUTSIDE RECORDS SUMMARY | 2024-08-07 09:51 | XMS_ITS | Clinical Summary ---
Author Organization [facility] Address [address] [place] [address] Care Team Providers Care Occupational Health Technician Name Role Phone Unavailable Primary Care Provider [...]
== END 2024-08-07 10:08 | disposition home or self-care (01) ==
LOC: HO.HOS 09:33
PROVIDERS: PCP Internal Medicine
DX: M72.0 Palmar fascial fibromatosis [Dupuytren] (principal)
CPT/HCPCS: 99024

== ENCOUNTER → 2024-08-07 09:32 | Outpatient (BNVA) | payer MEDICARE, OTHER, SELFPAY | PROVIDERS: PCP Internal Medicine | DX: Z47.89 Encounter for other orthopedic aftercare (principal); Z98.890 Other specified postprocedural states | CPT/HCPCS: 99212 ==

== ENCOUNTER 2024-08-23 08:35 | Outpatient (AMB) | payer MEDICARE, OTHER, SELFPAY ==
--- OUTSIDE RECORDS SUMMARY | 2024-08-23 08:50 | XMS_ITS | Data Portability ---
Author Organization [facility] Address [address] [place] [address] Assessment Encounter Date Assessment Date Assessment LastModified [...] LastModifiedBy Organization Detail LastModifiedTime 11/19/19 24 07/29/2020 katherinei dickson/onel blanchard resul t No observ ation record ed. [email or web address] Not Available 10/22 22:29:35 Result Notes None recorded. Medical Equipment None Reported. [...] MIGRAINE HEADACHE. DO NOT EXCEED 8 DOSES IN 24 HOURS active Not Available Not Available [...] Updated DateTime 10/15/2023 170.18 cm 22.7 kg/m2 08602.89 g AIMEE AKBAR [place] - [facility] 10/15/2023 10:42:46 Social History None recorded. Functional Status None recorded. Mental Status None recorded. Family History Nothing Reported. Medical History No medical history recorded. Gynecological HistoryNo gynecological history recorded. Obstetrics History GPAL:G 0 P 0 0 0 0 Past Encounters Encounter ID Performer Location Encounter Start Date Encounter Closed Date Diagnosis/Indication Diagnosis SNOMED-CT Code Diagnosis ICD10 Code Diagnosis Note [id number] MD Rommel Romo [address] [place] [address] 10/15/2023 10:00:31 11/02/2023 12:59:14 Dupuytren's disease of palm 836167437 M72.0 Health Concerns Section Related Observation LastModified by Organization Detai ls LastModified Time None Recorded Concern Status LastModified by Organization Details LastModified Time None Recorded Advance Directives Directive None Recorded Payers Encounter Date Sequence Insurance Name Policy Number Policy Mandujano Covered Member ID Mandujano Member ID Guarantor Name 10/15/2023 2 FOR LIFE ( - MEDICARE SUPPLEMENT) Jenelel Griffith [id number] Jenelle Griffith 10/15/2023 1 MEDICARE B-[place]: [facility] Jenelle Griffith [id number] Jenelle Griffith Notes Date Note Type Note Provider Name and Address Organization Details Recorded Time 10/15/2023 text/html 73 yo RHD female seen for initial eval of developing R palm Dupuytren's contracture, 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 Has noted developing tightening and contracture development over the past year. Denies numbness or tingling. Denies pain. Uma Chong MD [address] [place] [address] [address], [place], [address], [facility] 10/15/2023 11:33:19 OBGyn Episode No OBEpisode recorded.
--- NOTE | 2024-08-23 08:55 | A.OFFVIS_ITS ---
Intake Visit Reasons: PO-Rt Dupuytrens 07/24/24 Intake Note: Jenelle is a 74 year old right hand dominant female who presents today post operatively s/p Right index finger Partial Dupuytren's fasciectomy and right middle finger partial Dupuytren's fasciectomy in the palm only DOS: 07/24/[address] Marian Hall. She states she started occupational therapy and has one after orthopedics visit. Reports she does feels improved in ROM and strength. States palmar aspect is still sore from surgery. She is able to make full closed fist. Her symptoms have resolved since her surgery. Right palm still swollen, wants to make sure everything is okay. Allergies No Known Allergies Allergy (Verified 08/23/24 09:03) HPI HPI PO-Rt Dupuytrens 07/24/24: Details: Jenelle is a 74 year old right hand dominant female who presents today post operatively s/p Right index finger Partial Dupuytren's fasciectomy and right middle finger partial Dupuytren's fasciectomy in the palm only DOS: 07/24/[address] Marian Hall. She states she started occupational therapy and has one after orthopedics visit. Reports she does feels improved in ROM and strength. States palmar aspect is still sore from surgery. She is able to make full closed fist. Her symptoms have resolved since her surgery. Right palm still swollen, wants to make sure everything is okay. [facility] Medical History Right hip pain Pure hypercholesterolemia Constipation by delayed colonic transit Mild major depression, single episode MEHRAN (generalized anxiety disorder) Mass of right hand Dyslipidemia Hip pain Vitamin D deficiency History of breast cancer Osteoporosis Depression with anxiety Hypothyroidism Surgical History H/O colonoscopy Cataract extraction status of eye History of left hip replacement History of lumpectomy of right breast History of section History of hip replacement Family History Father FH: prostate cancer Mother Stroke Hypertension Osteoporosis Sister COPD (chronic obstructive pulmonary disease) Social History Housing: House Are you a primary personal care aide to a significant other at home: No Alcohol intake: current Alcohol intake frequency: holidays/special occasions only Alcohol type: wine Patient Tobacco Use Status: Never used Tobacco e-Cigarette/Vaping Use: Never Used Second Hand Smoke Exposure: No Advance Directives Date on File: 10/08/20 service: No Current occupational status: employed Current occupation: rt handed Current occupational exposures/hazards: No Cognitive needs: No Hearing needs: No Vision needs: Yes Assessment & Plan Assessment & Plan (1) Dupuytren's contracture of right hand: Comment: IF & MF Code(s): M72.0 - Palmar fascial fibromatosis [Dupuytren] Category: Medical Plan History of Present Illness The patient is a 74-year-old female presenting for a postoperative follow-up regarding her hand surgery. The consultation focused on her recovery, highlighting her participation in ongoing therapy. Notably, she has been able to extend her hand fully and flatten it on the table, suggesting a positive trajectory in her healing process. She has been able to make a fist without significant discomfort, and her surgical scars on her right hand are healing effectively. The hand area shows no signs of tenderness, erythema, or significant swelling. She has not yet resumed weight-lifting activities but has reported overall improvement in returning to normal function. Review of Systems - Musculoskeletal: Reports improvement in hand movement with no tenderness, erythema, or significant swelling - General: Denies significant issues or complications post-surgery Systems reviewed and are negative except as per HPI and below Physical Exam - Musculoskeletal- Right hand scars healing well, no tenderness, no erythema, no significant swelling noted Results Procedure Plan The patient has shown excellent progress in her postoperative recovery, with significant improvement in hand function and healing of surgical scars. Continuing occupational therapy is recommended, with gradual resumption of normal activities. She should adhere to specific weight-lifting restrictions, limiting to 5-10 pounds initially, then increasing to 15 pounds over time. No scheduled follow-up is required, but the patient has the option to contact us if any concerns emerge. Patient was informed and verbally consented to the use of an ambient scribe for clinic note documentation during this visit. Discussion Notes During the visit, I reviewed with the patient her postoperative progress and evaluated her recovery. Her current improvement is encouraging, with no significant tenderness, erythema, or swelling observed on examination. I discussed continuing occupational therapy to further enhance her recovery, along with the gradual resumption of normal activities, including specific weight- lifting restrictions. The patient is satisfied with her progress and agreed to the current management plan. Follow-up appointments are not deemed necessary unless she experiences any concerns or complications, in which case she is encouraged to contact our office. Patient Instructions - Continue with occupational therapy as planned - Gradually resume normal activities - Follow weight-lifting guidelines: start with 5-10 pounds, then slowly progress to 15 pounds over the next 3-4 weeks - Monitor for any changes or issues in hand function - Contact us if you have any concerns or questions regarding your recovery Coding Level of Care Code Global (77912) Diagnoses Dupuytren's contracture of right hand M72.0
== END 2024-08-23 09:19 | disposition home or self-care (01) ==
LOC: HO.HOS 08:38
PROVIDERS: PCP Internal Medicine
DX: M72.0 Palmar fascial fibromatosis [Dupuytren] (principal)
CPT/HCPCS: 99024

== ENCOUNTER → 2024-08-23 08:35 | Outpatient (BNVA) | payer MEDICARE, OTHER, SELFPAY | PROVIDERS: PCP Internal Medicine | DX: M72.0 Palmar fascial fibromatosis [Dupuytren] (principal) | CPT/HCPCS: 99212 ==

== ENCOUNTER 2024-08-23 09:48 | Outpatient (RCR) | payer MEDICARE, OTHER, SELFPAY ==
--- NOTE | 2024-08-07 11:54 | MHC.OT.EP ---
[address] [phone] Occupational Therapy Plan of Care Patient Name: Jenelle Griffith Date of Evaluation: 08/07/24 Diagnosis: Post-op Right index and middle Dupuytren's partial fasciectomy Pain Location: Mild pain through right hand Pain Score: 2 Pain Scale Used: Torres-Rivera (Faces) Assessment: 74 yo female post-op right index and middle Dupuytren's partial fasciectomy 07/24/24 w/ Dr Hall. She was referred to OT today s/p suture removal for nighttime orthosis and cont'd hand therapy. She presents right from [facility] w/ clean and dry dressings, not removed at this time but OT will continue to address wound care needs and scar tissue management on subsequent visits. We have fabricated nighttime hand based orthosis to maintain index and middle finger extension and have educated of hand ROM exercises. We will continue hand therapy services to progress range, strength and functional use of right hand. Frequency and Duration: The patient will be seen 1x/wk for 6 weeks Short Term Goals: Full tip-palm active digit range Ind w/ nighttime orthosis wear Good follow through w/ wound protection/healing Payment Rep Goals: Ind w/ progression of strengthening Pain free w/ moderate use of right hand Full AROM right hand/digits Treatment Plan: Therapeutic Exercise Therapeutic Activity Home Exercise Program Splinting Patient Education Edema Control ADL Training Paraffin Fluidotherapy MHP Cold Packs Joint Mobilization Soft Tissue Mobilization Kinesiotaping Electronically Signed By: Nan Anderson OTR/L CHT Please Sign and return to therapist. Thank you once again for your referral.
--- NOTE | 2024-08-23 10:52 | MHC.OT.DC ---
[address] [phone] F: [phone] Occupational Therapy Discharge Note Patient Name: Jenelle Griffith Provider: Raul Champion PA-C Diagnosis: Post-op Right index and middle Dupuytren's partial fasciectomy Date of Surgery: 07/24/24 Date of Evaluation: 08/07/24 Date of Discharge: 08/23/24 Treatments to Date: 4 Discharge Status: Achieved Goals Improved Function Independent with HEP Discharge Summary: Jenelle is about one month post-op and doing well. She has good healing of incision and good follow through w/ HEP and nighttime orthosis wear. Goals met and Ind w/ self management. Electronically Signed By: Nan Anderson OTR/Frandy CHT Reviewed/agree with student documentation: Therapist: Please Sign and return to therapist, thank you for your referral.
== END 2024-08-23 10:53 | disposition home or self-care (01) ==
LOC: HO.OT 09:48
PROVIDERS: PCP Internal Medicine
DX: M72.0 Palmar fascial fibromatosis [Dupuytren] (principal)
CPT/HCPCS: 29130; 97110; 97140; 97165; 97760

== ENCOUNTER 2024-10-16 08:15 | Outpatient (REF) | payer MEDICARE, OTHER, SELFPAY ==
--- OUTSIDE RECORDS SUMMARY | 2024-10-16 08:24 | XMS_ITS | Data Portability ---
Author Organization [facility], [facility] [place] Address [address] [place] [address] Assessment Encounter Date Assessment Date Assessment LastModified [...] Organization Detail LastModifiedTime 11/19/19 24 07/29/2020 imagi ng/di jeramy tic resul t No observ ation record ed. [...] MIGRAINE HEADACHE. DO NOT EXCEED 8 DOSES [place] 24 HOURS active Not Available Not Available [...] Updated DateTime 10/15/2023 170.18 cm 22.7 kg/m2 36441.89 g AIMEE AKBAR MS - [facility] 10/15/2023 10:42:46 Social History None recorded. Functional Status None recorded. Mental Status None recorded. Family History Nothing Reported. Medical History No medical history recorded. Gynecological HistoryNo gynecological history recorded. Obstetrics History GPAL:G 0 P 0 0 0 0 Past Encounters Encounter ID Performer Location Encounter Start Date Encounter Closed Date Diagnosis/Indication Diagnosis SNOMED-CT Code Diagnosis ICD10 Code Diagnosis Note [id number] MD Rommel Romo [address] [place] [phone] 10/15/2023 10:00:31 11/02/2023 12:59:14 Dupuytren's disease of palm 343595452 M72.0 Health Concerns Section Related Observation LastModified by Organization Detai ls LastModified Time None Recorded Concern Status LastModified by Organization Details LastModified Time None Recorded Advance Directives Directive None Recorded Payers Insurance Date Sequence Insurance Name Policy Number Policy Mandujano Covered Member ID Mandujano Member ID Guarantor Name 11/02/2023 2 FOR LIFE ( - MEDICARE SUPPLEMENT) Jenelle Griffith [id number] Jenelle Griffith 10/15/2023 1 MEDICARE B-[place]: [facility] Jenelle Griffith [id number] Jenelle Griffith OBGyn Episode No OBEpisode recorded.
--- OUTSIDE RECORDS SUMMARY | 2024-10-16 08:24 | XMS_ITS | Clinical Summary ---
Author Organization [facility] Address [address] [place] [address] Care Team Providers Care Bottle Label Inspector Name Role Phone Unavailable Primary Care Provider [...] 1 - PCV) 2016 Influenza Vaccine (#1) 2024 RSV Adult > 60+ Yrs or Pregn ant (1 - 1-dose 75+ series) 2026 Hepatitis B Vaccines Aged Out No long er eligible based on patient's age to complete this topic RSV Ped < 20 months Aged Out No longe r eligible based on patient's age to complete this topic
--- OUTSIDE RECORDS SUMMARY | 2024-10-16 08:24 | XMS_ITS | Patient Health Record ---
Author Organization [facility] Address [address] [place] [phone] Care Team Providers Care Social Media Director Name Role Phone Brittney Figueroa Primary Care Provider Ankur Miramontes Jr Unavailable [phone] Allergies No Known Allergies Reason For Referral [...] Problem Status W/U Status Risk Notes Problem 072404839 Colon cancer screening (Z12.11) Active confirmed Problem 360551425 Abdominal bloati ng (R14.0) Active confirmed Problem 96305149 Constipation, unspecified constipation type (K59.00) Active confirmed Problem 88610001 Other specified pre-operative examination (Z01.818) Active confirmed Problem 334601485 Long-term curren t use of high risk medication other than anticoagulant (Z79.899) Active confirmed Problem 43485612 Pelvic pain (R10.2) Active confirmed Problem 59766605 Abdominal discomfort (R10.9) Active confirmed Plan Of Treatment Future Test Test Name Order Date COLONOSCOPY 01/25/2015 COLONOSCOPY 07/01/2020 Insurance Providers Payer Name Payer Address Payer Phone Subscriber Number Group Number Insured Name Patient Relationship to Insured Coverage Start Date Coverage End Date MEDICARE OF [place] [address] [place] RODRIGUEZ [id number] DENILSON NINO Self - patient is the insured FOR LIFE [address] [place] [address] [id number] DENILSON NINO Self - patient is the insured Medical (General) History Medical History History ICD Code Colonoscopy 10/08/20, hyperpl astic polyp, ten-year followup optional based on age anxiety/depression elevated cholesterol Osteoporosis Hypothyroidism Surgical History Surgery Date(Month/Year) total hip replacement, right 2010 lumpectomy, right breast total hip replacement, left 11/09
--- OUTSIDE RECORDS SUMMARY | 2024-10-16 08:24 | XMS_ITS | Clinical Summary ---
Author Organization [facility] Address [address] [place] [phone] Phone Care Team Providers Care Health Care Consultant Name Role Phone Brittney Cruz MD Primary Care Provider [phone] Allergies No known active allergies Medications aspirin [...] AM EST Office Visit General Surgery - [place] [facility] [address] [place] [phone] Johnnie Harrell MD [facility] [address] [place] [phone] Health Maintenance Due Date Last Done Comments Colorectal Cancer Screening: Colonoscopy 02/22/2022 Falls Risk Assessment 02/22/2022 Hepatitis C Screening 02/22/2022 Medicare Annual Wellness Visit 02/22/2022 Osteoporosis Screening (Bone Density Screening) 02/22/2022 Social Influencers of Health Screening 02/22/2022 Depression Screening 03/22/2024 IPV Vaccines (2 of 3 - Adult catch-up series) 2024 03/21/2024 COVID-19 Vaccine (9 - Pfizer risk season) 2024 12/31/2023, 12/22/2022, 07/13/2022, Additional history exists Influenza Vaccine (#1) 2024 , 12/22/2022, 02/10/2022, Additional history exists Breast Cancer Screening 01/24/2026 01/25/20, 12/01/2022, 11/18/2021, Additional history exists RSV Immunization Adult Patients (1 - 1-dose 75+ series) 2026 DTaP,Tdap,and Td Vaccines (3 - Td or Tdap) 01/23/2034 01/24/2024, 09/07/2014 Zoster Vaccines Completed 11/03/2019, 03/23, 12/21/2016 Pneumococcal Vaccine: 50+ Years Completed 12/25/2019, 07/20/2016 Hepatitis A Vaccines Aged Out 01/24/2024, 10/26/2007, [...] AM EST No mammographic evidence of malignancy. No suspicious interval change. A negative mammogram in the presence of a clinically suspicious palpable abnormality does not preclude the possibility of malignancy or alter the indications for biopsy. ASSESSMENT: BI-RADS 2: BENIGN RECOMMENDATION(S): 1: Routine screening mammogram BILATERAL in 1 year. -------- FINAL REPORT -------- Dictated By: Ken Flemign Dictated Date: 01/25/2024 08:18 ET Assigned Physician: Ken Fleming Reviewed and Electronically Signed By: Ken Fleming Signed Date: 01/25/2024 08:25 ET Workstation ID: [id number] Transcribed By: Self Edit Transcribed Date: 01/25/2024 08:18 ET Narrative 01/25/2024 8:25 AM EST EXAM: SCREENING MAMMOGRAPHY, BILATERAL HISTORY: SCREENING. Personal history of breast cancer. Right lumpectomy 2007. Radiation and TAMOXIFEN. COMPARISON: 12/01/2022, 11/18/2021, 11/14/2020, 10/31/2019 TECHNIQUE: Synthesized CC and MLO projections of each breast. Tomosynthesis of each breast in the CC and MLO projections. ADDITIONAL IMAGING: Craniocaudal view of the right breast exaggerated 20 axilla Computer-aided detection was employed with the WinProbe AI 3-D. TISSUE DENSITY: There are scattered areas of fibroglandular density. (BI-RADS category B) FINDINGS: RIGHT BREAST: There is unchanged architectural distortion in the 8 o'clock region consistent with prior lumpectomy. No change in the region of the biopsy site marker. No additional suspicious right breast findings LEFT BREAST: No suspicious mass. No suspicious calcification. No distortion. No change in the region of a biopsy site marker Procedure Note Ken Fleming MD - 01/25/2024 EXAM: SCREENING MAMMOGRAPHY, BILATERAL HISTORY: SCREENING. Personal history of breast cancer. Right [id number]. Radiation and TAMOXIFEN. COMPARISON: 12/01/2022, 11/18/2021, 11/14/2020, [...] Signed Date: 01/25/2024 08:25 ET Workstation ID: [id number] Transcribed By: Self Edit Transcribed Date: 01/25/2024 08:18 ET us Self Referral Sppl IMG BI PROCEDURES Final Resul t from Last 3 Months or Most Recently Relevant to Health Maintenance Insurance MEDICARE Care Teams Health Care Consultant Relationship Specialty Start Date End Date Brittney Cruz MD [address] [place] [address] , [address] [facility] HEATHER Ding PCP - General Internal Medicine 04/05/18
[2024-10-16 09:54] LABS: Alanine Aminotransferase 19 U/L (0-31); Albumin Level 4.3 g/dL (3.5-5.0); Alkaline Phosphatase 81 U/L (39-117); Anion Gap 11 (12-20); Aspartate Amino Transferase 21 U/L (5-31); Blood Urea Nitrogen 26 mg/dL (9-16); Calcium 9.2 mg/dL (8.4-10.2); Carbon Dioxide 25 mmol/L (22-29); Chloride 109 mmol/L (96-108); Cholesterol 235 mg/dL (<200); Estimated Glomerular Filt Rate > 60; HDL Cholesterol 67 mg/dL (>40); Potassium 4.1 mmol/L (3.3-5.1); Sodium 141 mmol/L (135-145); Total Protein 6.7 g/dL (6.5-8.0); Triglycerides 50 mg/dL (<150)
[2024-10-16 10:12] LABS: Thyroid Stimulating Hormone 3.04 uIU/mL (0.32-4.0)
== END 2024-10-16 08:16 | disposition home or self-care (01) ==
LOC: HO.LAB 08:15
PROVIDERS: PCP Internal Medicine; Visit Provider Internal Medicine
DX: E03.9 Hypothyroidism, unspecified (principal); E78.00 Pure hypercholesterolemia, unspecified
CPT/HCPCS: 36415; 80053; 80061; 84443

== ENCOUNTER 2024-10-17 13:05 | Outpatient (AMB) | payer MEDICARE, OTHER, SELFPAY ==
[2024-10-17 13:18] VITALS: BP 120/80; PULSE 80; RESP 18; TEMP 36.1; O2SAT 94; BMI 24.5
--- NOTE | 2024-10-17 13:18 | A.OFFPC_ITS ---
Vital Signs 10/17/24 13:18 Height 5 ft 5 in Weight 147 lb 8 oz BMI 24.5 BP 120/80 Blood Pressure Location Lt brachial Position Sitting Respiration 18 Pulse 80 Pulse Source Pulse Oximeter Temp 97.0 F Temp Source Temporal Artery Scan Pulse Oximetry (%) 94 Oxygen Delivery Method Room Air Intake Visit Reasons: thyroid,lipids Literacy Coordinator Required: No Accompanied by: Self / Same As Patient Allergies No Known Allergies Allergy (Verified 10/17/24 13:28) Medication List - Last Reconciled 10/17/24 by Brittney Cruz MD alendronate 70 mg PO QWEEK amoxicillin 2,000 mg (4 x 500 mg) PO ONCE 1 day aspirin (Adult Low Dose Aspirin) 81 mg PO DAILY calcium carbonate (Calcium 600) 1,200 mg (2 x 600 mg calcium (1,500 mg)) PO DAILY 90 days citalopram 30 mg (1.5 x 20 mg) PO DAILY 90 days ibuprofen 600 mg PO Q6-8H PRN levothyroxine 100 mcg PO DAILY 90 days omega 0-yvt-lzj-fish oil 60-90-500 mg (Fish Oil) 1 cap PO DAILY propranolol 20 mg PO BID sumatriptan succinate 25 mg PO Q2-4H PRN 90 days Tobacco use date assessed: 10/17/24 Fall risk assessment: No Falls in past year Last assessed Fall Risk: 10/17/24 Dental Screening Dental Screen Date: 10/17/24 Did you have a dental visit in the last 12 months?: Yes Did you have a dental problem in the last 6 months where you did not have access to dental care?: No Was dental information given to patient?: Patient has dentist HPI HPI Comments History of Present Illness Details The patient is a 74-year-old female presenting with a follow-up on her chronic conditions and recent blood work results. She has a history of osteoporosis, managed by endocrinology, and underwent a bone density test in 2022. She is considering discontinuing alendronate due to dental concerns and plans to discuss this with her technology sales representative. The patient reports a history of migraine headaches, which have been familial and were previously associated with her menstrual cycle. She has not experienced a full migraine recently but reports frequent headaches. Her cholesterol levels are elevated, with a total cholesterol of 235 mg/dL and LDL of 158 mg/dL. The [place] Risk Score was calculated at 3.4%, indicating a low risk for cardiovascular events, and no medication was deemed necessary at this time. [facility] Medical History Right hip pain Pure hypercholesterolemia Constipation by delayed colonic transit Mild major depression, single episode MEHRAN (generalized anxiety disorder) Mass of right hand Dyslipidemia Hip pain Vitamin D deficiency History of breast cancer Osteoporosis Depression with anxiety Hypothyroidism Surgical History H/O colonoscopy Cataract extraction status of eye History of left hip replacement History of lumpectomy of right breast History of section History of hip replacement Family History Father FH: prostate cancer Mother Stroke Hypertension Osteoporosis Sister COPD (chronic obstructive pulmonary disease) Social History Housing: House Are you a primary child care attendant school to a significant other at home: No Alcohol intake: current Alcohol intake frequency: holidays/special occasions only Alcohol type: wine Patient Tobacco Use Status: Never used Tobacco e-Cigarette/Vaping Use: Never Used Second Hand Smoke Exposure: No Advance Directives Date on File: 10/08/20 service: No Current occupational status: employed Current occupation: rt handed Current occupational exposures/hazards: No Cognitive needs: No Hearing needs: No Vision needs: Yes Questionnaire PHQ-9 Over the last 2 weeks, how often have you been bothered by any of the following problems? 1. Little interest or pleasure in doing things: not at all 2. Feeling down, depressed, or hopeless: not at all 3. Trouble falling or staying asleep, or sleeping too much: not at all 4. Feeling tired or having little energy: not at all 5. Poor appetite or overeating: not at all 6. Feeling bad about yourself - or that you are a failure or have let yourself or your family down: not at all 7. Trouble concentrating on things, such as reading the newspaper or watching te levision: not at all 8. Moving or speaking so slowly that other people could have noticed. Or the opposite - being so fidgety or restless that you have been moving around a lot more than usual: not at all 9. Thoughts that you would be better off or of hurting yourself in some way: not at all Total score: 0 Depression Screening Interpretation: Negative Depression Screening Done: Yes 97367 - PHQ-9 Billing: Yes Source: Developed by Drs. Sebastian Mejia, Nazanin Whitt, Martin Wilson and colleagues, with an educational raffi from [employer]. Thrive Questionnaire Date Thrive assessed: 10/10/24 I am a: Patient What is your living situation today?: I have a steady place to live Within the past 12 months, did the food you bought not last and you didn't have the money to get more?: Never true Within the past 12 months, did you worry whether your food would run out before you got money to buy more?: Often true Do you have trouble paying for medicines?: No Do you have trouble getting transportation to medical appointments?: No Do you have trouble paying your heating and electricity bill?: No Do you have trouble taking care of your child, family member or friend?: No Do you have trouble with day-to-day activities such as bathing, preparing meals, shopping, managing finances, etc.?: No Are you currently unemployed and looking for a job?: No Are you interested in more education?: No Please select the resources that you would like help with: None Currently or been in a relationship where the following occur: No concerns reported THRIVE Score: 1 AUDIT C Alcohol Use Questionnaire (AUDIT-C) 1. How often do you have a drink containing alcohol?: Monthly or less 2. How many drinks containing alcohol do you have on a typical day when you are drinking?: 1 or 2 3. How often do you have six or more drinks on one occasion?: Never Total Score: 1 Score Reviewed/Action Taken: No MEHRAN-7 AMB Questionnaire MEHRAN-7 Date MEHRAN - 7 assessed: 06/12/24 Feeling nervous, anxious, or on edge: 0 = Not at all Not being able to stop or control worryin = Not at all Worrying too much about different things: 0 = Not at all Trouble relaxin = Not at all Being so restless that it is hard to sit still: 0 = Not at all Becoming easily annoyed or irritable: 0 = Not at all Feeling afraid as if something awful might happen: 0 = Not at all Total MEHRAN-7 score (0-4 normal; 5-9 mild; 10-14 moderate; 15-21 severe): 0 Source: Developed by Drs. Sebastian Mejia, Nazanin Whitt, Martin Wilson and colleagues, with an educational rafif from [employer]. MEHRAN-7 Assessment Billing MEHRAN-7 Assessment Tool: MEHRAN-7 Assessment 95946 Review of Systems Const All systems reviewed & are unremarkable except as noted in HPI and below Card Denies chest pain at rest, Denies chest pain with activity, Denies edema, Denies irregular heart rhythm, Denies claudication, Denies dyspnea, Denies dyspnea on exertion, Denies orthopnea, Denies paroxysmal nocturnal dyspnea and Denies slow heart rate Resp Denies cough, Denies dyspnea and Denies dyspnea on exertion GI Denies abdominal pain, Denies change in bowel habits, Denies excessive flatus, Denies nausea and Denies vomiting Denies urinary incontinence, Denies urinary hesitancy and Denies urinary urgency Musc Denies abnormal gait, Denies atrophy, Denies deformity and Denies limited range of motion Skin/Breast Denies bleeding lesions, Denies changing lesions and Denies rash Neuro Denies abnormal gait and Denies lack of coordination Physical exam (Primary Care) Vital Signs: Last Vital Signs Temp 97.0 F 10/17/24 13:18 Pulse 80 10/17/24 13:18 Resp 18 10/17/24 13:18 BP 120/80 10/17/24 13:18 Pulse Ox 94 10/17/24 13:18 Oxygen Delivery Method Room Air 10/17/24 13:18 BMI result Body Mass Index 24.5 Tobacco/Smoking Status: Tobacco use Status Tobacco use date assessed 10/17/24 10/17/24 13:22 Patient Tobacco Use Status Never used Tobacco 10/17/24 13:22 e-Cigarette/Vaping Use Never Used 10/17/24 13:22 PHQ-9: PHQ-9 Score PHQ-9: Total score 0 10/17/24 13:22 Depression Screening Interpretation: Negative Thrive Assessment: Date of Thrive Assessment Date Thrive assessed 10/10/24 10/17/24 13:22 Currently or been in a relationship where the following occur: No concerns reported Resp Effort & Inspection: normal respiratory effort Auscultation: clear to auscultation bilaterally Cardio Jugular venous distension: no JVD Rate: regular rate Rhythm: regular rhythm Heart sounds: S1 normal heart sound present and S2 normal heart sound present Extrem General: Yes full ROM Coding Level of Care Code Est Pt Level 4 (22977) Complex EM visit Add On G2211 Diagnoses Age-related osteoporosis without current pathological fracture M81.0 Osteoporosis type: age-related Presence of current pathological fracture: without current pathological fracture Acquired hypothyroidism E03.9 Hypothyroidism type: acquired Pure hypercholesterolemia E78.00 Mild major depression, single episode F32.0 MEHRAN (generalized anxiety disorder) F41.1 Episodic tension-type headache, not intractable G44.219 Headache chronicity pattern: episodic headache Intractability: not intractable Additional Codes PHQ-9 - 02829 - PHQ-9 Billing: Yes ([id number]) MEHRAN-7 Assessment Billing - MEHRAN-7 Assessment Tool: MEHRAN-7 Assessment 88717 ([id number]) Time Spent (min) 23 Assessment & Plan Assessment & Plan (1) Osteoporosis: Code(s): M81.0 - Age-related osteoporosis without current pathological fracture Category: Medical Qualifiers: Osteoporosis type: age-related Presence of current pathological fracture: without current pathological fracture Qualified Code(s): M81.0 - Age- related osteoporosis without current pathological fracture (2) Hypothyroidism: Code(s): E03.9 - Hypothyroidism, unspecified Category: Medical Qualifiers: Hypothyroidism type: acquired Qualified Code(s): E03.9 - Hypothyroidism, unspecified (3) Pure hypercholesterolemia: Code(s): E78.00 - Pure hypercholesterolemia, unspecified Category: Medical (4) Mild major depression, single episode: Code(s): F32.0 - Major depressive disorder, single episode, mild Category: Medical (5) MEHRAN (generalized anxiety disorder): Code(s): F41.1 - Generalized anxiety disorder Category: Medical (6) Tension-type headache: Code(s): G44.209 - Tension-type headache, unspecified, not intractable Category: Medical Qualifiers: Headache chronicity pattern: episodic headache Intractability: not intractable Qualified Code(s): G44.219 - Episodic tension-type headache, not intractable Plan The patient will discuss the continuation of alendronate with her technology sales representative due to dental concerns. A referral to a neurologist will be made to address her frequent headaches and explore new treatment options for migraines. Magnesium supplementation will be recommended to help manage headaches, with the option to purchase [id number] if not covered by insurance. The patient's cholesterol levels will be monitored, but no medication is required at this time due to a low [place] Risk Score. Patient was informed and verbally consented to the use of an ambient scribe for clinic note documentation during this visit. Orders: Orders Comprehensive [place]. Panel Fast 6 Months G44.219 - Episodic tension-type headache, not intractable Thyroid Stimulating Hormone 6 Months E03.9 - Hypothyroidism, unspecified Lipid Panel 6 Months E78.5 - Hyperlipidemia, unspecified Referrals Neurology Referral G44.219 - Episodic tension-type headache, not intractable Medications: New magnesium oxide 400 mg PO BEDTIME 90 caps 1RF 90 days
--- OUTSIDE RECORDS SUMMARY | 2024-10-17 13:51 | XMS_ITS | Clinical Summary ---
Author Organization [facility] Address [address] [place] [address] Care Team Providers Care Truck Greaser Name Role Phone Unavailable Primary Care Provider [...]
--- OUTSIDE RECORDS SUMMARY | 2024-10-17 13:51 | XMS_ITS | Clinical Summary ---
Author Organization [facility] Address [address] [place] [phone] Phone Care Team Providers Care Sewing Department Supervisor Name Role Phone Brittney Cruz MD Primary Care Provider [phone] Allergies No known active allergies Medications aspirin [...] AM EST Office Visit General Surgery - [place] [address] [facility] [address] [place] [phone] Johnnie Harrell MD [address] [facility] [address] [place] [phone] Health Maintenance Due Date Last Done Comments [...] Signed Date: 01/25/2024 08:25 ET Workstation ID: [id number] Transcribed By: Self Edit Transcribed Date: 01/25/2024 [...] axilla Computer-aided detection was employed with the [employer] AI 3-D. TISSUE DENSITY: There are scattered [...] SCREENING. Personal history of breast cancer. Right [id number]. Radiation and TAMOXIFEN. COMPARISON: 12/01/2022, 11/18/2021, 11/14/2020, [...] Signed Date: 01/25/2024 08:25 ET Workstation ID: [id number] Transcribed By: Self Edit Transcribed Date: 01/25/2024 08:18 ET us Self Referral Sppl IMG BI PROCEDURES Final Resul t from Last 3 Months or Most Recently Relevant to Health Maintenance Insurance MEDICARE Care Teams Sewing Department Supervisor Relationship Specialty Start Date End Date Brittney Cruz MD [address] [place] [address] , [address] [facility] D[facility] HEATHER Ding PCP - General Internal Medicine 04/05/18
--- OUTSIDE RECORDS SUMMARY | 2024-10-17 13:51 | XMS_ITS | Patient Health Record ---
Author Organization [facility] Address [address] [place] [address] Care Team Providers Care Supervisor [employer] Name Role Phone Brittney Figueroa Primary Care [...] Problem Status W/U Status Risk Notes Problem 102133871 Colon cancer screening (Z12.11) Active confirmed Problem 362642781 Abdominal bloati ng (R14.0) Active confirmed Problem 97958023 Constipation, unspecified constipation type (K59.00) Active confirmed Problem 53477483 Other specified pre-operative examination (Z01.818) Active confirmed Problem 874829198 Long-term curren t use of high risk medication other than anticoagulant (Z79.899) Active confirmed Problem 40367176 Pelvic pain (R10.2) Active confirmed Problem 20665971 Abdominal discomfort (R10.9) Active confirmed Plan Of Treatment Future Test Test Name Order Date COLONOSCOPY 01/25/2015 COLONOSCOPY 07/01/2020 Insurance Providers Payer Name Payer Address Payer Phone Subscriber Number Group Number Insured Name Patient Relationship to Insured Coverage Start Date Coverage End Date MEDICARE OF [place] [address] [place] [id number] DENILSON NINO Self - patient is the insured FOR LIFE [address] [place] [address] [id number] DENILSON NINO Self - patient is the insured Medical (General) History Medical History History ICD Code Colonoscopy 10/08/20, hyperpl astic polyp, ten-year followup optional based on age anxiety/depression elevated cholesterol Osteoporosis Hypothyroidism Surgical History Surgery Date(Month/Year) total hip replacement, right 2010 lumpectomy, right breast total hip replacement, left 11/09
--- OUTSIDE RECORDS SUMMARY | 2024-10-17 13:51 | XMS_ITS | Data Portability ---
Author Organization [facility] Address [address] [place] [address] Assessment Encounter Date Assessment Date Assessment LastModified [...] MIGRAINE HEADACHE. DO NOT EXCEED 8 DOSES UT 24 HOURS active Not Available Not Available [...] Updated DateTime 10/15/2023 170.18 cm 22.7 kg/m2 99187.89 g AIMEE AKBAR [place] [facility] 10/15/2023 10:42:46 Social History None recorded. Functional Status None recorded. Mental Status None recorded. Family History Nothing Reported. Medical History No medical history recorded. Gynecological HistoryNo gynecological history recorded. Obstetrics History GPAL:G 0 P 0 0 0 0 Past Encounters Encounter ID Performer Location Encounter Start Date Encounter Closed Date Diagnosis/Indication Diagnosis SNOMED-CT Code Diagnosis ICD10 Code Diagnosis Note [id number] MD Rommel Romo [address] [place] [address] 10/15/2023 10:00:31 11/02/2023 12:59:14 Dupuytren's disease of palm 581572676 M72.0 Health Concerns Section Related Observation LastModified by Organization Detai ls LastModified Time None Recorded Concern Status LastModified by Organization Details LastModified Time None Recorded Advance Directives Directive None Recorded Payers Insurance Date Sequence Insurance Name Policy Number Policy Mandujano Covered Member ID Mandujano Member ID Guarantor Name 11/02/2023 2 FOR LIFE ( - MEDICARE SUPPLEMENT) Jenelle Griffith [id number] Jenelle Griffith 10/15/2023 1 MEDICARE B-[place]: [facility] Jenelle Griffith [id number] Jenelle Griffith OBGyn Episode No OBEpisode recorded.
== END 2024-10-17 13:43 | disposition home or self-care (01) ==
LOC: HO.HMCH 13:06
PROVIDERS: PCP Internal Medicine; Visit Provider Internal Medicine
DX: M81.0 Age-related osteoporosis without current pathological fracture (principal); E03.9 Hypothyroidism, unspecified; E78.00 Pure hypercholesterolemia, unspecified; F32.0 Major depressive disorder, single episode, mild; F41.1 Generalized anxiety disorder; G44.219 Episodic tension-type headache, not intractable

== ENCOUNTER → 2024-10-17 13:05 | Outpatient (BNVA) | payer MEDICARE, OTHER, SELFPAY | PROVIDERS: PCP Internal Medicine; Visit Provider Internal Medicine | DX: M81.0 Age-related osteoporosis without current pathological fracture (principal); E03.9 Hypothyroidism, unspecified; E78.00 Pure hypercholesterolemia, unspecified; F32.0 Major depressive disorder, single episode, mild; F41.1 Generalized anxiety disorder; G44.219 Episodic tension-type headache, not intractable | CPT/HCPCS: 96127; 99212 ==

== ENCOUNTER 2024-10-21 07:45 | Outpatient (REF) | payer MEDICARE, OTHER, SELFPAY ==
--- OUTSIDE RECORDS SUMMARY | 2024-10-21 07:47 | XMS_ITS | Clinical Summary ---
Author Organization [facility] Address [address] [place] [address] Care Team Providers Care Sap Basis Architect Name Role Phone Unavailable Primary Care Provider [...]
--- OUTSIDE RECORDS SUMMARY | 2024-10-21 07:47 | XMS_ITS | Patient Health Record ---
Author Organization [facility] Address [address] [place] [address] Care Team Providers Care Radial Router Operator Name Role Phone Brittney Figueroa Primary Care [...] Problem Status W/U Status Risk Notes Problem 517672912 Colon cancer screening (Z12.11) Active confirmed Problem 644065678 Abdominal bloati ng (R14.0) Active confirmed Problem 46345534 Constipation, unspecified constipation type (K59.00) Active confirmed Problem 95954505 Other specified pre-operative examination (Z01.818) Active confirmed Problem 917067413 Long-term curren t use of high risk medication other than anticoagulant (Z79.899) Active confirmed Problem 99396583 Pelvic pain (R10.2) Active confirmed Problem 17263121 Abdominal discomfort (R10.9) Active confirmed Plan Of Treatment Future Test Test Name Order Date COLONOSCOPY 01/25/2015 COLONOSCOPY 07/01/2020 Insurance Providers Payer Name Payer Address Payer Phone Subscriber Number Group Number Insured Name Patient Relationship to Insured Coverage Start Date Coverage End Date [place] [address] [place] [id number] [phone] [id number] DENILSON NINO Self - patient is the insured FOR LIFE [address] [place] [id number] DENILSON NINO Self - patient is the insured Medical (General) History Medical History History ICD Code Colonoscopy 10/08/20, hyperpl astic polyp, ten-year followup optional based on age anxiety/depression elevated cholesterol Osteoporosis Hypothyroidism Surgical History Surgery Date(Month/Year) total hip replacement, right 2010 lumpectomy, right breast total hip replacement, left 11/09
--- OUTSIDE RECORDS SUMMARY | 2024-10-21 07:47 | XMS_ITS | Clinical Summary ---
Author Organization [facility] Address [address] [place] [phone] Phone Care Team Providers Care Dealer Development Manager Name Role Phone Brittney Cruz MD Primary Care Provider [phone] Allergies No known active allergies Medications aspirin [...] AM EST Office Visit General Surgery - [place] 175 [facility] [address] [place] [phone] Johnnie Harrell MD 175 [facility] [address] [place] [phone] Health Maintenance Due Date Last Done Comments [...] Signed Date: 01/25/2024 08:25 ET Workstation ID: [id number] Transcribed By: Self Edit Transcribed Date: 01/25/2024 [...] axilla Computer-aided detection was employed with the [employer] 3-D. TISSUE DENSITY: There are scattered [...] SCREENING. Personal history of breast cancer. Right [id number]. Radiation and TAMOXIFEN. COMPARISON: 12/01/2022, 11/18/2021, 11/14/2020, [...] Signed Date: 01/25/2024 08:25 ET Workstation ID: [id number] Transcribed By: Self Edit Transcribed Date: 01/25/2024 08:18 ET us Self Referral Sppl IMG BI PROCEDURES Final Resul t from Last 3 Months or Most Recently Relevant to Health Maintenance Insurance MEDICARE Care Teams Dealer Development Manager Relationship Specialty Start Date End Date Brittney Cruz MD [address] [place] [address] , [address] [facility] D[facility] HEATHER Ding PCP - General Internal Medicine 04/05/18
[2024-11-02 07:08] LABS: NTXCreaRU 59 mg/dL (20-275)
== END 2024-10-21 07:46 | disposition home or self-care (01) ==
LOC: HO.LNP 07:45
PROVIDERS: Visit Provider Internal Medicine Endocrinology, Diabetes & Metabolism
DX: M81.0 Age-related osteoporosis without current pathological fracture (principal)
CPT/HCPCS: 82523

== ENCOUNTER 2024-11-02 09:45 | Outpatient (AMB) | payer MEDICARE, OTHER, SELFPAY ==
[2024-11-02 09:57] VITALS: BP 100/70; PULSE 72; O2SAT 98; BMI 24.2
--- NOTE | 2024-11-02 09:57 | MHC.OFFVIS ---
Vital Signs 11/02/24 09:57 Height 5 ft 5.91 in Weight 149 lb 4.047 oz BMI 24.2 BP 100/70 Blood Pressure Location Lt brachial Position Sitting Pulse 72 Pulse Source Pulse Oximeter Pulse Oximetry (%) 98 Oxygen Delivery Method Room Air Intake Visit Reasons: Osteoporosis F/U Intake Note: Patient present today for Osteoporosis follow up. Program Trainer Required: No Accompanied by: Self / Same As Patient Allergies No Known Allergies Allergy (Verified 11/02/24 09:58) Medication List - Last Reconciled 11/02/24 by Sebastian Luther MD alendronate 70 mg PO QWEEK amoxicillin 2,000 mg (4 x 500 mg) PO ONCE 1 day aspirin (Adult Low Dose Aspirin) 81 mg PO DAILY calcium carbonate (Calcium 600) 1,200 mg (2 x 600 mg calcium (1,500 mg)) PO DAILY 90 days citalopram 30 mg (1.5 x 20 mg) PO DAILY 90 days ibuprofen 600 mg PO Q6-8H PRN levothyroxine 100 mcg PO DAILY 90 days magnesium oxide 400 mg PO BEDTIME 90 days omega 0-asw-oia-fish oil 60-90-500 mg (Fish Oil) 1 cap PO DAILY propranolol 20 mg PO BID sumatriptan succinate 25 mg PO Q2-4H PRN 90 days HPI Comments Details: 74 YO Female with PMHx Osteoporosis who is seen in F/U for Osteoporosis. First diagnosed in 2015. Received treatment in the past with Fosamax, from 2015 to 04/2020. Tolerated treatment well without complication. This was stopped by Dr. Rivera after she completed 5 years of therapy. She has Osteoporosis of the hip, and Osteopenia of the spine. Her BMD has worsened and she has failed treatment with Fosamax. After our initial visit she underwent a full biochemical evaluation for secondary causes of Osteoporosis, which was WNL. She then was started on Prolia as of 07/31/2021 and has received this q6 months. She is due for her third dose today. She has tolerated this well. No history of pathologic fracture or ONJ. Has 0-1 servings of dietary calcium per day in the form of yogurt. Takes Calcium supplement 1200 mg PO daily in divided doses. Does not take any Vitamin D currently. Denies ever using PPI, anticoagulant, antiepileptic or glucocorticoid medication. Does weight bearing exercise with Pelham 4-5 days per week. 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 Menses was always regular. She is . She breastfed for a total of 18 months. Menopause was age 53. Denies a history of Kidney stones: Mother had a history of Osteoporosis. No Family history of hip fracture. UTD on dental cleanings and sees dentist every 6 months. No planned upcoming dental work or extractions. DXA dated 02/28/2021: FINDINGS: AP SPINE L1-L4: Current: BMD 1.035 g/cm2, Z-score 0.3, T-score -1.2, osteopenia, 3.2% increase from previous, 4.9% increase from baseline (<5% change is not significant). Prior: BMD 1.003 g/cm2. Baseline: BMD 0.987 g/cm2. LEFT FEMUR, NECK: Current: BMD 0.689 g/cm2, Z-score -1.0, T-score -2.5, osteoporosis. Prior: BMD 0.681 g/cm2. Baseline: BMD 0.738 g/cm2. LEFT FEMUR, TOTAL: Current: BMD 0.679 g/cm2, Z-score -1.3, T-score -2.6, osteoporosis, 3.3% decrease from previous, 9.2% decrease from baseline (<5% change is not significant). Prior: BMD 0.702 g/cm2. Baseline: BMD 0.748 g/cm2. Labs: Laboratory Tests 08/11/22 11:06 Sodium 145 Potassium 4.9 Creatinine 0.88 Estimated GFR > 60 Phosphorus 3.5 Albumin 4.3 25-OH Vitamin D Total 55.5 TSH 1.52 Free T4 1.13 last Prolia injection was 08/10/2023 . Received a dose of Reclast. No fracture since last visit. Urine NTX suppressed still in premenopausal range on alendronate 70 mg qwkly [facility] Medical History Right hip pain Pure hypercholesterolemia Constipation by delayed colonic transit Mild major depression, single episode MEHRAN (generalized anxiety disorder) Mass of right hand Dyslipidemia Hip pain Vitamin D deficiency History of breast cancer Osteoporosis Depression with anxiety Hypothyroidism Surgical History H/O colonoscopy Cataract extraction status of eye History of left hip replacement History of lumpectomy of right breast History of section History of hip replacement Family History Father FH: prostate cancer Mother Stroke Hypertension Osteoporosis Sister COPD (chronic obstructive pulmonary disease) Social History Housing: House Are you a primary assurance services manager health care to a significant other at home: No Alcohol intake: current Alcohol intake frequency: holidays/special occasions only Alcohol type: wine Patient Tobacco Use Status: Never used Tobacco e-Cigarette/Vaping Use: Never Used Second Hand Smoke Exposure: No Advance Directives Date on File: 10/08/20 service: No Current occupational status: employed Current occupation: rt handed Current occupational exposures/hazards: No Cognitive needs: No Hearing needs: No Vision needs: Yes Physical Exam Vital Signs: Last Vital Signs Pulse 72 11/02/24 09:57 BP 100/70 11/02/24 09:57 Pulse Ox 98 11/02/24 09:57 Oxygen Delivery Method Room Air 11/02/24 09:57 BMI result Body Mass Index 24.2 Assessment & Plan Assessment & Plan (1) Osteoporosis: Code(s): M81.0 - Age-related osteoporosis without current pathological fracture Category: Medical Qualifiers: Osteoporosis type: age-related Presence of current pathological fracture: without current pathological fracture Qualified Code(s): M81.0 - Age-related osteoporosis without current pathological fracture Plan: This 73-year-old white female with a history of osteoporosis treated for 5 years with Fosamax and then Prolia for 1 1/2 years. Her DEXA bone density shows borderline osteoporosis in the hip with a T-score -2.7. Patient has not had fracture. Secondary workup is negative. Last Prolia injection was 07/2023 and on alendronate since 01/2024 . Urine NTX increase but still in premenopausal range The plan is to continue to observe on calcium and vitamin-D and alendronate until 01/2025 and then would transition to a drug holiday. We will recheck DEXA bone density in 01/2025 and we will also recheck urine NTX at that point. The patient is going for dental work 01/2025 and we will hold off until after alendronate is completed Orders: Orders XR DEXA axial skeleton Today M81.0 - Age-related osteoporosis without current pathological fracture Collagen Crosslinks NTX 3 Months M81.0 - Age-related osteoporosis without current pathological fracture Coding Level of Care Code Est Pt Level 3 (71049) Diagnoses Age-related osteoporosis without current pathological fracture M81.0 Osteoporosis type: age-related Presence of current pathological fracture: without current pathological fracture
--- OUTSIDE RECORDS SUMMARY | 2024-11-02 10:26 | XMS_ITS | Clinical Summary ---
Author Organization [facility] Address [address] [place] [address] Care Team Providers Care Box Maker Name Role Phone Unavailable Primary Care Provider [...]
--- OUTSIDE RECORDS SUMMARY | 2024-11-02 10:26 | XMS_ITS | Clinical Summary ---
Author Organization [facility] Address [address] [place] [phone] Phone Care Team Providers Care Mesh Cutter Name Role Phone Brittney Cruz MD Primary Care Provider Allergies No known active allergies Medications aspirin [...] AM EST Office Visit General Surgery - [place] [address] [facility] [address] [place] [phone] Johnnie Harrell MD [address] [facility] [address] [place] [id number] Health Maintenance Due Date Last Done Comments [...] Signed Date: 01/25/2024 08:25 ET Workstation ID: [id number] Transcribed By: Self Edit Transcribed Date: 01/25/2024 [...] axilla 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 TISSUE DENSITY: There are scattered [...] SCREENING. Personal history of breast cancer. Right [id number]. Radiation and TAMOXIFEN. COMPARISON: 12/01/2022, 11/18/2021, 11/14/2020, [...] Signed Date: 01/25/2024 08:25 ET Workstation ID: [id number] Transcribed By: Self Edit Transcribed Date: 01/25/2024 08:18 ET us Self Referral Sppl IMG BI PROCEDURES Final Resul t from Last 3 Months or Most Recently Relevant to Health Maintenance Insurance MEDICARE Care Teams Mesh Cutter Relationship Specialty Start Date End Date Brittney Cruz MD [address] [place] [address] , [address] [facility] Physician Associ D/B/A: [facility] HEATHER Ding PCP - General Internal Medicine 04/05/18
--- OUTSIDE RECORDS SUMMARY | 2024-11-02 10:26 | XMS_ITS | Patient Health Record ---
Author Organization [facility] Address [address] [place] [phone] Care Team Providers Care Photovoltaic Power Systems Engineer Name Role Phone Brittney Figueroa Primary Care Provider Ankur Miramontes Jr Unavailable [phone] Allergies No Known Allergies Reason For Referral [...] Problem Status W/U Status Risk Notes Problem 202148141 Colon cancer screening (Z12.11) Active confirmed Problem 944643687 Abdominal bloati ng (R14.0) Active confirmed Problem 51647176 Constipation, unspecified constipation type (K59.00) Active confirmed Problem 59953526 Other specified pre-operative examination (Z01.818) Active confirmed Problem 458860727 Long-term curren t use of high risk medication other than anticoagulant (Z79.899) Active confirmed Problem 96515952 Pelvic pain (R10.2) Active confirmed Problem 69216578 Abdominal discomfort (R10.9) Active confirmed Plan Of Treatment Future Test Test Name Order Date COLONOSCOPY 01/25/2015 COLONOSCOPY 07/01/2020 Insurance Providers Payer Name Payer Address Payer Phone Subscriber Number Group Number Insured Name Patient Relationship to Insured Coverage Start Date Coverage End Date MEDICARE OF [place] [address] [place] [id number] DENILSON NINO Self - patient is the insured FOR LIFE [address] [place] [address] [id number] DENILSON NINO Self - patient is the insured Medical (General) History Medical History History ICD Code Colonoscopy 10/08/20, hyperpl astic polyp, ten-year followup optional based on age anxiety/depression elevated cholesterol Osteoporosis Hypothyroidism Surgical History Surgery Date(Month/Year) total hip replacement, right 2010 lumpectomy, right breast total hip replacement, left 11/09
== END 2024-11-02 10:49 | disposition home or self-care (01) ==
LOC: HO.ENCR 09:46
PROVIDERS: PCP Internal Medicine; Visit Provider Internal Medicine Endocrinology, Diabetes & Metabolism
DX: M81.0 Age-related osteoporosis without current pathological fracture (principal)
CPT/HCPCS: 99213

== ENCOUNTER → 2024-11-02 09:45 | Outpatient (BNVA) | payer MEDICARE, OTHER, SELFPAY | PROVIDERS: PCP Internal Medicine; Visit Provider Internal Medicine Endocrinology, Diabetes & Metabolism | DX: M81.0 Age-related osteoporosis without current pathological fracture (principal) | CPT/HCPCS: 99212 ==

== ENCOUNTER 2025-02-08 07:49 | Outpatient (REF) | payer MEDICARE, OTHER, SELFPAY ==
--- NOTE | ~2025-02-08 | MM_ITS ---
EXAMINATION: DXA BONE DENSITY AXIAL HISTORY: M81.0 - Age-related osteoporosis without current pathological fracture TECHNIQUE: [employer] Dual energy absorptiometry (DEXA) of the lumbar spine and distal radius was performed. The hips were not evaluated due to a history of bilateral total hip arthroplasty. COMPARISON: Comparison is made with the prior examination dated 02/04/2023. FINDINGS: The bone mineral density of the lumbar spine is 1.084 g/cm2, corresponding to a T-score of -1.0, and a Z-score of 0.7. This is indicative of normal bone mineral density. This represents a BMD change of -4.5% compared to the prior exam. This is statistically significant. The bone mineral density of the distal radius is 0.648 g/cm2, corresponding to a T-score of -2.6, and a Z-score of -0.5. This is indicative of osteoporosis. This represents a BMD change of 0.8% compared to the prior exam. This is not statistically significant. MM/XR DEXA axial skeleton IMPRESSION: Based on bone mineral density, and according to World Health Organization (WHO) criteria, the diagnosis is consistent with osteoporosis. Statistically, 68% of repeat scans fall within 1 SD (+/- 0.010 g/cm2 for AP spine L1-L4) and 1 SD (+/- 0.012 g/cm2 for femur total) FRAX is a trademark of the [employer] [place] for Metabolic Bone Disease, a World Health Organization (WHO) Collaborating Center. Electronically signed by: Sebastian Trimble MD 02/08/2025 08:44 AM [facility]
--- OUTSIDE RECORDS SUMMARY | 2025-02-08 07:56 | XMS_ITS | Clinical Summary ---
Author Organization [facility] Address [address] [place] [address] Care Team Providers Care Traffic Incident Management Manager Name Role Phone Unavailable Primary Care Provider [...]
--- OUTSIDE RECORDS SUMMARY | 2025-02-08 07:56 | XMS_ITS | Data Portability ---
[facility], [facility] [place] Address [address] [place] [address] Assessment Encounter Date Assessment Date Assessment LastModified [...] MIGRAINE HEADACHE. DO NOT EXCEED 8 DOSES [place] 24 HOURS active Not Available Not Available [...] Updated DateTime 10/15/2023 170.18 cm 22.7 kg/m2 52526.89 g AIMEE AKBAR [place] [facility] 10/15/2023 10:42:46 Social History None recorded. Functional Status None recorded. Mental Status None recorded. Family History Nothing Reported. Medical History No medical history recorded. Gynecological HistoryNo gynecological history recorded. Obstetrics History GPAL:G 0 P 0 0 0 0 Past Encounters Encounter ID Performer Location Encounter Start Date Encounter Closed Date Diagnosis/Indication Diagnosis SNOMED-CT Code Diagnosis ICD10 Code Diagnosis IMO Codes Diagnosis Note [id number] MD Rommel Romo [address] [place] [phone] 10/15/2023 10:00:31 11/02/2023 12:59:14 Dupuytren's disease of palm 800362780 M72.0 Health Concerns Section Related Observation LastModified by Organization Detai ls LastModified Time None Recorded Concern Status LastModified by Organization Details LastModified Time None Recorded Advance Directives Directive None Recorded Payers Insurance Date Sequence Insurance Name Policy Number Policy Mandujano Covered Member ID Mandujano Member ID Guarantor Name 11/02/2023 2 FOR LIFE ( - MEDICARE SUPPLEMENT) Jenelle Griffith [id number] Jenelle Griffith 10/15/2023 1 MEDICARE B-[place]: [facility] [employer] Jenelle Griffith [id number] Jenelle Griffith Notes Date Note Type Note Provider Name and Address Organization Details Recorded Time 10/15/2023 text/html ROS as noted in the HPI 73 yo RHD female seen for initial eval of developing R palm Dupuytren's contracture, 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 Has noted developing tightening and contracture development over the past year. Denies numbness or tingling. Denies pain. Uma Chong MD [address] [place] [address] [address], [place], [address], [facility] - [facility] 10/15/2023 11:33:19 OBGyn Episode No OBEpisode recorded.
--- OUTSIDE RECORDS SUMMARY | 2025-02-08 07:57 | XMS_ITS | Patient Health Record ---
Author Organization [facility] Address [address] [place] [phone] Care Team Providers Care Plastics Factory Worker Name Role Phone Brittney Figueroa Primary Care Provider UnavailAnkur Perera Jr Unavailable Allergies No Known Allergies Reason For Referral No Information Medications Medication SIG (Take, Route, Frequency, Duration) Notes Start Date End Date Status Fish Oil Active Multi Vitamin Daily Active Levothyroxine Sodium Active Vitamin C Active Prolia 60 MG/ML Solution as directed Subcutaneous Active Calcium Active Citalopram Hydrobromide Active Immunizations Vaccine Route Administration Date Status Comme nts Influenza Unknown 01/03/2020 Administered Influenza Unknown 02/10/2022 Administered Social History Social History Additional Details Category Social Info Options Details Miscellaneous: Marital status: Occupation: psychotherapist Problems Problem Type SNOMED Code ICD Code Onset Dates Problem Status W/U Status Risk Notes Problem Colon cancer screening (853381665) Colon cancer screening (Z12.11) Active confirmed Problem Abdominal bloating (440695202) Abdominal bloating (R14.0) Active confirmed Problem Constipation (91387298) Constipation, unspecified constipation type (K59.00) Active confirmed Problem Pre-surgery evaluation (431842142) Other specified pre-operative examination (Z01.818) Active confirmed Problem Long-term current use of drug therapy (563441405) Long-term current use of high risk medication other than anticoagulant (Z79.899) Active confirmed Problem Pain in pelvis (42846158) Pelvic pain (R10.2) Active confirmed Problem Abdominal discomfort (17017319) Abdominal discomfort (R10.9) Active confirmed Plan Of Treatment Future Test Test Name Order Date COLONOSCOPY 01/25/2015 COLONOSCOPY 07/01/2020 Insurance Providers Payer Name Payer Address Payer Phone Subscriber Number Group Number Insured Name Patient Relationship to Insured Coverage Start Date Coverage End Date [place] OF [place] [address] [place] [address] [phone] [id number] DENILSON NINO Self - patient is the insured [employer] [address] [place] [id number] DENILSON NINO Self - patient is the insured Medical (General) History Medical History History ICD Code Colonoscopy 10/08/20, hyperpl astic polyp, ten-year followup optional based on age anxiety/depression elevated cholesterol Osteoporosis Hypothyroidism Surgical History Surgery Date(Month/Year) total hip replacement, right 2010 lumpectomy, right breast total hip replacement, left 11/09
== END 2025-02-08 07:50 | disposition home or self-care (01) ==
LOC: HO.MAMMO 07:49
PROVIDERS: PCP Internal Medicine; Visit Provider Internal Medicine Endocrinology, Diabetes & Metabolism
DX: M81.0 Age-related osteoporosis without current pathological fracture (principal)
CPT/HCPCS: 77080

== ENCOUNTER → 2025-02-08 08:15 | Outpatient (BNV) | payer MEDICARE, OTHER, SELFPAY | PROVIDERS: PCP Internal Medicine; Visit Provider Radiology Diagnostic Radiology | DX: E28.39 Other primary ovarian failure (principal) | CPT/HCPCS: 77080 ==

== ENCOUNTER 2025-02-12 09:51 | Outpatient (REF) | payer MEDICARE, OTHER, SELFPAY ==
--- OUTSIDE RECORDS SUMMARY | 2025-02-12 11:42 | XMS_ITS | Clinical Summary ---
Author Organization [facility] Address [address] [place] [address] Care Team Providers Care Primer Press Operator Name Role Phone Unavailable Primary Care Provider [...]
--- OUTSIDE RECORDS SUMMARY | 2025-02-12 11:42 | XMS_ITS | Encounter Summary ---
Author Organization [facility] Address [address] [place] [address] Care Team Providers Care Sugar Plantation Manager Name Role Phone Brittney Cruz MD Primary Care Provider [phone] Encounter Details Date Type Department Care Team (Late Contact Info) Description 02/05/2025 Results Follow-Up [address] [phone] Johnnie Harrell MD [address] [place] [phone] Social History Tobacco Use Types Packs/Day Years Used Date Smoking Tobacco: Never Smokeless Tobacco: Never Comments No Sex and Gender Information Value Date Recorded Sex Assigned at Not on file Legal Sex Female 10:26 PM EST Gender Identity Not on file Sexual Orientation Not on file documented as of this encounter Plan of Treatment Upcoming Encounters Date Type Department Care Team (Late Contact Info) Description 05/21/2025 8:15 AM EST Office Visit [facility] [address] [phone] Johnnie Harrell MD [address] [place] [phone] 02/06/2026 7:30 AM EST Appointment [facility] [address] [place] [address] documented as of this encounter Visit Diagnoses Not on filedocumented in this encounter Care Teams Sugar Plantation Manager Relationship Specialty Start Date End Date Brittney Cruz MD [address] [facility] , [address] [facility]ician [facility] D/B/A: [facility] HEATHER Ding PCP - General Internal Medicine 04/05/18 documented as of this encounter
--- OUTSIDE RECORDS SUMMARY | 2025-02-12 11:42 | XMS_ITS | Clinical Summary ---
Author Organization [facility] Address [address] [place] [address] Phone Care Team Providers Care Eeg Technologist Name Role Phone Brittney Cruz MD Primary Care Provider [phone] Allergies No known active allergies Medications aspirin [...] Encounters Date Type Department Care Team Description 02/05/2025 10:19 AM EST - 02/05/2025 11:59 PM EST Hospital [facility] [address] [address] History of right breast cancer; History of partial mastectomy of right breast; Encounter for screening mammogram for malignant neoplasm of breast Discharge Disposition: Home or Self Care 02/05/2025 Results Follow-Up [address] [address] Johnnie Harrell MD from Last 3 Months Surgical History Surgery [...] 8:15 AM EST Office Visit General Surgery [address] [address] Johnnie Harrell MD [facility] [place] [address] 02/06/2026 7:30 AM EST Appointment [facility] [address] [phone] Health Maintenance Due Date Last Done Comments Colorectal Cancer Screening: Colonoscopy 1950 [place] Risk Assessment 02/22/2022 Hepatitis C Screening 02/22/2022 Medicare Annual Wellness Visit 02/22/2022 Osteoporosis Screening (Bone Density Screening) 02/22/2022 Social Influencers of Health Screening 02/22/2022 Depression Screening 03/22/2024 IPV Vaccines (2 of 3 - Adult catch-up series) 2024 03/21/2024 COVID-19 Vaccine (11 - Pfizer risk 2024- season) 2025 12/29/2024, 08/18/2024, 12/31/2023, Additional history exists RSV Immunization Adult Patients (1 - 1-dose 75+ series) 2026 Breast Cancer Screening 02/05/2027 02/06/20 25, 01/25/2024, 12/01/2022, Additional history exists DTaP,Tdap,and Td Vaccines (3 - Td or Tdap) 01/23/2034 01/24/2024, 09/07/2014 Zoster Vaccines Completed 11/03/2019, 03/23, 12/21/2016 Pneumococcal Vaccine: 50+ Years Completed 12/25/2019, 07/20/2016 Hepatitis A Vaccines Aged Out 01/24/2024, 10/26/2007, 02/22/2007, Additional history exists No longer eligible based on patient's age to complete this topic Hepatitis B Vaccines Completed 07/18/2024, 03/31/2024, 10/26/2007, Additional history exists Influenza Vaccine Completed 12/29/2024, , 12/22/2022, Additional history exists HIB Vaccines Aged Out [...] MAMMO DIGITAL SCREENING W SISI BILAT Routine 02/05/2025 10:34 AM EST History of right breast cancer History of partial mastectomy of right breast Encounter for screening mammogram for malignant neoplasm of breast from Last 3 Months Results * [facility] Mammo Digital Screening w Sisi bilat (02/05/2025 10:34 AM EST) Anatomical Region Laterality Modality Breast Bilateral Mammography 02/05/2025 11:5 7 AM EST Impressions 02/05/2025 12:16 PM EST Benign. BI-RADS CATEGORY: 1 - NEGATIVE RECOMMENDATION: Screening bilateral mammogram is recommended in 1 year. Mammo Location: [facility], [address] [place] [address], [address], . -------- FINAL REPORT -------- Dictated By: Fidencio Palomo Dictated Date: 02/05/2025 11:57 ET Assigned Physician: Fidencio Palomo Reviewed and Electronically Signed By: Fidencio Palomo Signed Date: 02/05/2025 12:16 ET Workstation ID: [id number] Transcribed By: Self Edit Transcribed Date: 02/05/2025 11:57 ET Narrative 02/05/2025 12:16 PM EST CLINICAL: 74 years old, Female, routine annual exam. COMPARISON: 01/25/2024 and 12/01/2022. TECHNIQUE: Bilateral MLO and CC views were obtained digitally with 3-D mammogram (digital breast tomosynthesis). Computer-aided detection was utilized in evaluation of this exam (CAD). FINDINGS: Bilateral postbiopsy marker clips. No suspicious mass or architectural distortion. No suspicious calcification. There has been no significant change from prior exam(s). BREAST DENSITY: B - There are scattered areas of fibroglandular density. Procedure Note Fidencio Palomo MD - 02/05/2025 CLINICAL: 74 years old, Female, routine annual exam. COMPARISON: 01/25/2024 and 12/01/2022. TECHNIQUE: Bilateral MLO and CC views were obtained digitally with 3-Dmammogram (digital breast tomosynthesis). Computer-aided detection wasutilized in evaluation of this exam (CAD). FINDINGS: Bilateral postbiopsy marker clips. No suspicious mass or architectural distortion. No suspiciouscalcification. There has been no significant change from prior exam(s). BREAST DENSITY: B - There are scattered areas of fibroglandular density. IMPRESSION: Benign. BI-RADS CATEGORY: 1 - NEGATIVE RECOMMENDATION: Screening bilateral mammogram is recommended in 1 year. Mammo Location: [facility], [address] [place] [address], [address], . -------- FINAL REPORT -------- Dictated By: Fidencio Palomo Dictated Date: 02/05/2025 11:57 ET Assigned Physician: Fidencio Palomo Reviewed and Electronically Signed By: Fidencio Palomo Signed Date: 02/05/2025 12:16 ET Workstation ID: [id number] Transcribed By: Self Edit Transcribed Date: 02/05/2025 11:57 ET Johnnie Harrell MD IMG BI PROCEDURES Final Result from Last 3 Months Insurance MEDICARE Care Teams Eeg Technologist Relationship Specialty Start Date End Date Brittney Cruz MD [address] [place] [address] , [address] [facility] D/B/A: [facility] HEATHER Ding PCP - General Internal Medicine 04/05/18
[2025-02-18 10:43] LABS: NTXCreaRU 58 mg/dL (20-275)
== END 2025-02-12 09:52 | disposition home or self-care (01) ==
LOC: HO.LNP 09:51
PROVIDERS: Visit Provider Internal Medicine Endocrinology, Diabetes & Metabolism
DX: M81.0 Age-related osteoporosis without current pathological fracture (principal)
CPT/HCPCS: 82523

== ENCOUNTER 2025-02-21 10:04 | Outpatient (AMB) | payer MEDICARE, OTHER, SELFPAY ==
--- NOTE | 2025-02-21 10:06 | MHC.OFFVIS ---
Vital Signs 02/21/25 10:16 Height 5 ft 5.91 in Weight 150 lb 2.157 oz BMI 24.3 BP 112/60 Blood Pressure Location Rt brachial Position Sitting Pulse 67 Pulse Source Pulse Oximeter Pulse Oximetry (%) 98 Oxygen Delivery Method Room Air Intake Visit Reasons: f/u osteoporosis Intake Note: Patient present today for Osteoporosis follow up. Grip Required: No Accompanied by: Self / Same As Patient Allergies No Known Allergies Allergy (Verified 02/21/25 10:14) Medication List - Last Reconciled 02/21/25 by Sebastian Luther MD alendronate 70 mg PO QWEEK amoxicillin 2,000 mg (4 x 500 mg) PO ONCE 1 day aspirin (Adult Low Dose Aspirin) 81 mg PO DAILY calcium carbonate (Calcium 600) 1,200 mg (2 x 600 mg calcium (1,500 mg)) PO DAILY 90 days citalopram 30 mg (1.5 x 20 mg) PO DAILY 90 days ibuprofen 600 mg PO Q6-8H PRN levothyroxine 100 mcg PO DAILY 90 days magnesium oxide 400 mg PO BEDTIME 90 days omega 4-jjw-kky-fish oil 60-90-500 mg (Fish Oil) 1 cap PO DAILY propranolol 20 mg PO BID sumatriptan succinate 25 mg PO Q2-4H PRN 90 days HPI Comments Details: 74 YO Female with PMHx Osteoporosis who is seen in F/U for Osteoporosis. First diagnosed in 2015. Received treatment in the past with Fosamax, from 2015 to 04/2020. Tolerated treatment well without complication. This was stopped by Dr. Rivera after she completed 5 years of therapy. She has Osteoporosis of the hip, and Osteopenia of the spine. Her BMD has worsened and she has failed treatment with Fosamax. After our initial visit she underwent a full biochemical evaluation for secondary causes of Osteoporosis, which was WNL. She then was started on Prolia as of 07/31/2021 and has received this q6 months. She is due for her third dose today. She has tolerated this well. No history of pathologic fracture or ONJ. Has 0-1 servings of dietary calcium per day in the form of yogurt. Takes Calcium supplement 1200 mg PO daily in divided doses. Does not take any Vitamin D currently. Denies ever using PPI, anticoagulant, antiepileptic or glucocorticoid medication. Does weight bearing exercise with [place] 4-5 days per week. 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 Menses was always regular. She is . She breastfed for a total of 18 months. Menopause was age 53. Denies a history of Kidney stones: Mother had a history of Osteoporosis. No Family history of hip fracture. UTD on dental cleanings and sees dentist every 6 months. No planned upcoming dental work or extractions. DXA dated 02/28/2021: FINDINGS: AP SPINE L1-L4: Current: BMD 1.035 g/cm2, Z-score 0.3, T-score -1.2, osteopenia, 3.2% increase from previous, 4.9% increase from baseline (<5% change is not significant). Prior: BMD 1.003 g/cm2. Baseline: BMD 0.987 g/cm2. LEFT FEMUR, NECK: Current: BMD 0.689 g/cm2, Z-score -1.0, T-score -2.5, osteoporosis. Prior: BMD 0.681 g/cm2. Baseline: BMD 0.738 g/cm2. LEFT FEMUR, TOTAL: Current: BMD 0.679 g/cm2, Z-score -1.3, T-score -2.6, osteoporosis, 3.3% decrease from previous, 9.2% decrease from baseline (<5% change is not significant). Prior: BMD 0.702 g/cm2. Baseline: BMD 0.748 g/cm2. Labs: Laboratory Tests 08/11/22 11:06 Sodium 145 Potassium 4.9 Creatinine 0.88 Estimated GFR > 60 Phosphorus 3.5 Albumin 4.3 25-OH Vitamin D Total 55.5 TSH 1.52 Free T4 1.13 last Prolia injection was 08/10/2023 . Received a dose of Reclast. No fracture since last visit. Urine NTX suppressed still in premenopausal range was on alendronate 70 mg qwkly that was stopped 01/2025 . Urine NTX 01/2025 was still suppressed [facility] Medical History Right hip pain Pure hypercholesterolemia Constipation by delayed colonic transit Mild major depression, single episode MEHRAN (generalized anxiety disorder) Mass of right hand Dyslipidemia Hip pain Vitamin D deficiency History of breast cancer Osteoporosis Depression with anxiety Hypothyroidism Surgical History H/O colonoscopy Cataract extraction status of eye History of left hip replacement History of lumpectomy of right breast History of section History of hip replacement Family History Father FH: prostate cancer Mother Stroke Hypertension Osteoporosis Sister COPD (chronic obstructive pulmonary disease) Social History Housing: House Are you a primary director medicare sales to a significant other at home: No Alcohol intake: current Alcohol intake frequency: holidays/special occasions only Alcohol type: wine Patient Tobacco Use Status: Never used Tobacco e-Cigarette/Vaping Use: Never Used Second Hand Smoke Exposure: No Advance Directives Date on File: 10/08/20 service: No Current occupational status: employed Current occupation: rt handed Current occupational exposures/hazards: No Cognitive needs: No Hearing needs: No Vision needs: Yes Physical Exam Vital Signs: Last Vital Signs Pulse 67 02/21/25 10:16 BP 112/60 02/21/25 10:16 Pulse Ox 98 02/21/25 10:16 Oxygen Delivery Method Room Air 02/21/25 10:16 BMI result Body Mass Index 24.3 Assessment & Plan Assessment & Plan (1) Osteoporosis: Code(s): M81.0 - Age-related osteoporosis without current pathological fracture Category: Medical Qualifiers: Osteoporosis type: age-related Presence of current pathological fracture: without current pathological fracture Qualified Code(s): M81.0 - Age-related osteoporosis without current pathological fracture Plan: This 73-year-old white female with a history of osteoporosis treated for 5 years with Fosamax and then Prolia for 1 1/2 years. Her DEXA bone density shows borderline osteoporosis in the hip with a T-score -2.7. Patient has not had fracture. Secondary workup is negative. Last Prolia injection was 07/2023 and on alendronate stopped 01/2025. Urine NTX increase but still in premenopausal range. Recent DEXA showed borderline osteoporosis in the wrist The plan is to continue to observe on calcium and vitamin-D . Will have patient follow-up in one year Coding Level of Care Code Est Pt Level 3 (47190) Diagnoses Age-related osteoporosis without current pathological fracture M81.0 Osteoporosis type: age-related Presence of current pathological fracture: without current pathological fracture
[2025-02-21 10:16] VITALS: BP 112/60; PULSE 67; O2SAT 98; BMI 24.3
--- OUTSIDE RECORDS SUMMARY | 2025-02-21 11:25 | XMS_ITS | Encounter Summary ---
Author Organization [facility] Address [address] [place] [address] Care Team Providers Care Inventory Auditor Name Role Phone Brittney Cruz MD Primary Care Provider [phone] Encounter Details Date Type Department Care Team (Late Contact Info) Description 02/05/2025 Results Follow-Up [address] [phone] Johnnie Harrell MD [address] [place] [phone] Social History Tobacco Use Types Packs/Day Years [...] Description 05/21/2025 8:15 AM EST Office Visit [facility] [address] [phone] Johnnie Harrell MD [address] [place] [phone] 02/06/2026 7:30 AM EST [facility]ointment [facility] [address] [place] [address] documented as of this encounter Visit Diagnoses Not on filedocumented in this encounter Care Teams Inventory Auditor Relationship Specialty Start Date End Date Brittney Cruz MD [address] [facility] , [address] [facility] D/B/A: [facility] HEATHER Ding PCP - General Internal Medicine 04/05/18 documented as of this encounter
--- OUTSIDE RECORDS SUMMARY | 2025-02-21 11:26 | XMS_ITS | Clinical Summary ---
Author Organization [facility] Address [address] [place] [address] Phone Care Team Providers Care Internet Database Specialist Name Role Phone Brittney Curz MD Primary Care Provider [phone] Allergies No known active allergies Medications aspirin [...] EST Hospital Encounter [facility] [address] [phone] History of right breast cancer; History of partial mastectomy of right breast; Encounter for screening mammogram for malignant neoplasm of breast Discharge Disposition: Home or Self Care 02/05/2025 Results Follow-Up [address] [phone] Johnnie Harrell MD from Last [...] 8:15 AM EST Office Visit General Surgery [address] [phone] Johnnie Harrell MD [facility] [place] [address] 02/06/2026 7:30 AM EST Appointment [facility] [address] [phone] Health Maintenance Due Date Last [...] year. Mammo Location: [facility], [address] [place] [address], [address], . -------- FINAL REPORT -------- Dictated By: Fidencio Palomo Dictated Date: 02/05/2025 11:57 ET Assigned Physician: Fidencio Palomo Reviewed and Electronically Signed By: Fidencio Palomo Signed Date: 02/05/2025 12:16 ET Workstation ID: [id number] Transcribed By: Self Edit Transcribed Date: 02/05/2025 [...] year. Mammo Location: [facility], [address] [place] [address], [address], . -------- FINAL REPORT -------- Dictated By: Fidencio Palomo Dictated Date: 02/05/2025 11:57 ET Assigned Physician: Fidencio Palomo Reviewed and Electronically Signed By: Fidencio Palomo Signed Date: 02/05/2025 12:16 ET Workstation ID: [id number] Transcribed By: Self Edit Transcribed Date: 02/05/2025 11:57 ET Johnnie Harrell MD IMG BI PROCEDURES Final Result from Last 3 Months Insurance MEDICARE Care Teams Internet Database Specialist Relationship Specialty Start Date End Date Brittney Cruz MD [address] [place] [address] , [address] [facility] D/B/A: [facility] HEATHER Ding PCP - General Internal Medicine 04/05/18
--- OUTSIDE RECORDS SUMMARY | 2025-02-21 11:26 | XMS_ITS | Clinical Summary ---
Author Organization [facility] Address [address] [place] [address] Care Team Providers Care Technical Services Assistant Name Role Phone Unavailable Primary Care Provider [...]
== END 2025-02-21 10:58 | disposition home or self-care (01) ==
LOC: HO.ENCR 10:05
PROVIDERS: PCP Internal Medicine; Visit Provider Internal Medicine Endocrinology, Diabetes & Metabolism
DX: M81.0 Age-related osteoporosis without current pathological fracture (principal)
CPT/HCPCS: 99213

== ENCOUNTER → 2025-02-21 10:04 | Outpatient (BNVA) | payer MEDICARE, OTHER, SELFPAY | PROVIDERS: PCP Internal Medicine; Visit Provider Internal Medicine Endocrinology, Diabetes & Metabolism | DX: M81.0 Age-related osteoporosis without current pathological fracture (principal) | CPT/HCPCS: 99212 ==